=== PATIENT | female | born 1975 | race Caucasian/White ===

== ENCOUNTER 2025-03-13 14:46 | Outpatient (AMB) | payer BC, SELFPAY ==
--- OUTSIDE RECORDS SUMMARY | 2025-01-31 04:30 | XMS_ITS ---
Author Organization [facility] [address] Address [address] [place] [address] Care Team Providers Care Pharmaceutical Analyst Name Role Phone LILIAN ALBARRAN Unavailable [phone] Encounters Encounter Location Date Provider Diagnosis [facility] [address] [place] [address] 01/31/2025 LILIAN ALBARRAN Plan Of Treatment Next Appt Details Provider Name:LILIAN ALBARRAN, 03/27/2025 02:45:00 PM, [address], [place], [address], Progress Notes * Douglas POZOaDOB:1975 (49 yo F)Acc No.[id number]:01/31/2025 Patient: Demi MOHINIDouglasa Provider: Matilde JALLOH PA-C :1975 A ge:49 Y S ex:Female Date:01/31/2025 Address:[address] Subjective: * Chief Complaints: * * Medical History: Objective: * Vitals: Assessment: Plan: * Treatment: * Images: Billing Information: * Visit Code: * Procedure Codes: * Electronic signature of NED ALBARRAN PA-C on 03/13/2025 at 06:25 PM EDT Sign off status: Pending * Provider: Matilde JALLOH PA-C Date: 0 01/31/2025 Generated for Ariela reilly/Candelario/eTransmitting on: 0 03/13/2025 06:25 PM EDT
--- NOTE | 2025-03-13 15:02 | MHC.OFFVIS ---
Intake Visit Reasons: sooner appt for results of MRI Allergies prednisone Allergy (Unknown, Verified 03/13/25 12:28) Unknown sulfamethoxazole (From Bactrim) Allergy (Unknown, Verified 03/13/25 12:28) Unknown trimethoprim (From Bactrim) Allergy (Unknown, Verified 03/13/25 12:28) Unknown Medication List - Last Reconciled 03/13/25 by Brit Esteban MD anastrozole 1 mg PO DAILY gabapentin 600 mg PO DAILY levothyroxine (Synthroid) 150 mcg PO DAILY tirzepatide (weight loss) (Zepbound) 7.5 mg subcut QWEEK HPI Comments Details: Left arm numbness is less. MRI of brachial plexus is negative. Has some C5-6 degen disc disease. Lately calves have been hurting more. 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 She had left forearm , elbow down and numbness and tingly and uncomfortable in dorsum of hand and thenar eminence more consistent. She was doing okay. She was having some numbness and tingling to left hand on and off for last few months. There was some discomfort, but no significant pain. No weakness. Stable pattern and degree of discomfort in lower legs, some stabbing in toes and sides of feet, generally controlled with gabapentin. She was still going for some walks. Sleep was generally okay. ? Completed oral chemo in 01/2022. Completed RT in 01/2020 to left clavicular area. Arm symptoms have resolved. MRI brain in spring 2021 was negative. No headaches. Stopped amitriptyline after not feeling great in morning one day. 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 She had lumpectomy followed by chemotherapy and radiation. She had second round of chemotherapy with Herceptin and tamoxifen from 01/2020 - 09/06/2020. Shortly after starting second round of chemotherapy in 01/2020, she started to get headaches described as dull, mild pressure over forehead and top of head which became more frequent and persistent. No other associated symptoms. In 11/2019, after having first round of chemotherapy, she noticed some restless in her legs, pain in the right leg, pins and needles, and stabbing pains in the toes of both feet for which she has been using gabapentin. She has disrupted night sleep and frequently will wake up and stay up for one hour or more during the night. She is under considerable stress at home with her ex- and taking care of 3 small children. [facility] Medical History (Updated 03/13/25 @ 15:15 by Brit Esteban MD) Breast cancer Hypothyroidism Raynauds syndrome Carpal tunnel syndrome Peripheral neuropathy Tension headache Review of Systems Const Details: General/Constitutional:? Change in appetitedenies.? Chillsdenies.? Fatigueadmits.? Feverdenies.? Weight gaindenies.? Weight lossdenies. ???Sleep:? Difficulty getting to sleepdenies.? Difficulty maintaining sleepadmits.? Urge to move legsadmits.? Teeth grindingadmits.? Shouting or Kicking during sleepdenies.? Abnormal behavior during sleepdenies.? Excessive sleepdenies.? Snoringadmits.? Daytime sleepinessdenies. ???Respiratory:? Shortness of breathadmits.? Chest paindenies.? Coughadmits. ???Cardiovascular:? Chest pain at restdenies.? Chest pain with exertiondenies.? Claudicationdenies.? Dizzinessdenies.? Fluid accumulation in the legsdenies.? Irregular heartbeatdenies.? Palpitationsdenies. ???Gastrointestinal:? Abdominal paindenies.? Constipationadmits.? Diarrheadenies.? Difficulty swallowingdenies.? Heartburnadmits.? Nauseaadmits.? Rectal bleedingdenies. ???Genitourinary:? Frequent urinationdenies.? Urgencydenies.? Incontinencedenies.? Erectile Dysfunctiondenies. ???Musculoskeletal:? Neck paindenies.? Back paindenies.? Muscle achesdenies.? Painful jointsdenies.? Sciaticadenies.? Weaknessdenies. ???Neurologic:? Difficulty swallowingdenies.? Balance difficultydenies.? Coordinationnormal.? Difficulty speakingdenies.? Dizzinessdenies.? Faintingdenies.? Gait abnormalitydenies.? Headacheadmits.? Loss of strengthdenies.? Loss of use of extremitydenies.? Low back paindenies.? Memory lossadmits.? Seizuresdenies.? Ticsdenies.? Tingling/NumbnessFeet. Pain in freezing feeling in the hands.? Transient loss of visiondenies.? Tremordenies. ???Psychiatric:? Anxietydenies.? Auditory/visual hallucinationsdenies.? Delusionsdenies.? Depressed mooddenies.? Stressorsdenies.? Substance abusedenies.? Suicidal thoughtsdenies. Physical Exam Neuro Other: Neurological: Abnormal neurological findings:??Ankle reflexes are 1+. No sensory deficits. Weakness of the abductor pollicis brevis bilaterally. 5-/5 L tricep. 5-/5 L finger spread.?Mental Status:??alert and oriented X 3,?Normal attention, orientation, memory and affect.?Cranial Nerves:??Pupils are equal, round and reactive to light. Fundoscopy shows normal disc bilaterally. External occular muscles are intact. Visual barron are full, no ptosis. Face is symmetrical, no facial weakness or droop. Facial sensations are normal. Tongue protrudes in midline. Palate elevates symmetrically. Shoulder shrugging is normal..?Motor Examination:??Weak APB bilaterally otherwise Normal muscle tone, bulk and strength,No atrophy or fasciculations,No drift of the extended upper extremities,Deep tendon reflexes are 2+,Plantars are flexor.?Straight Leg Raising:??90 degrees.?Sensory Exam:??Normal light touch, temperature, pinprick, vibration and joint-position sensations?,?Rhomberg sign is absent.?Coordination:??no ataxia,?no titubation,?theuyf-iy-kizw, pxgp-ujrm-ivrl test and rapid alternating movements were normal.?Gait Exam:??Within normal limits.?Cerebellar Signs:??Wgjegt-bq-gvmt and jcdf-ex-awaj is normal,?no dysdiadochokinesia?.?Extrapyramidal System:??No tremor, rigidity with normal facial expressions,?No bradykinesia, no bradyphrenia. Normal arm swing and posture. No propulsion or retropulsion.?Speech:??Normal,?no dysphasia or dysarthria..? Mini Mental Status Exam: Level of Consciousness:??Alert.?Orientation:??Knows correct year, month, date, day and season,?Knows correct city, county and state. Knows correct location and floor.?Registration:??Able to register 3 objects.?Attention:??Serial 7's performed accurately.?Recall:??Able to recall 3 out of 3 objects.?Language:??Normal spontaneous speech, fluency, repetition,naming, comprehension, reading and writing.?Total Score:??30/30.? General Examination: GENERAL APPEARANCE:??normal,?in no acute distress.?HEART:??S1, S2 normal,?no murmurs.?LUNGS:??clear anteriorly and posteriorly.?MUSCULOSKELETAL:??normal.?EXTREMITIES:??no edema.?PSYCH:??alert, oriented,?cognitive function intact,?cooperative with exam.? Assessment & Plan Assessment & Plan (1) Brachial plexus disorders: Comment: 11/28/24 NCV/EMG UE Normal motor and sensory nerve conduction velocities in the upper extremities. Normal EMG in the left C5-T1 innervated muscles. 12/20/24 Normal MRI brachial plexus. Mild to moderate multifocal degen. disc disease zaheer. at C5-6 Code(s): G54.0 - Brachial plexus disorders Category: Medical (2) Cervical radiculitis: Code(s): M54.12 - Radiculopathy, cervical region Category: Medical Plan Use cervical pillow. Neck stretching exercises Coding Level of Care Code Est Pt Level 4 (13399) Diagnoses Brachial plexus disorders G54.0 Cervical radiculitis M54.12
--- OUTSIDE RECORDS SUMMARY | 2025-03-13 18:26 | XMS_ITS | Clinical Summary ---
Author Organization [facility] Address [address] [place] [address] Phone Care Team Providers Care Process Checker Name Role Phone Parris Mcdaniel MD Primary Care Prov ider Allergies Active Allergy Reactions Criticality Noted Date Comments Pollen Extracts 11/18/2020 Prednisolone 05/21/2020 Other Reaction(s): Rash/Dermatitis Dose pack Sulfamethoxazole-Trimethopri m Rash 07/31/2019 Medications cholecalcifero l, vitamin D3, 100 mcg (4,000 unit) tablet Take by mouth. Ac tive gabapentin (NEURONTIN) 300 mg capsule Take 300 mg by mouth 2 times daily. Active loratadine (CLARITIN) 10 mg tablet Take 10 mg by mouth daily. Active ondansetron (ZOFRAN) 4 mg tablet Take by mouth. 4 Active semaglutide (Wegovy) 1 mg/0.5 mL injection pen INJECT 1 MG SUBCUTANEOUSLY WEEKLY 4 Active levothyroxine (SYNTHROID, LEVOTHROID) 150 mcg tablet Take 1 Tablet by mouth daily for 180 days. 90 tablet 3 5 Active sodium,potassi um,mag sulfates (Suprep Bowel Prep Kit) 17.5-3.13-1.6 gram recon soln bowel prep kit oral solution Take 177ML by mouth for 2 doses. SEE INSTRUCTIONS PROVIDED BY OFFICE. 1 kit 5 Active anastrozole (ARIMIDEX) 1 mg Take 1 tablet (1 mg total) by mouth 1 (one) time each day Swallow whole with a drink of water. 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 S/p left partial mastectomy and sentinel lymph node biopsies on 10/31/2019 Vitamin D insufficiency 07/07/2018 Eczema 07/05/2018 Borderline hypercholesterolemia 06/24/2018 Hypothyroidism 06/24/2018 Resolved Problems Problem Noted Date Diagnosed Date Resolved Date Morbid obesity with BMI of 4 0.0-44.9, adult ([facility] V24, [facility] V28) 04/11/2024 10/17/2024 Class 3 severe obesity in adult 08/29/2020 10/17/2024 Encounters Date Type Department Care Team Description 03/13/2025 Telephone Adult Medicine [address] [phone] Parris Cerna MD 02/01/2025 6:00 PM EDT Office Visit [facility] [address] [phone] Caitlyn Owen NP Ceruminosis, bilateral (Primary Dx); Otalgia of both ears 02/01/2025 Telephone Adult Medicine [address] [phone] Brenda Armstrong [place] 12/22/2024 2:56 PM EDT Anesthesia Event [facility] Endoscopy [address] [place] [phone] Drew Livingston MD Chang, Daniel J, MD 12/22/2024 12:48 PM EDT - 12/22/2024 11:59 PM EDT Hospital Encounter [facility] Endoscopy [address] [place] [phone] Kiran Curiel MD Kapplan, Jacob A, CRNA Colon cancer screening Discharge Disposition: Home or Self Care 12/22/2024 Telephone Gastroenterology - [address] [phone] Myla Cabrales [place] 12/20/2024 12:47 PM EDT - 12/20/2024 11:59 PM EDT Hospital Encounter [facility] MRI [address] [place] [phone] Brachial plexus disorders Discharge Disposition: Home or Self Care from Last 3 Months Immunizations Name Administration Dates Next Due Influenza Quadravalent, MDCK , 0.5ml, preservative free (Flucelvax) 6mo and older 04/22/2022,04/28/2020 Influenza trivalent, 0.5mL, preservative free (Fluarix; FluLaval; Fluzone) ages 6mo and older (Afluria) 3 years and older 03/19/2021,02/11/2019 [employer] PTY SARS-CoV-2 COVID-19, mRNA, LNP-S, preservative free 05/08/2021,09/17/2020,08/27/2020 Tdap Tetanus diptheria acell ular pertussis (Boostrix; Adacel) 7yo and older 12/22/2022,02/19/2012,12/20/2011 Surgical History Surgery Date Site/Laterality Comments OTHER SURGICAL HISTORY PROCEDURE: ND ARTHRS KNEE DRLG OSTEOCHOND DISSECANS INT FIXJ OTHER SURGICAL HISTORY 06/02/2019 Right PROCEDURE: ---- OTHER ----; COMMENT: port a cath BREAST BIOPSY PROCEDURE: BX BREAST; PERC NEEDLE CORE W/IMAG GUID; COMMENT: left breast 2019 BREAST LUMPECTOMY 10/2019 Left PROCEDURE: HISTORICAL BREAST LUMPECTOMY OTHER SURGICAL HISTORY Bilateral PROCEDURE: ND UNLISTED LAPAROSCOPY PROCEDURE OVIDUCT OVARY; COMMENT: BSO OOPHORECTOMY Bilateral KNEE SURGERY Medical History Medical History Date Comments Hypothyroidism 06/24/2018 DX:Hypothyroidis m Borderline hypercholesterolemia 06/24/2018 DX:Borderline hypercholesterolemia Borderline hypertension 06/24/2018 DX:Borde rline hypertension Morbid obesity with BMI of 4 0.0-44.9, adult ([facility], [facility] V28) 06/24/2018 DX:Morbid obesity wit h BMI of 40.0-44.9, adult ([facility]) Eczema 07/05/2018 DX:Eczema Vitamin D insufficiency 07/07/2018 DX:Vitam in D insufficiency Ascending aorta dilatation ( [facility] V24) 10/13/2019 DX:Ascending aorta dilatatio n ([facility]); COMMENT: 10/15 4.1 cm on echo Breast cancer ([facility] V24, [facility] V28) 07/19/2019 DX:Breast cancer ([facility]); COMM ENT: 05/16 left infiltrating ductal carcinoma Breast cancer ([facility] V24, [facility] V28) 07/19/2019 DX:Breast cancer ([facility]) Osteopenia 09/14/2023 DX:Osteopenia 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 Family History Medical History Relation Name Comments Breast cancer Aunt Maternal No Known Problems Daughter Hypertension Father Other: Prediabetes Half-Sister 1 Maternal No Known Problems Half-Sister 2 Maternal No Known Problems Half-Sister 3 Maternal Emphysema Maternal Grandfather + Smoke r Heart failure Maternal Grandmother Stroke Maternal Grandmother Cervical cancer Mother Diabetes Mother Other: Atrial Fibrillation Mother No Known Problems Son 1 No Known Problems Son 2 Colon cancer Neg Hx Heart attack Neg Hx Ovarian cancer Neg Hx Prostate cancer Neg Hx Relation Name Status Comments Aunt Maternal Daughter Alive Father Alive Half-Sister 1 Maternal Alive Half-Sister 2 Maternal Alive Half-Sister 3 Maternal Alive Maternal Grandfather Maternal Grandmother Mother Alive Paternal Grandfather Paternal Grandmother Son 1 Alive Son 2 Alive Social History Tobacco Use Types Packs/Day Years Used Date Smoking Tobacco: Never Smokeless Tobacco: Never Alcohol Use Standard Drinks/Week Comments No 0 (1 standard drink = 0.6 oz pur e alcohol) Housing Instability Answer Date Recorde d Are you worried that in the next 2 months you may not have stable housing? No 02/01/2025 Food Access & Nutrition Answer Date Rec orded Do you have access to a vari ety of food including fruits and vegetables? Yes 02/01/2025 Access to Healthcare Answer Date Record ed Within the last 3 months, ho w many times did you visit the emergency department for your medical care? 0 02/01/2025 Health Literacy Answer Date Recorded How often do you need to hav e someone help you when you read instructions, pamphlets, or other written material from your doctor or pharmacy? Never 02/01/2025 Caregiver: How often do you need to have someone help you when you read instructions, pamphlets, or other written material from your doctor or pharmacy? Not on file 02/01/2025 Financial Risk Answer Date Recorded How hard is it for you to pa y for the very basics like food, housing, medical care, and air conditioning / heating? Not very hard 02/01/2025 Transportation Answer Date Recorded Has the lack of transportati on kept you from meetings, work, or from getting things needed for daily living? No Has the lack of transportati on kept you from medical appointments or from getting medications? No 02/01/2025 Social Isolation Answer Date Recorded How often do you feel lonely or isolated from th ose around you? Never 02/01/2025 Food Risk Answer Date Recorded Within the past 12 months we worried whether our food would run out before we got money to buy more. Never true 02/01/2025 Within the past 12 months th e food we bought just didn't last and we didn't have money to get more. Never true 02/01/2025 Dependent Care Answer Date Recorded Do you need help finding or paying for care for your loved ones. For example, child nutrition assistant or elderly care for an older adult? No 02/01/2025 Education Answer Date Recorded Do you think completing more education or training, like finishing a GED, going to college, or learning a trade, would be helpful for you? No 02/01/2025 Employment and Income Answer Date Recor ded During the last four weeks, have you been actively looking for work? No 02/01/2025 Living Situation Answer Date Recorded What is your living situation? 0 02/01/2025 Interpersonal Safety Answer Date Record ed Physical Abuse 12/22/2024 Verbal Abuse 12/22/2024 Comments No Sex and Gender Information Value Date Recorded Sex Assigned at Not on file Legal Sex Female 4:22 PM EDT Gender Identity Not on file Sexual Orientation Not on file Occupation Industry Job Start Date Job End Date teacher Not on file Not on file Not on file Obstetrics History * This document contains information received from the source organization and may not represent a complete record from that organization. Para Term AB IAB SAB Ectopic Multiple Livin g Live Births 3 2 2 1 3 3 Date Outcome GA Total Labor Labor/2nd/3rd Weight Sex Type Anes PTL Josselin A1 A5 Name Clin Term M Living Term M Living Term F Living Last Filed Vital Signs Vital Sign Reading Time Taken Comments Blood Pressure 111/85 02/01/2025 5:43 PM EDT Pulse 76 02/01/2025 5:43 PM EDT Temperature 36.3 C (97.3 F) 02/01/2025 5:43 PM EDT Respiratory Rate 16 12/22/2024 3:38 PM EDT Oxygen Saturation 98% 12/22/2024 3:28 PM EDT Inhaled Oxygen Concentration - - Weight 88.5 kg (195 lb) 12/22/2024 2:33 PM EDT Height 171.5 cm (5' 7.5 ) 12/22/2024 2:33 PM EDT Body Mass Index 30.09 12/22/2024 2:33 PM EDT Plan of Treatment Upcoming Encounters Date Type Department Care Team (Late st Contact Info) Description 03/29/2025 2:30 PM EDT [facility]ointment [facility] [address] [phone] 04/17/2025 2:40 PM EDT Office Visit Breast Care [address] [phone] Ana Maria Sánchez MD [address] [place] [phone] 05/21/2025 2:30 PM EST Office Visit [facility] Hematology Oncology [address] [place] [phone] Ryanne Flaherty DO [address] [place] [phone] 08/23/2025 3:40 PM EST Office Visit Endocrinology - [place] [address] [place] [phone] Leeanna Berman PA [address] [place] [address] Health Maintenance Due Date Last Done Comments Hepatitis B Vaccines (1 of 3 - 19+ 3-dose series) 1994 Pneumococcal Vaccine: Pediatrics (0 to 5 Years) and At-Risk Patients (6 to 49 Years) (1 of 2 - PCV) 1994 Depression Screening 06/28/2024 COVID-19 Vaccine ( - 2024- season) 2025 05/08/2021, 09/17/2020, 08/27/2020 Influenza Vaccine (#1) 2025 , 04/17/2023, 04/22/2022, Additional history exists Breast Cancer Screening 03/27/2025 09/26/19, 09/07/2024, 09/03/2023, Additional history exists Social Influencers of Health Screening 02/01/2026 02/01/2025 Cholesterol Screening (Lipid Panel) 04/10/2029 04/10/2024, 04/10/2024 Cervical Cancer Screening: HPV 09/07/2029 09/07/2024, 05/19/2019 DTaP,Tdap,and Td Vaccines (4 - Td or Tdap) 12/22/2032 12/22/2022, 02/19/2012, 12/20/2011 Colorectal Cancer Screening: Colonoscopy 12/22/2034 12/22/2024 HIV Screening Completed 08/15/2019 Hepatitis C Screening Completed 08/15/2019 HIB Vaccines Aged Out No longer eligi ble based on patient's age to complete this topic HPV Vaccines Aged Out No longer eligi ble based on patient's age to complete this topic Hepatitis A Vaccines Aged Out No long er eligible based on patient's age to complete this topic IPV Vaccines Aged Out No longer eligi ble based on patient's age to complete this topic MMR Vaccines Aged Out No longer eligi ble based on patient's age to complete this topic Meningococcal ACWY Vaccine Aged Out N o longer eligible based on patient's age to complete this topic Meningococcal B Vaccine Aged Out No l onger eligible based on patient's age to complete this topic RSV Immunization Patients Under 20 months Aged Out No longer eligible based on patient's age to complete this topic Varicella Vaccines Aged Out No longer eligible based on patient's age to complete this topic Procedures Procedure Name Priority Date/Time Associated Diagnosis Comments POC RAPID [id number], MOLECULAR Routine 02/03/2025 11:54 AM EDT Otalgia of both ears ND REMOVAL CERUMEN IMPACTED IRRIGATION/LAVAGE UNILATERAL Routine 02/01/2025 5:52 PM EDT Ceruminosis, bilateral COLONOSCOPY Routine 12/22/2024 3:17 PM EDT Colon cancer screening MR CHEST WO AND W CONTRAST Routine 12/20/2024 2:08 PM EDT Brachial plexus disorders MG MAMMO DIAGNOSTIC ADDL VIEWS RIGHT Routine 09/25/2024 3:13 PM EDT Breast asymmetry HPV WITH REFLEX GENOTYPE Routine 09/07/2024 10:11 AM EDT Encounter for well woman exam with routine gynecological exam Screening for cervical cancer LIPID PANEL Routine 04/10/2024 HEPATITIS C SCREENING Routine 08/15/2019 HIV SCREENING Routine 08/15/2019 from Last 3 Months or Most Recently Relevant to Health Maintenance Results * Poc Rapid [id number], MOLECULAR (02/03/2025 11:54 AM EDT) COVID-19/SARS- COV-2 Rapid POC Negative Negative Internal Control Pass Yes Yes Swab Nasopharyngeal structure / Unknown 02/03/2025 11:54 AM EDT Caitlyn Owen NP POINT OF CARE TEST ENTER/EDIT ORDERABLES Final Result * ND REMOVAL CERUMEN IMPACTED IRRIGATION/LAVAGE UNILATERAL (02/01/2025 5:52 PM EDT) Narrative Caitlyn Owen NP - 02/01/2025 5:52 PM EDT Caitlyn Owen NP 02/01/2025 6:21 PM Ear cerumen removal Date/Time: 02/01/2025 5:52 PM Performed by: Caitlyn Owen NP Authorized by: Caitlyn Owen NP Informed Consent: Laterality: Bilateral Relevant images/test results available and reviewed: yes Health status cleared: Yes Procedure/treatment, purpose, treatment alternatives, risks/potential complications and benefits explained: yes Patient agrees, verbalizes understanding, and wants to proceed: yes Consent given by: Patient Procedure details: Location: L ear Procedure type: irrigation Post-procedure details: Inspection: TM intact Hearing quality: Improved Caitlyn Owen NP IN CLINIC/BEDSIDE ORDERABLES F inal Result * COLONOSCOPY Anesthesia - MAC; [facility] ENDOSCOPY (12/22/2024 3:17 PM EDT) Anatomical Region Laterality Modality Other 12/22/2024 2:49 PM EDT Impressions 12/22/2024 3:17 PM EDT - The entire examined colon is normal on direct and retroflexion views. - No specimens collected. Recommendation: - Repeat colonoscopy in 10 years for screening purposes. Narrative 12/22/2024 3:17 PM EDT [facility] GI Patient Name: Hollie Pozo Procedure Date: 12/22/2024 2:49 PM Date of : 1975 Age: 49 Room: ROOM 14 Gender: Female Note Status: Finalized Attending MD: Kiran Curiel MD, Procedure Date No Time: 12/22/2024 Procedure: Colonoscopy Indications: Screening for colorectal malignant neoplasm Providers: Kiran Curiel MD Referring MD: Kiran Curiel MD Medicines: Propofol per Anesthesia Complications: No immediate complications. Estimated Blood Loss: Estimated blood loss: none. Procedure: Pre-Anesthesia Assessment: - ASA Grade Assessment: II - A patient with mild systemic disease. After I obtained informed consent, the scope was passed under direct vision. Throughout the procedure, the patient's blood pressure, pulse, and oxygen saturations were monitored continuously.The Colonoscope was introduced through the anus and advanced to the cecum, identified by appendiceal orifice and ileocecal valve. The colonoscopy was performed without difficulty. The patient tolerated the procedure well. The quality of the bowel preparation was adequate. Findings: The perianal and digital rectal examinations were normal. The entire examined colon appeared normal on direct and retroflexion views. Procedure Code(s): --- Professional --- G0121, Colorectal cancer screening; colonoscopy on individual not meeting criteria for high risk Diagnosis Code(s): --- Professional --- Z12.11, Encounter for screening for malignant neoplasm of colon CPT copyright 2020 [employer]. All rights reserved. The codes documented in this report are preliminary and upon surgical coder review may be revised to meet current compliance requirements. Kiran Curiel MD 12/22/2024 3:17:03 PM This report has been signed electronically.Kiran Curiel MD Number of Addenda: 0 Note Initiated On: 12/22/2024 2:49 PM Scope In: Scope Out: Endoscopy Department at [facility] - [address] [place] [phone] Procedure Note Kiran Curiel MD - 12/22/2024 [facility] GI Patient Name: Hollie Pozo Procedure Date: 12/22/2024 2:49 PM Date of : 1975 Age: 49 Room: ROOM 14 Gender: Female Note Status: Finalized Attending MD: Kiran Curiel MD, Procedure Date No Time: 12/22/2024 Procedure: Colonoscopy Indications: Screening for colorectal malignant neoplasm Providers: Kiran Curiel MD Referring MD: Kiran Curiel MD Medicines: Propofol per Anesthesia Complications: No immediate complications. Estimated Blood Loss: Estimated blood loss: none. Procedure: Pre-Anesthesia Assessment: - ASA Grade Assessment: II - A patient with mild systemic disease. After I obtained informed consent, the scope was passed under direct vision. Throughout theprocedure, the patient's blood pressure, pulse, and oxygen saturations were monitored continuously.The Colonoscope was introduced through the anus and advanced to the cecum, identified by appendiceal orifice and ileocecal valve. The colonoscopy was performed without difficulty. The patient tolerated the procedure well. The quality of the bowel preparation was adequate. Findings: The perianal and digital rectal examinations were normal. The entire examined colon appeared normal on direct and retroflexion views. Procedure Code(s): --- Professional --- G0121, Colorectal cancer screening; colonoscopy on individual not meeting criteria for high risk Diagnosis Code(s): --- Professional --- Z12.11, Encounter for screening for malignantneoplasm of colon CPT copyright 2020 [employer]. All rights reserved. The codes documented in this report are preliminary and upon surgical coder reviewmay be revised to meet current compliance requirements. Kiran Curiel MD 12/22/2024 3:17:03 PM This report has been signed electronically.Kiran Curiel MD Number of Addenda: 0 Note Initiated On: 12/22/2024 2:49 PM Scope In: Scope Out: Endoscopy Department at [facility] - [address] [place] [phone] IMPRESSION: - The entire examined colon is normal on direct and retroflexion views. - No specimens collected. Recommendation: - Repeat colonoscopy in 10 years for screening purposes. Kiran Curiel MD GI~PROCEDURE ORDERABLES Fin al Result * MR Chest wo and w Contrast (12/20/2024 2:08 PM EDT) Anatomical Region Laterality Modality Chest, Body Magnetic Resonan ce 12/20/2024 2:33 PM EDT Impressions 12/20/2024 2:40 PM EDT Normal MRI of the left brachial plexus. -------- FINAL REPORT -------- Dictated By: Rene Loaiza Dictated Date: 12/20/2024 14:33 ET Assigned Physician: Rene Loaiza Reviewed and Electronically Signed By: Rene Loaiza Signed Date: 12/20/2024 14:40 ET Workstation ID: [id number] Transcribed By: Self Edit Transcribed Date: 12/20/2024 14:33 ET Narrative 12/20/2024 2:40 PM EDT PROCEDURE: MRI of the left brachial plexus with intravenous contrast. HISTORY: BRACHIAL PLEXUS DISORDER ? LESION. TECHNIQUE: Multiplanar multisequence MRI of the chest with and without intravenous contrast. IV contrast dose: 17 mL Dotarem from a 20 mL vial with 3 mL discarded. COMPARISON: None. FINDINGS: The nurse of the left brachial plexus are normal in caliber and signal. There is no compressing mass or fluid collection. No abnormal enhancement. Limited views of the right brachial axis are also unremarkable. Mild-moderate multifocal degenerative changes of the cervical endplates and facet joints, most prominent at C5-6. Partially visible mild degenerative changes of both glenohumeral joints. No concerning marrow infiltrative lesion. Visualized portions of the upper mediastinum are normal. Incidental note of a bovine aortic arch. Soft tissues of the neck are unremarkable. There is no mass, fluid collection, or lymphadenopathy. Procedure Note Rene Loaiza MD - 12/20/2024 PROCEDURE: MRI of the left brachial plexus with intravenous contrast. HISTORY: BRACHIAL PLEXUS DISORDER ? LESION. TECHNIQUE: Multiplanar multisequence MRI of the chest with and withoutintravenous contrast. IV contrast dose: 17 mL Dotarem from a 20 mL vial with 3 mL discarded. COMPARISON: None. FINDINGS: The nurse of the left brachial plexus are normal in caliber and signal.There is no compressing mass or fluid collection. No abnormalenhancement. Limited views of the right brachial axis are also unremarkable. Mild-moderate multifocal degenerative changes of the cervical endplatesand facet joints, most prominent at C5-6. Partially visible milddegenerative changes of both glenohumeral joints. No concerning marrowinfiltrative lesion. Visualized portions of the upper mediastinum are normal. Incidental noteof a bovine aortic arch. Soft tissues of the neck are unremarkable. There is no mass, fluidcollection, or lymphadenopathy. IMPRESSION: Normal MRI of the left brachial plexus. -------- FINAL REPORT -------- Dictated By: Rene Loaiza Dictated Date: 12/20/2024 14:33 ET Assigned Physician: Rene Loaiza Reviewed and Electronically Signed By: Rene Loaiza Signed Date: 12/20/2024 14:40 ET Workstation ID: [id number] Transcribed By: Self Edit Transcribed Date: 12/20/2024 14:33 ET Brit Esteban MD IMG MRI PROCEDURES Final Result * MG Mammo Diagnostic Addl Views Right (09/25/2024 3:13 PM EDT) Anatomical Region Laterality Modality Breast Right Mammography 09/25/2024 3:09 PM EDT Impressions 09/25/2024 3:15 PM EDT The suspected abnormality in the outer right breast becomes much less prominent with diagnostic imaging. There is no sonographic correlate. There is no targetable abnormality. In view of the history of contralateral breast cancer I recommend a diagnostic right mammogram in 6 months as a precaution ASSESSMENT: BI-RADS 3: PROBABLY BENIGN RECOMMENDATION(S): 1: Follow-up diagnostic mammogram RIGHT in 6 months. [facility] [address], [id number] -------- FINAL REPORT -------- Dictated By: Owen Dean Dictated Date: 09/25/2024 15:09 ET Assigned Physician: Owen Dean Reviewed and Electronically Signed By: Owen Dean Signed Date: 09/25/2024 15:15 ET Workstation ID: [id number] Transcribed By: Self Edit Transcribed Date: 09/25/2024 15:11 ET Narrative 09/25/2024 3:15 PM EDT EXAM: DIAGNOSTIC MAMMOGRAPHY, UNILATERAL RIGHT ULTRASOUND: DIAGNOSTIC ULTRASOUND, UNILATERAL RIGHT HISTORY: Abnormal screening mammogram. Equivocal asymmetry outer right breast. Personal history left breast cancer. COMPARISON: Right mammography 09/07/24, 09/03/23, 08/21/22, 09/10/21, 08/07/20 TECHNIQUE: Tomosynthesis of the right breast in the mediolateral projection using full field technique. ADDITIONAL IMAGING: Tomosynthesis of the upper outer right breast using spot compression High-frequency linear transducer ultrasound of the right breast targeted to the area of clinical concern. Computer aided detection was not utilized. TISSUE DENSITY: The breasts are heterogeneously dense, which may obscure small masses. (BI-RADS category C) FINDINGS: MAMMOGRAPHY: RIGHT BREAST: The suspected asymmetry in the outer right breast does not persist. There is no targetable abnormality. There is greater fibroglandular tissue in the upper-outer right breast than elsewhere in the right breast. ULTRASOUND: RIGHT BREAST The entire outer right breast was examined with high frequency linear transducer. No suspicious mass. No suspicious area of altered echotexture. Procedure Note Owen Dean MD - 09/25/2024 EXAM: DIAGNOSTIC MAMMOGRAPHY, UNILATERAL RIGHT ULTRASOUND: DIAGNOSTIC ULTRASOUND, UNILATERAL RIGHT HISTORY: Abnormal screening mammogram. Equivocal asymmetry outer rightbreast. Personal history left breast cancer. COMPARISON: Right mammography 09/07/24, 09/03/23, 08/21/22, 09/10/21,08/07/20 TECHNIQUE: Tomosynthesis of the right breast in the mediolateralprojection using full field technique. ADDITIONAL IMAGING: Tomosynthesis of the upper outer right breast usingspot compression High-frequency linear transducer ultrasound of the right breast targetedto the area of clinical concern. Computer aided detection was not utilized. TISSUE DENSITY: The breasts are heterogeneously dense, which may obscuresmall masses. (BI-RADS category C) FINDINGS: MAMMOGRAPHY: RIGHT BREAST: The suspected asymmetry in the outer right breast does not persist. Thereis no targetable abnormality. There is greater fibroglandular tissue in the upper-outer right breastthan elsewhere in the right breast. ULTRASOUND: RIGHT BREAST The entire outer right breast was examined with high frequency lineartransducer. No suspicious mass. No suspicious area of altered echotexture. IMPRESSION: The suspected abnormality in the outer right breast becomes much lessprominent with diagnostic imaging. There is no sonographic correlate. There is no targetable abnormality. In view of the history of contralateral breast cancer I recommend adiagnostic right mammogram in 6 months as a precaution ASSESSMENT: BI-RADS 3: PROBABLY BENIGN RECOMMENDATION(S): 1: Follow-up diagnostic mammogram RIGHT in 6 months. [facility] [address], [address] -------- FINAL REPORT -------- Dictated By: Owen Dean Dictated Date: 09/25/2024 15:09 ET Assigned Physician: Owen Dean Reviewed and Electronically Signed By: Owen Dean Signed Date: 09/25/2024 15:15 ET Workstation ID: [id number] Transcribed By: Self Edit Transcribed Date: 09/25/2024 15:11 ET Parris Mcdaniel MD IMG BI PROCEDURES Final Result * HPV with reflex genotype (09/07/2024 10:11 AM EDT) Pathologist [facility] [place] HPV Negative Negative LAB MICROBIOLOGY METHOD 09/08/2024 1:45 PM EDT [facility] Brushing/Spatula Cervix uteri structure / Unknown 09/07/2024 10:11 AM EDT 09/08/2024 7:52 AM EDT Yamilet Navarro [facility] MOLECULAR DIAGNOSTICS ORD ERABLES Final Result [facility] [address] [place] [address], * (ABNORMAL) Lipid panel (04/10/2024) [facility] LDL/HDL Ratio 4 0 - 4 Triglycerides 66 0 - 150 mg/dL Cholesterol 201(A) 0 - 200 mg/dL HDL 46 >=40 mg/dL LDL Cholesterol 142(A) 0 - 100 mg/dL Blood Venous blood specimen / Unknown Result [facility] Historical Provider LAB BLOOD ORDERABLES Denisha l Result * HIV Screening (08/15/2019) Pathologist [facility] [place] HIV Screening abstracted Historical Provider HEALTH MAINTENANCE Final Result * Hepatitis C Screening (08/15/2019) [facility] Hepatitis C Screening abstracted Historical Provider HEALTH MAINTENANCE Final Result from Last 3 Months or Most Recently Relevant to Health Maintenance Insurance [facility] Care Teams Process Checker Relationship Specialty Start Date End Date Parris Mcdaniel MD [address] [place] [address] PCP - General Internal Medicine 01/26/22
--- OUTSIDE RECORDS SUMMARY | 2025-03-13 18:26 | XMS_ITS ---
Author Name [facility] Organization Unknown Care Team Organization Name Specialty Phone Email Start Date End Da te [facility] Parris Wise Primary Care 11/02/2022 02/14/2024 [facility] Fidelina Salinas Primary Care 05/05/202202/13
--- OUTSIDE RECORDS SUMMARY | 2025-03-13 18:26 | XMS_ITS | Encounter Summary ---
Author Organization [facility] Address [address] [place] [address] Care Team Providers Care Audio Visual Facilities Engineer Name Role Phone Parris Mcdaniel MD Primary Care Prov ider Reason for Referral * Consultation (Routine) - Closed Specialty Diagnoses / Procedures Referred By Contac t Referred To Contact Neurology Diagnoses Paresthesia of arm Parris Mcdaniel MD [address] [place] [address] Phone: tel: fax: Brit Esteban MD [address] [place] [address] [place] [address] Phone: tel: fax: Referral ID Status Reason Start Date Expiration Date V isits Requested Visits Authorized [id number] Closed Specialty Services Required 03/13/2025 03/13/2026 6 6 Reason for Visit * Reason Onset Date Comments Referral 03/13/2025 Neurology Insura nhe Referral Encounter Details Date Type Department Care Team (Late st Contact Info) Description 03/13/2025 Telephone Adult Medicine [address] [phone] Parris Mcdaniel MD [address] [place] [address] Social History Tobacco Use Types Packs/Day Years [...] for your loved ones. For example, child care nurse or elderly care for an older adult? [...] file Not on file Not on file documented as of this encounter Progress Notes * Radha Mccurdy - 03/13/2025 3:40 PM EDT What insurance does the patient have today? Payor: @[email or web address]@/@[email or web address]@ Referrals cannot be processed if the insurance is not accurate. If the insurance listed above is NO BILLING INFORMATION FOUND FOR THIS ENCOUNTER then the patients correct insurance must be obtainedand registered in [facility] or their referral can not be processed. Name of person calling to request this referral? Fax -[facility] [place] Neurology & Sleep Referred To Provider (Include first and last name): Brit Esteban NPI (if known): [id number] Order/Specialty requested neurology Chief Complaint (Note: This is not a body part or a procedure): forearm paresthesia Has the patient seen provider for this problem/Dx before? Referred To Provider Address: [address] [place] [address] Referred To Provider Referred To Provider Does patient have an appointment scheduled?: yes If yes, what is the date of the appointment?: 03/13/25 Is this a retro request? no Number of visits requested: 6 Is this appointment related to: MVA or worker compensation? no documented in this encounter Plan of Treatment Upcoming Encounters Date Type Department Care Team (Late st Contact Info) Description 03/29/2025 2:30 PM EDT [facility]ointment [facility] [address] [phone] 04/17/2025 2:40 PM EDT Office Visit Breast Care [facility] [address] [place] [phone] Ana Maria Sánchez MD [address] [place] [address] 05/21/2025 2:30 PM EST Office Visit [facility] Hematology Oncology [address] [place] [phone] Ryanne Flaherty, [address] [place] [address] 08/23/2025 3:40 PM EST Office Visit [address] [phone] Leeanna Berman PA [address] [place] [address] Scheduled Referrals Name Type Priority Associated Diagnoses Order Schedule Ambulatory referral to Neurology Outpatient Referral Routine Paresthesia of arm Expected: 03/13/2025, Expires: 03/13/2026 documented as of this encounter Visit Diagnoses Diagnosis Paresthesia of arm- Primary documented in this encounter Care Teams Audio Visual Facilities Engineer Relationship Specialty Start Date End Date Parris Mcdaniel MD [address] [place] [address] PCP - General Internal Medicine 01/26/22 documented as of this encounter
--- OUTSIDE RECORDS SUMMARY | 2025-03-13 18:26 | XMS_ITS | Patient Health Record ---
Author Organization [facility] [address] Address [address] [place] [address] Care Team Providers Care Anesthesiology Technologist Name Role Phone LILIAN ALBARRAN Unavailable [phone] ARMSTRONGNIGEL NELSON Unavailable [phone] ANNY BROWN Unavailable [phone] Allergies Allergen (clinical drug ingredient) Drug/Non Drug Allergy documented on EMR Reaction Allergy Type Onset Date Status sulfamethoxazole / trimethoprim Bactrim rash Drug Allergy Active predniSONE rash Drug Allergy Active Seasonale Unknown Drug Allergy Active Reason For Referral No Information Medications Medication SIG (Take, Route, Frequency, Duration) Notes Start Date End Date Status Anastrozole 1 MG 1 tablet Orally Once a day Active Vitamin D 50 MCG (1999) 1 tablet Orally Once a day Active Magnesium Glycinate Active Ondansetron HCl 4 MG 1 tablet Orally Onc e a day; Duration: 20 days 09/29/2023 Active Synthroid 200 MCG 1 tablet in the morn ing on an empty stomach Orally Once a day 150mg Active Claritin 10 MG 1 tablet Orally Once a day Active Zepbound 7.5 MG/0.5ML 7.5 mg Subcutaneou s weekly; Duration: 30 days Active Gabapentin 300 MG 1 capsule Orally twi ce a day Active Problems Problem Type SNOMED Code ICD Code Onset Dates Problem Status W/U Status Risk Notes Problem Acquired hypothyroidism (658500484) Acquired hypothyroidism (E03.9) Active confirmed Problem Lymphedema (51486776) Lymphedema (I89.0) Active confirmed Problem Obesity (940165570) Obesity (BMI 30-39.9) (E66.9) Active confirmed Problem Personal history of primary malignant neoplasm of breast (304784737) History of breast cancer (Z85.3) Active confirmed Problem BMI 30+ - obesity (351338990) BMI 32.0-32.9,adult (Z68.32) Active confirmed Problem Body mass index 30.00 to 34.99 (969890180581563) BMI 31.0-31.9,adult (Z68.31) Active confirmed Problem Body mass index 30+ - obesity (763940520) BMI 30.0-30.9,adult (Z68.30) Active confirmed Problem Constipation by delayed colonic transit (40552790) Constipation by delayed colonic transit (K59.01) Active confirmed Problem Restless legs (70229774) Restless leg (G25.81) Active confirmed Problem Constipation (51822160) Constipation (K59.00) Active confirmed Vital Signs Heart Rate 78 /min 02/12/2025 Oximetry 98 % 02/12/2025 Blood pressure diastolic 78 mm Hg 02/12/2025 Height 67.5 in 02/12/2025 Blood pressure systolic 120 mm Hg 02/12/2025 Weight 200.2 lbs 02/12/2025 BMI 30.89 kg/m2 02/12/2025 Encounters Encounter Location Date Provider Diagnosis [facility] [address] [place] [address] 04/18/2024 LILIAN ALBARRAN BMI 32.0-32.9,adult Z68.32 ; Obesity (BMI 30-39.9) E66.9 ; History of breast cancer Z85.3 ; Restless leg G25.81 ; Hypothyroidism, unspecified type E03.9 ; Constipation by delayed colonic transit K59.01 and Nutritional counseling Z71.3 [facility] [address] [place] [address] 07/19/2024 LILIAN ALBARRAN BMI 31.0-31.9,adult Z68.31 ; Obesity (BMI 30-39.9) E66.9 ; History of breast cancer Z85.3 ; Restless leg G25.81 ; Hypothyroidism, unspecified type E03.9 ; Constipation by delayed colonic transit K59.01 and Nutritional counseling Z71.3 [facility] [address] [place] [address] 08/18/2024 LILIAN ALBARRAN BMI 30.0-30.9,adult Z68.30 ; Obesity (BMI 30-39.9) E66.9 ; History of breast cancer Z85.3 ; Restless leg G25.81 ; Hypothyroidism, unspecified type E03.9 ; Constipation by delayed colonic transit K59.01 and Nutritional counseling Z71.3 [facility] [address] [place], [place] 09/28/2024 LILIAN ALBARRAN BMI 31.0-31.9,adult Z68.31 ; Obesity (BMI 30-39.9) E66.9 ; History of breast cancer Z85.3 ; Restless leg G25.81 ; Hypothyroidism, unspecified type E03.9 ; Constipation by delayed colonic transit K59.01 and Nutritional counseling Z71.3 [facility] [address] [place], [place] 11/07/2024 LILIAN ALBARRAN BMI 31.0-31.9,adult Z68.31 ; Obesity (BMI 30-39.9) E66.9 ; Nutritional counseling Z71.3 ; History of breast cancer Z85.3 ; Restless leg G25.81 ; Hypothyroidism, unspecified type E03.9 ; Constipation by delayed colonic transit K59.01 and Encounter for examination of blood pressure without abnormal findings Z01.30 [facility] [address] [place], [place] 12/19/2024 LILIAN ALBARRAN BMI 30.0-30.9,adult Z68.30 ; Nutritional counseling Z71.3 ; Obesity (BMI 30-39.9) E66.9 ; History of breast cancer Z85.3 ; Restless leg G25.81 ; Constipation by delayed colonic transit K59.01 ; Encounter for examination of blood pressure without abnormal findings Z01.30 and Acquired hypothyroidism E03.9 [facility] [address] [place], [place] 02/12/2025 LILIAN ALBARRAN BMI 30.0-30.9,adult Z68.30 ; Nutritional counseling Z71.3 ; Obesity (BMI 30-39.9) E66.9 ; History of breast cancer Z85.3 ; Restless leg G25.81 ; Constipation by delayed colonic transit K59.01 ; Encounter for examination of blood pressure without abnormal findings Z01.30 and Acquired hypothyroidism E03.9 [facility] [address] [place] [address] 10/26/2024 ANNY BROWN [facility] [address] [place] [address] 12/19/2024 LILIAN ALBARRAN [facility] [address] [place] [address] 05/30/2024 NIGEL ARMSTRONG [facility] [address] [place] [address] 05/30/2024 LILIAN ALBARRAN [facility] [address] [place] [address] 07/03/2024 LILIAN ALBARRAN [facility] [address] [place] [address] 08/28/2024 LILIAN ALBARRAN [facility] [address] [facility] [address] [place] [address] 01/16/2025 LILIAN ALBARRAN Obesity (BMI 30-39.9 ) E66.9 Assessments Encounter Date Diagnosis (ICD Code) Assessment Notes Treatment Notes Treatment Clinical Notes Section Notes 04/18/2024 Obesity (BMI 30-39.9) (ICD-10 - E66.9) Vanessa is a 47-year-old female who presents the office for weight management f/u. 02/11/2023:252.3, BMI 38.93. Patient extensively educated on lifestyle modifications including high-protein foods, low carbohydrate snacks, healthy fats, sleep hygiene, stress reduction. Patient was provided with educational documentation regarding all of this. Did extensively educate on medications. She is going to talk to her oncologist about some options. In the meantime, we will order hemoglobin A1c, and insulin level. Patient will focus on lifestyle modifications. Looking to lose weight to potentially get cosmetic surgery of her breast secondary to history of breast cancer. 03/16/23: Weight 243.8, BMI 37.62. Patient lost 9 lbs through lifestyle management since last visit. Congratulated patient on effort. Has been following a goal of 17,000 calories, 60 oz of water and 80 grams of protein a day. Starts her mornings off with a walk and exercises at the gym for 45 minutes on both Wednesday and Wednesday. Body composition scan reviewed today show a drop in weight, BMI, fat mass and muscle mass but an increase in visceral adipose tissue and waist circumference. Patient educated on importance of maintaining protein intake and incorporating strength/weight training into weekly routine to prevent further muscle loss. Patient was to discuss with oncologist weight loss medications before initiating but was unable to get an appointment until April 19. Patient instructed to follow with lifestyle management and will follow up after her appointment with oncologist. No medications will be started today. We will get [facility] today. 05/06/2023: Weight 238.1, BMI 36.74. Patient congratulated on effort, continues to lose successful, steady weight with lifestyle modifications only. Encourage patient to continue with lifestyle modifications, but she is interested in potentially trying weight management medication. Did talk to her oncologist, who approved semaglutide. We will start 0.25 mg today. Educated on proper use, side effects. We will follow-up in 4 weeks. If experiencing undesirable side effects, patient will discontinue medication and continue with lifestyle modifications as she is having great success with that at this time. Patient thankful. 06/02/2023: Weight 231.7, BMI 35.75. Patient congratulated on effort, doing well overall, lack of exercise over the past month because she has been sick, treated with antibiotics for UTI/infection. Goal is to increase resistance training over the next month, as well as portion control, otherwise doing well, continue with semaglutide 0.25 mg 08/01/2023: Weight 225.5, BMI 34.79. Patient graduated an effort, continuing to lose slow, steady weight. Educated to continue with lifestyle modifications. Will continue semaglutide 0.5 mg, but will try to send Wegovy 1 mg through health insurance. 09/29/23: Weight 219.8, BMI 33.91. Patient congratulated on effort, losing slow, steady weight. Taking Wegovy 1 mg x 2 weeks, having some nausea, 2 episodes of vomiting, acid reflux, and lack of appetite. Will prescribe Zofran. Also having some concerns in regards to her bone density slightly declining. Educated on the importance of high-protein, resistance training, will cut Wegovy from 1 mg to 0.5 mg. She is aware of the national shortage, and she may have to switch back over to semaglutide 0.5 mg in office pending availability. 01/04/2024: Weight 218, BMI 33.64. Patient having some success with weight loss, body scan reviewed showing mostly fat loss, minimal muscle loss. Will increase Wegovy from 0.5 mg to 1 mg. Following up with my colleague on 02/08, and then with myself on 03/08. 02/08/23: Weight: 213 lb, BMI 32. Continue Wegovy 1 mg subcu weekly. Body composition scale shows muscle loss. Increase protein and consistent resistance training. Discussed importance of life style in conjuction with medication for effectiveness. Follow up with Pallavi Ramirez PA-C on 03/0804/18/2024: Weight 211, BMI 32.63. Patient's weight plateaued since last visit, but she was sick with pneumonia. Skipped 1 week of Wegovy, getting back on it. Requesting refill of Wegovy 1.0, and Zofran. Pleased with progress overall.Focusing on increasing protein. Resistance training 1 time weekly, walking her dog 2 days weekly. #History of breast cancer, in remission. Lymphedema on left side, educated to not take blood pressure on left side. Taking anastrozole 1 mg, BRCA negative.Oncologist states that semaglutide is safe to take with patient history #Restless leg: Taking gabapentin, educated on magnesium glycinate #Hypothyroidism: Taking Synthroid 200 mcg, follows with endocrinology. #Constipation: Educated on conservative treatment such as prune juice, hydration, exercise, as well as MiraLAX as needed etc. Total time spent today was 30 minutes of which greater than 50% was spent on coordinating and counseling Case discussed with collaborating physician Micheal Armstrong who reviewed the assessment and plan. Chart, medications, labs, vital signs reviewed. Dictation was accomplished with the use of [employer] voice recognition software, prone to medical misidentifications and grammatical errors. This is unintentional and the practitioner does try to identify and correct these, but some could still be present. Please do not hesitate to contact practitioner for clarification. All quetsions answered to patients satisfaction. Patient verbalized understanding of diagnosis and treatments explained. To call sooner prior to next visit it any questions/concerns arise. 04/18/2024 BMI 32.0-32.9,adult (ICD-10 - Z68.32) Vanessa is a 47-year-old female who presents the office for weight management f/u. 02/11/2023:252.3, BMI 38.93. Patient extensively educated on lifestyle modifications including high-protein foods, low carbohydrate snacks, healthy fats, sleep hygiene, stress reduction. Patient was provided with educational documentation regarding all of this. Did extensively educate on medications. She is going to talk to her oncologist about some options. In the meantime, we will order hemoglobin A1c, and insulin level. Patient will focus on lifestyle modifications. Looking to lose weight to potentially get cosmetic surgery of her breast secondary to history of breast cancer. 03/16/23: Weight 243.8, BMI 37.62. Patient lost 9 lbs through lifestyle management since last visit. Congratulated patient on effort. Has been following a goal of 17,000 calories, 60 oz of water and 80 grams of protein a day. Starts her mornings off with a walk and exercises at the gym for 45 minutes on both Wednesday and Wednesday. Body composition scan reviewed today show a drop in weight, BMI, fat mass and muscle mass but an increase in visceral adipose tissue and waist circumference. Patient educated on importance of maintaining protein intake and incorporating strength/weight training into weekly routine to prevent further muscle loss. Patient was to discuss with oncologist weight loss medications before initiating but was unable to get an appointment until April 19. Patient instructed to follow with lifestyle management and will follow up after her appointment with oncologist. No medications will be started today. We will get [facility] today. 05/06/2023: Weight 238.1, BMI 36.74. Patient congratulated on effort, continues to lose successful, steady weight with lifestyle modifications only. Encourage patient to continue with lifestyle modifications, but she is interested in potentially trying weight management medication. Did talk to her oncologist, who approved semaglutide. We will start 0.25 mg today. Educated on proper use, side effects. We will follow-up in 4 weeks. If experiencing undesirable side effects, patient will discontinue medication and continue with lifestyle modifications as she is having great success with that at this time. Patient thankful. 06/02/2023: Weight 231.7, BMI 35.75. Patient congratulated on effort, doing well overall, lack of exercise over the past month because she has been sick, treated with antibiotics for UTI/infection. Goal is to increase resistance training over the next month, as well as portion control, otherwise doing well, continue with semaglutide 0.25 mg 08/01/2023: Weight 225.5, BMI 34.79. Patient graduated an effort, continuing to lose slow, steady weight. Educated to continue with lifestyle modifications. Will continue semaglutide 0.5 mg, but will try to send Wegovy 1 mg through health insurance. 09/29/23: Weight 219.8, BMI 33.91. Patient congratulated on effort, losing slow, steady weight. Taking Wegovy 1 mg x 2 weeks, having some nausea, 2 episodes of vomiting, acid reflux, and lack of appetite. Will prescribe Zofran. Also having some concerns in regards to her bone density slightly declining. Educated on the importance of high-protein, resistance training, will cut Wegovy from 1 mg to 0.5 mg. She is aware of the national shortage, and she may have to switch back over to semaglutide 0.5 mg in office pending availability. 01/04/2024: Weight 218, BMI 33.64. Patient having some success with weight loss, body scan reviewed showing mostly fat loss, minimal muscle loss. Will increase Wegovy from 0.5 mg to 1 mg. Following up with my colleague on 02/08, and then with myself on 03/08. 02/08/23: Weight: 213 lb, BMI 32. Continue Wegovy 1 mg subcu weekly. Body composition scale shows muscle loss. Increase protein and consistent resistance training. Discussed importance of life style in conjuction with medication for effectiveness. Follow up with Pallavi Ramirez PA-C on 03/0804/18/2024: Weight 211, BMI 32.63. Patient's weight plateaued since last visit, but she was sick with pneumonia. Skipped 1 week of Wegovy, getting back on it. Requesting refill of Wegovy 1.0, and Zofran. Pleased with progress overall.Focusing on increasing protein. Resistance training 1 time weekly, walking her dog 2 days weekly. #History of breast cancer, in remission. Lymphedema on left side, educated to not take blood pressure on left side. Taking anastrozole 1 mg, BRCA negative.Oncologist states that semaglutide is safe to take with patient history #Restless leg: Taking gabapentin, educated on magnesium glycinate #Hypothyroidism: Taking Synthroid 200 mcg, follows with endocrinology. #Constipation: Educated on conservative treatment such as prune juice, hydration, exercise, as well as MiraLAX as needed etc. Total time spent today was 30 minutes of which greater than 50% was spent on coordinating and counseling Case discussed with collaborating physician Micheal Armstrong who reviewed the assessment and plan. Chart, medications, labs, vital signs reviewed. Dictation was accomplished with the use of [employer] voice recognition software, prone to medical misidentifications and grammatical errors. This is unintentional and the practitioner does try to identify and correct these, but some could still be present. Please do not hesitate to contact practitioner for clarification. All quetsions answered to patients satisfaction. Patient verbalized understanding of diagnosis and treatments explained. To call sooner prior to next visit it any questions/concerns arise. 07/19/2024 BMI 31.0-31.9,adult (ICD-10 - Z68.31) Vanessa is a 49-year-old female who presents the office for weight management f/u. 02/11/2023: 252.3, BMI 38.93. Patient extensively educated on lifestyle modifications including high-protein foods, low carbohydrate snacks, healthy fats, sleep hygiene, stress reduction. Patient was provided with educational documentation regarding all of this. Did extensively educate on medications. She is going to talk to her oncologist about some options. In the meantime, we will order hemoglobin A1c, and insulin level. Patient will focus on lifestyle modifications. Looking to lose weight to potentially get cosmetic surgery of her breast secondary to history of breast cancer. 03/16/23: Weight 243.8, BMI 37.62. Patient lost 9 lbs through lifestyle management since last visit. Congratulated patient on effort. Has been following a goal of 17,000 calories, 60 oz of water and 80 grams of protein a day. Starts her mornings off with a walk and exercises at the gym for 45 minutes on both Wednesday and Wednesday. Body composition scan reviewed today show a drop in weight, BMI, fat mass and muscle mass but an increase in visceral adipose tissue and waist circumference. Patient educated on importance of maintaining protein intake and incorporating strength/weight training into weekly routine to prevent further muscle loss. Patient was to discuss with oncologist weight loss medications before initiating but was unable to get an appointment until April 19. Patient instructed to follow with lifestyle management and will follow up after her appointment with oncologist. No medications will be started today. We will get [facility] today. 05/06/2023: Weight 238.1, BMI 36.74. Patient congratulated on effort, continues to lose successful, steady weight with lifestyle modifications only. Encourage patient to continue with lifestyle modifications, but she is interested in potentially trying weight management medication. Did talk to her oncologist, who approved semaglutide. We will start 0.25 mg today. Educated on proper use, side effects. We will follow-up in 4 weeks. If experiencing undesirable side effects, patient will discontinue medication and continue with lifestyle modifications as she is having great success with that at this time. Patient thankful. 06/02/2023: Weight 231.7, BMI 35.75. Patient congratulated on effort, doing well overall, lack of exercise over the past month because she has been sick, treated with antibiotics for UTI/infection. Goal is to increase resistance training over the next month, as well as portion control, otherwise doing well, continue with semaglutide 0.25 mg 08/01/2023: Weight 225.5, BMI 34.79. Patient graduated an effort, continuing to lose slow, steady weight. Educated to continue with lifestyle modifications. Will continue semaglutide 0.5 mg, but will try to send Wegovy 1 mg through health insurance. 09/29/23: Weight 219.8, BMI 33.91. Patient congratulated on effort, losing slow, steady weight. Taking Wegovy 1 mg x 2 weeks, having some nausea, 2 episodes of vomiting, acid reflux, and lack of appetite. Will prescribe Zofran. Also having some concerns in regards to her bone density slightly declining. Educated on the importance of high-protein, resistance training, will cut Wegovy from 1 mg to 0.5 mg. She is aware of the national shortage, and she may have to switch back over to semaglutide 0.5 mg in office pending availability. 01/04/2024: Weight 218, BMI 33.64. Patient having some success with weight loss, body scan reviewed showing mostly fat loss, minimal muscle loss. Will increase Wegovy from 0.5 mg to 1 mg. Following up with my colleague on 02/08, and then with myself on 03/08. 02/09/24: Weight: 213 lb, BMI 32. Continue Wegovy 1 mg subcu weekly. Body composition scale shows muscle loss. Increase protein and consistent resistance training. Discussed importance of life style in conjuction with medication for effectiveness. Follow up with Pallavi Ramirez PA-C on 03/0804/18/2024: Weight 211, BMI 32.63. Patient's weight plateaued since last visit, but she was sick with pneumonia. Skipped 1 week of Wegovy, getting back on it. Requesting refill of Wegovy 1.0, and Zofran. Pleased with progress overall.Focusing on increasing protein. Resistance training 1 time weekly, walking her dog 2 days weekly. 07/19/2024: Weight 206, BMI 31.78. Patient feels like she has plateau'd on Wegovy 1 mg weekly, though she has not been exercising. Emphasized the importance of high protein diet and resistance training to prevent muscle loss and continue to lose weight. Continue Wegovy 1 mg weekly. Consider increasing to 1.7 mg at next visit. Follow up in 3-4 weeks. #History of breast cancer, in remission. Lymphedema on left side, educated to not take blood pressure on left side. Taking anastrozole 1 mg, BRCA negative.Oncologist states that semaglutide is safe to take with patient history #Restless leg: Taking gabapentin, educated on magnesium glycinate #Hypothyroidism: Taking Synthroid 200 mcg, follows with endocrinology. #Constipation: Educated on conservative treatment such as prune juice, hydration, exercise, as well as MiraLAX as needed etc. Total time spent today was 30 minutes of which greater than 50% was spent on coordinating and counseling Case discussed with collaborating physician Micheal Armstrong who reviewed the assessment and plan. Chart, medications, labs, vital signs reviewed. Dictation was accomplished with the use of [employer] voice recognition software, prone to medical misidentifications and grammatical errors. This is unintentional and the practitioner does try to identify and correct these, but some could still be present. Please do not hesitate to contact practitioner for clarification. All quetsions answered to patients satisfaction. Patient verbalized understanding of diagnosis and treatments explained. To call sooner prior to next visit it any questions/concerns arise. 08/18/2024 BMI 30.0-30.9,adult (ICD-10 - Z68.30) Vanessa is a 49-year-old female who presents the office for weight management f/u. 02/11/2023: 252.3, BMI 38.93. Patient extensively educated on lifestyle modifications including high-protein foods, low carbohydrate snacks, healthy fats, sleep hygiene, stress reduction. Patient was provided with educational documentation regarding all of this. Did extensively educate on medications. She is going to talk to her oncologist about some options. In the meantime, we will order hemoglobin A1c, and insulin level. Patient will focus on lifestyle modifications. Looking to lose weight to potentially get cosmetic surgery of her breast secondary to history of breast cancer. 03/16/23: Weight 243.8, BMI 37.62. Patient lost 9 lbs through lifestyle management since last visit. Congratulated patient on effort. Has been following a goal of 17,000 calories, 60 oz of water and 80 grams of protein a day. Starts her mornings off with a walk and exercises at the gym for 45 minutes on both Wednesday and Wednesday. Body composition scan reviewed today show a drop in weight, BMI, fat mass and muscle mass but an increase in visceral adipose tissue and waist circumference. Patient educated on importance of maintaining protein intake and incorporating strength/weight training into weekly routine to prevent further muscle loss. Patient was to discuss with oncologist weight loss medications before initiating but was unable to get an appointment until April 19. Patient instructed to follow with lifestyle management and will follow up after her appointment with oncologist. No medications will be started today. We will get [facility] today. 05/06/2023: Weight 238.1, BMI 36.74. Patient congratulated on effort, continues to lose successful, steady weight with lifestyle modifications only. Encourage patient to continue with lifestyle modifications, but she is interested in potentially trying weight management medication. Did talk to her oncologist, who approved semaglutide. We will start 0.25 mg today. Educated on proper use, side effects. We will follow-up in 4 weeks. If experiencing undesirable side effects, patient will discontinue medication and continue with lifestyle modifications as she is having great success with that at this time. Patient thankful. 06/02/2023: Weight 231.7, BMI 35.75. Patient congratulated on effort, doing well overall, lack of exercise over the past month because she has been sick, treated with antibiotics for UTI/infection. Goal is to increase resistance training over the next month, as well as portion control, otherwise doing well, continue with semaglutide 0.25 mg 08/01/2023: Weight 225.5, BMI 34.79. Patient graduated an effort, continuing to lose slow, steady weight. Educated to continue with lifestyle modifications. Will continue semaglutide 0.5 mg, but will try to send Wegovy 1 mg through health insurance. 09/29/23: Weight 219.8, BMI 33.91. Patient congratulated on effort, losing slow, steady weight. Taking Wegovy 1 mg x 2 weeks, having some nausea, 2 episodes of vomiting, acid reflux, and lack of appetite. Will prescribe Zofran. Also having some concerns in regards to her bone density slightly declining. Educated on the importance of high-protein, resistance training, will cut Wegovy from 1 mg to 0.5 mg. She is aware of the national shortage, and she may have to switch back over to semaglutide 0.5 mg in office pending availability. 01/04/2024: Weight 218, BMI 33.64. Patient having some success with weight loss, body scan reviewed showing mostly fat loss, minimal muscle loss. Will increase Wegovy from 0.5 mg to 1 mg. Following up with my colleague on 02/08, and then with myself on 03/08. 02/09/24: Weight: 213 lb, BMI 32. Continue Wegovy 1 mg subcu weekly. Body composition scale shows muscle loss. Increase protein and consistent resistance training. Discussed importance of life style in conjuction with medication for effectiveness. Follow up with Pallavi Ramirez PA-C on 03/0804/18/2024: Weight 211, BMI 32.63. Patient's weight plateaued since last visit, but she was sick with pneumonia. Skipped 1 week of Wegovy, getting back on it. Requesting refill of Wegovy 1.0, and Zofran. Pleased with progress overall.Focusing on increasing protein. Resistance training 1 time weekly, walking her dog 2 days weekly. 07/19/2024: Weight 206, BMI 31.78. Patient feels like she has plateau'd on Wegovy 1 mg weekly, though she has not been exercising. Emphasized the importance of high protein diet and resistance training to prevent muscle loss and continue to lose weight. Continue Wegovy 1 mg weekly. Consider increasing to 1.7 mg at next visit. Follow up in 3-4 weeks. 08/18/2024: Weight 199, BMI 30. Patient congratulated on effort. Did have a norovirus last week, so diarrhea/vomiting but this is all resolved. She is very pleased that she officially is less than 200 pounds. Will continue with Wegovy 1 mg, follow-up in 6 weeks. Patient focusing on increasing protein and resistance training. Schedule for mammogram and bone density in 4 weeks.Scheduled for colonoscopy September 2024 #History of breast cancer, in remission. Lymphedema on left side, educated to not take blood pressure on left side. Taking anastrozole 1 mg, BRCA negative.Oncologist states that semaglutide is safe to take with patient history #Restless leg: Taking gabapentin, educated on magnesium glycinate #Hypothyroidism: Taking Synthroid 200 mcg, follows with endocrinology. #Constipation: Educated on conservative treatment such as prune juice, hydration, exercise, as well as MiraLAX as needed etc. Total time spent today was 30 minutes of which greater than 50% was spent on coordinating and counseling Case discussed with collaborating physician Micheal Armstrong who reviewed the assessment and plan. Chart, medications, labs, vital signs reviewed. Dictation was accomplished with the use of [employer] voice recognition software, prone to medical misidentifications and grammatical errors. This is unintentional and the practitioner does try to identify and correct these, but some could still be present. Please do not hesitate to contact practitioner for clarification. All quetsions answered to patients satisfaction. Patient verbalized understanding of diagnosis and treatments explained. To call sooner prior to next visit it any questions/concerns arise. 09/28/2024 BMI 31.0-31.9,adult (ICD-10 - Z68.31) Vanessa is a 49-year-old female who presents the office for weight management f/u. 02/11/2023: 252.3, BMI 38.93. Patient extensively educated on lifestyle modifications including high-protein foods, low carbohydrate snacks, healthy fats, sleep hygiene, stress reduction. Patient was provided with educational documentation regarding all of this. Did extensively educate on medications. She is going to talk to her oncologist about some options. In the meantime, we will order hemoglobin A1c, and insulin level. Patient will focus on lifestyle modifications. Looking to lose weight to potentially get cosmetic surgery of her breast secondary to history of breast cancer. 03/16/23: Weight 243.8, BMI 37.62. Patient lost 9 lbs through lifestyle management since last visit. Congratulated patient on effort. Has been following a goal of 17,000 calories, 60 oz of water and 80 grams of protein a day. Starts her mornings off with a walk and exercises at the gym for 45 minutes on both Wednesday and Wednesday. Body composition scan reviewed today show a drop in weight, BMI, fat mass and muscle mass but an increase in visceral adipose tissue and waist circumference. Patient educated on importance of maintaining protein intake and incorporating strength/weight training into weekly routine to prevent further muscle loss. Patient was to discuss with oncologist weight loss medications before initiating but was unable to get an appointment until April 19. Patient instructed to follow with lifestyle management and will follow up after her appointment with oncologist. No medications will be started today. We will get [facility] today. 05/06/2023: Weight 238.1, BMI 36.74. Patient congratulated on effort, continues to lose successful, steady weight with lifestyle modifications only. Encourage patient to continue with lifestyle modifications, but she is interested in potentially trying weight management medication. Did talk to her oncologist, who approved semaglutide. We will start 0.25 mg today. Educated on proper use, side effects. We will follow-up in 4 weeks. If experiencing undesirable side effects, patient will discontinue medication and continue with lifestyle modifications as she is having great success with that at this time. Patient thankful. 06/02/2023: Weight 231.7, BMI 35.75. Patient congratulated on effort, doing well overall, lack of exercise over the past month because she has been sick, treated with antibiotics for UTI/infection. Goal is to increase resistance training over the next month, as well as portion control, otherwise doing well, continue with semaglutide 0.25 mg 08/01/2023: Weight 225.5, BMI 34.79. Patient graduated an effort, continuing to lose slow, steady weight. Educated to continue with lifestyle modifications. Will continue semaglutide 0.5 mg, but will try to send Wegovy 1 mg through health insurance. 09/29/23: Weight 219.8, BMI 33.91. Patient congratulated on effort, losing slow, steady weight. Taking Wegovy 1 mg x 2 weeks, having some nausea, 2 episodes of vomiting, acid reflux, and lack of appetite. Will prescribe Zofran. Also having some concerns in regards to her bone density slightly declining. Educated on the importance of high-protein, resistance training, will cut Wegovy from 1 mg to 0.5 mg. She is aware of the national shortage, and she may have to switch back over to semaglutide 0.5 mg in office pending availability. 01/04/2024: Weight 218, BMI 33.64. Patient having some success with weight loss, body scan reviewed showing mostly fat loss, minimal muscle loss. Will increase Wegovy from 0.5 mg to 1 mg. Following up with my colleague on 02/08, and then with myself on 03/08. 02/09/24: Weight: 213 lb, BMI 32. Continue Wegovy 1 mg subcu weekly. Body composition scale shows muscle loss. Increase protein and consistent resistance training. Discussed importance of life style in conjuction with medication for effectiveness. Follow up with Pallavi Ramirez PA-C on 03/0804/18/2024: Weight 211, BMI 32.63. Patient's weight plateaued since last visit, but she was sick with pneumonia. Skipped 1 week of Wegovy, getting back on it. Requesting refill of Wegovy 1.0, and Zofran. Pleased with progress overall.Focusing on increasing protein. Resistance training 1 time weekly, walking her dog 2 days weekly. 07/19/2024: Weight 206, BMI 31.78. Patient feels like she has plateau'd on Wegovy 1 mg weekly, though she has not been exercising. Emphasized the importance of high protein diet and resistance training to prevent muscle loss and continue to lose weight. Continue Wegovy 1 mg weekly. Consider increasing to 1.7 mg at next visit. Follow up in 3-4 weeks. 08/18/2024: Weight 199, BMI 30. Patient congratulated on effort. Did have a norovirus last week, so diarrhea/vomiting but this is all resolved. She is very pleased that she officially is less than 200 pounds. Will continue with Wegovy 1 mg, follow-up in 6 weeks. Patient focusing on increasing protein and resistance training. 09/28/24: Weight 203, BMI 31. Will increase Wegovy to 1.7 mg. Discussed lifestyle modifications Schedule for mammogram and bone density in 4 weeks.Scheduled for colonoscopy September 2024 #History of breast cancer, in remission. Lymphedema on left side, educated to not take blood pressure on left side. Taking anastrozole 1 mg, BRCA negative.Oncologist states that semaglutide is safe to take with patient history #Restless leg: Taking gabapentin, educated on magnesium glycinate #Hypothyroidism: Taking Synthroid 200 mcg, follows with endocrinology. #Constipation: Educated on conservative treatment such as prune juice, hydration, exercise, as well as MiraLAX as needed etc. Total time spent today was 30 minutes of which greater than 50% was spent on coordinating and counseling Case discussed with collaborating physician Micheal Armstrong who reviewed the assessment and plan. Chart, medications, labs, vital signs reviewed. Dictation was accomplished with the use of [employer] voice recognition software, prone to medical misidentifications and grammatical errors. This is unintentional and the practitioner does try to identify and correct these, but some could still be present. Please do not hesitate to contact practitioner for clarification. All quetsions answered to patients satisfaction. Patient verbalized understanding of diagnosis and treatments explained. To call sooner prior to next visit it any questions/concerns arise. 11/07/2024 BMI 31.0-31.9,adult (ICD-10 - Z68.31) Vanessa is a 49-year-old female who presents the office for weight management f/u. 02/11/2023: 252.3, BMI 38.93. Patient extensively educated on lifestyle modifications including high-protein foods, low carbohydrate snacks, healthy fats, sleep hygiene, stress reduction. Patient was provided with educational documentation regarding all of this. Did extensively educate on medications. She is going to talk to her oncologist about some options. In the meantime, we will order hemoglobin A1c, and insulin level. Patient will focus on lifestyle modifications. Looking to lose weight to potentially get cosmetic surgery of her breast secondary to history of breast cancer. 03/16/23: Weight 243.8, BMI 37.62. Patient lost 9 lbs through lifestyle management since last visit. Congratulated patient on effort. Has been following a goal of 17,000 calories, 60 oz of water and 80 grams of protein a day. Starts her mornings off with a walk and exercises at the gym for 45 minutes on both Wednesday and Wednesday. Body composition scan reviewed today show a drop in weight, BMI, fat mass and muscle mass but an increase in visceral adipose tissue and waist circumference. Patient educated on importance of maintaining protein intake and incorporating strength/weight training into weekly routine to prevent further muscle loss. Patient was to discuss with oncologist weight loss medications before initiating but was unable to get an appointment until April 19. Patient instructed to follow with lifestyle management and will follow up after her appointment with oncologist. No medications will be started today. We will get [facility] today. 05/06/2023: Weight 238.1, BMI 36.74. Patient congratulated on effort, continues to lose successful, steady weight with lifestyle modifications only. Encourage patient to continue with lifestyle modifications, but she is interested in potentially trying weight management medication. Did talk to her oncologist, who approved semaglutide. We will start 0.25 mg today. Educated on proper use, side effects. We will follow-up in 4 weeks. If experiencing undesirable side effects, patient will discontinue medication and continue with lifestyle modifications as she is having great success with that at this time. Patient thankful. 06/02/2023: Weight 231.7, BMI 35.75. Patient congratulated on effort, doing well overall, lack of exercise over the past month because she has been sick, treated with antibiotics for UTI/infection. Goal is to increase resistance training over the next month, as well as portion control, otherwise doing well, continue with semaglutide 0.25 mg 08/01/2023: Weight 225.5, BMI 34.79. Patient graduated an effort, continuing to lose slow, steady weight. Educated to continue with lifestyle modifications. Will continue semaglutide 0.5 mg, but will try to send Wegovy 1 mg through health insurance. 09/29/23: Weight 219.8, BMI 33.91. Patient congratulated on effort, losing slow, steady weight. Taking Wegovy 1 mg x 2 weeks, having some nausea, 2 episodes of vomiting, acid reflux, and lack of appetite. Will prescribe Zofran. Also having some concerns in regards to her bone density slightly declining. Educated on the importance of high-protein, resistance training, will cut Wegovy from 1 mg to 0.5 mg. She is aware of the national shortage, and she may have to switch back over to semaglutide 0.5 mg in office pending availability. 01/04/2024: Weight 218, BMI 33.64. Patient having some success with weight loss, body scan reviewed showing mostly fat loss, minimal muscle loss. Will increase Wegovy from 0.5 mg to 1 mg. Following up with my colleague on 02/08, and then with myself on 03/08. 02/09/24: Weight: 213 lb, BMI 32. Continue Wegovy 1 mg subcu weekly. Body composition scale shows muscle loss. Increase protein and consistent resistance training. Discussed importance of life style in conjuction with medication for effectiveness. Follow up with Pallavi Ramirez PA-C on 03/0804/18/2024: Weight 211, BMI 32.63. Patient's weight plateaued since last visit, but she was sick with pneumonia. Skipped 1 week of Wegovy, getting back on it. Requesting refill of Wegovy 1.0, and Zofran. Pleased with progress overall.Focusing on increasing protein. Resistance training 1 time weekly, walking her dog 2 days weekly. 07/19/2024: Weight 206, BMI 31.78. Patient feels like she has plateau'd on Wegovy 1 mg weekly, though she has not been exercising. Emphasized the importance of high protein diet and resistance training to prevent muscle loss and continue to lose weight. Continue Wegovy 1 mg weekly. Consider increasing to 1.7 mg at next visit. Follow up in 3-4 weeks. 08/18/2024: Weight 199, BMI 30. Patient congratulated on effort. Did have a norovirus last week, so diarrhea/vomiting but this is all resolved. She is very pleased that she officially is less than 200 pounds. Will continue with Wegovy 1 mg, follow-up in 6 weeks. Patient focusing on increasing protein and resistance training. 09/28/24: Weight 203, BMI 31. Will increase Wegovy to 1.7 mg. Discussed lifestyle modifications 11/07/2024: Weight 200.9, BMI 31. Congratulated on effort. She has lost fat mass and visceral adipose tissue while increasing muscle mass since last visit. Continue Wegovy 1.7 mg weekly. Continue lifestyle modifications. Follow-up in 6 weeks. Schedule for mammogram and bone density in 4 weeks.Scheduled for colonoscopy September 2024 #History of breast cancer, in remission. Lymphedema on left side, educated to not take blood pressure on left side. Taking anastrozole 1 mg, BRCA negative.Oncologist states that semaglutide is safe to take with patient history #Restless leg: Taking gabapentin, educated on magnesium glycinate #Hypothyroidism: Taking Synthroid 200 mcg, follows with endocrinology. #Constipation: Educated on conservative treatment such as prune juice, hydration, exercise, as well as MiraLAX as needed etc. Total time spent today was 30 minutes of which greater than 50% was spent on coordinating and counseling Case discussed with collaborating physician Micheal Armstrong who reviewed the assessment and plan. Chart, medications, labs, vital signs reviewed. Dictation was accomplished with the use of [employer] voice recognition software, prone to medical misidentifications and grammatical errors. This is unintentional and the practitioner does try to identify and correct these, but some could still be present. Please do not hesitate to contact practitioner for clarification. All quetsions answered to patients satisfaction. Patient verbalized understanding of diagnosis and treatments explained. To call sooner prior to next visit it any questions/concerns arise. 12/19/2024 BMI 30.0-30.9,adult (ICD-10 - Z68.30) Vanessa is a 49-year-old female who presents the office for weight management f/u. 02/11/2023: 252.3, BMI 38.93. Patient extensively educated on lifestyle modifications including high-protein foods, low carbohydrate snacks, healthy fats, sleep hygiene, stress reduction. Patient was provided with educational documentation regarding all of this. Did extensively educate on medications. She is going to talk to her oncologist about some options. In the meantime, we will order hemoglobin A1c, and insulin level. Patient will focus on lifestyle modifications. Looking to lose weight to potentially get cosmetic surgery of her breast secondary to history of breast cancer. 03/16/23: Weight 243.8, BMI 37.62. Patient lost 9 lbs through lifestyle management since last visit. Congratulated patient on effort. Has been following a goal of 17,000 calories, 60 oz of water and 80 grams of protein a day. Starts her mornings off with a walk and exercises at the gym for 45 minutes on both Wednesday and Wednesday. Body composition scan reviewed today show a drop in weight, BMI, fat mass and muscle mass but an increase in visceral adipose tissue and waist circumference. Patient educated on importance of maintaining protein intake and incorporating strength/weight training into weekly routine to prevent further muscle loss. Patient was to discuss with oncologist weight loss medications before initiating but was unable to get an appointment until April 19. Patient instructed to follow with lifestyle management and will follow up after her appointment with oncologist. No medications will be started today. We will get [facility] today. 05/06/2023: Weight 238.1, BMI 36.74. Patient congratulated on effort, continues to lose successful, steady weight with lifestyle modifications only. Encourage patient to continue with lifestyle modifications, but she is interested in potentially trying weight management medication. Did talk to her oncologist, who approved semaglutide. We will start 0.25 mg today. Educated on proper use, side effects. We will follow-up in 4 weeks. If experiencing undesirable side effects, patient will discontinue medication and continue with lifestyle modifications as she is having great success with that at this time. Patient thankful. 06/02/2023: Weight 231.7, BMI 35.75. Patient congratulated on effort, doing well overall, lack of exercise over the past month because she has been sick, treated with antibiotics for UTI/infection. Goal is to increase resistance training over the next month, as well as portion control, otherwise doing well, continue with semaglutide 0.25 mg 08/01/2023: Weight 225.5, BMI 34.79. Patient graduated an effort, continuing to lose slow, steady weight. Educated to continue with lifestyle modifications. Will continue semaglutide 0.5 mg, but will try to send Wegovy 1 mg through health insurance. 09/29/23: Weight 219.8, BMI 33.91. Patient congratulated on effort, losing slow, steady weight. Taking Wegovy 1 mg x 2 weeks, having some nausea, 2 episodes of vomiting, acid reflux, and lack of appetite. Will prescribe Zofran. Also having some concerns in regards to her bone density slightly declining. Educated on the importance of high-protein, resistance training, will cut Wegovy from 1 mg to 0.5 mg. She is aware of the national shortage, and she may have to switch back over to semaglutide 0.5 mg in office pending availability. 01/04/2024: Weight 218, BMI 33.64. Patient having some success with weight loss, body scan reviewed showing mostly fat loss, minimal muscle loss. Will increase Wegovy from 0.5 mg to 1 mg. Following up with my colleague on 02/08, and then with myself on 03/08. 02/09/24: Weight: 213 lb, BMI 32. Continue Wegovy 1 mg subcu weekly. Body composition scale shows muscle loss. Increase protein and consistent resistance training. Discussed importance of life style in conjuction with medication for effectiveness. Follow up with Pallavi Ramirez PA-C on 03/0804/18/2024: Weight 211, BMI 32.63. Patient's weight plateaued since last visit, but she was sick with pneumonia. Skipped 1 week of Wegovy, getting back on it. Requesting refill of Wegovy 1.0, and Zofran. Pleased with progress overall.Focusing on increasing protein. Resistance training 1 time weekly, walking her dog 2 days weekly. 07/19/2024: Weight 206, BMI 31.78. Patient feels like she has plateau'd on Wegovy 1 mg weekly, though she has not been exercising. Emphasized the importance of high protein diet and resistance training to prevent muscle loss and continue to lose weight. Continue Wegovy 1 mg weekly. Consider increasing to 1.7 mg at next visit. Follow up in 3-4 weeks. 08/18/2024: Weight 199, BMI 30. Patient congratulated on effort. Did have a norovirus last week, so diarrhea/vomiting but this is all resolved. She is very pleased that she officially is less than 200 pounds. Will continue with Wegovy 1 mg, follow-up in 6 weeks. Patient focusing on increasing protein and resistance training. 09/28/24: Weight 203, BMI 31. Will increase Wegovy to 1.7 mg. Discussed lifestyle modifications 11/07/2024: Weight 200.9, BMI 31. Congratulated on effort. She has lost fat mass and visceral adipose tissue while increasing muscle mass since last visit. Continue Wegovy 1.7 mg weekly. Continue lifestyle modifications. Follow-up in 6 weeks. 12/15/2024: Weight 194, BMI 30. Continuing to lose slow, steady weight but having nausea, and sometimes vomiting as a side effect of Wegovy 1.7 mg although she was at a plateau taking Wegovy 1 mg. Patient interested in switching to Zepbound. Will submit 2.5 mg of Zepbound to the pharmacy. Discussed proper use, side effects, insurance coverage, and prior authorization process.Scheduled for colonoscopy this Wednesday, therefore is holding off on GLP-1 at this time. #History of breast cancer, in remission. Lymphedema on left side, educated to not take blood pressure on left side. Taking anastrozole 1 mg, BRCA negative.Oncologist states that semaglutide is safe to take with patient history #Restless leg: Taking gabapentin, educated on magnesium glycinate #Hypothyroidism: Taking Synthroid 200 mcg, follows with endocrinology. #Constipation: Educated on conservative treatment such as prune juice, hydration, exercise, as well as MiraLAX as needed etc. Total time spent today was 30 minutes of which greater than 50% was spent on coordinating and counseling Case discussed with collaborating physician Micheal Armstorng who reviewed the assessment and plan. Chart, medications, labs, vital signs reviewed. Dictation was accomplished with the use of [employer] voice recognition software, prone to medical misidentifications and grammatical errors. This is unintentional and the practitioner does try to identify and correct these, but some could still be present. Please do not hesitate to contact practitioner for clarification. All quetsions answered to patients satisfaction. Patient verbalized understanding of diagnosis and treatments explained. To call sooner prior to next visit it any questions/concerns arise. 01/16/2025 Obesity (BMI 30-39.9) (ICD-10 - E66.9) 02/12/2025 BMI 30.0-30.9,adult (ICD-10 - Z68.30) Vanessa is a 49-year-old female who presents the office for weight management f/u. 02/11/2023: 252.3, BMI 38.93. Patient extensively educated on lifestyle modifications including high-protein foods, low carbohydrate snacks, healthy fats, sleep hygiene, stress reduction. Patient was provided with educational documentation regarding all of this. Did extensively educate on medications. She is going to talk to her oncologist about some options. In the meantime, we will order hemoglobin A1c, and insulin level. Patient will focus on lifestyle modifications. Looking to lose weight to potentially get cosmetic surgery of her breast secondary to history of breast cancer. 03/16/23: Weight 243.8, BMI 37.62. Patient lost 9 lbs through lifestyle management since last visit. Congratulated patient on effort. Has been following a goal of 17,000 calories, 60 oz of water and 80 grams of protein a day. Starts her mornings off with a walk and exercises at the gym for 45 minutes on both Wednesday and Wednesday. Body composition scan reviewed today show a drop in weight, BMI, fat mass and muscle mass but an increase in visceral adipose tissue and waist circumference. Patient educated on importance of maintaining protein intake and incorporating strength/weight training into weekly routine to prevent further muscle loss. Patient was to discuss with oncologist weight loss medications before initiating but was unable to get an appointment until April 19. Patient instructed to follow with lifestyle management and will follow up after her appointment with oncologist. No medications will be started today. We will get [facility] today. 05/06/2023: Weight 238.1, BMI 36.74. Patient congratulated on effort, continues to lose successful, steady weight with lifestyle modifications only. Encourage patient to continue with lifestyle modifications, but she is interested in potentially trying weight management medication. Did talk to her oncologist, who approved semaglutide. We will start 0.25 mg today. Educated on proper use, side effects. We will follow-up in 4 weeks. If experiencing undesirable side effects, patient will discontinue medication and continue with lifestyle modifications as she is having great success with that at this time. Patient thankful. 06/02/2023: Weight 231.7, BMI 35.75. Patient congratulated on effort, doing well overall, lack of exercise over the past month because she has been sick, treated with antibiotics for UTI/infection. Goal is to increase resistance training over the next month, as well as portion control, otherwise doing well, continue with semaglutide 0.25 mg 08/01/2023: Weight 225.5, BMI 34.79. Patient graduated an effort, continuing to lose slow, steady weight. Educated to continue with lifestyle modifications. Will continue semaglutide 0.5 mg, but will try to send Wegovy 1 mg through health insurance. 4/3/24: Weight 219.8, BMI 33.91. Patient congratulated on effort, losing slow, steady weight. Taking Wegovy 1 mg x 2 weeks, having some nausea, 2 episodes of vomiting, acid reflux, and lack of appetite. Will prescribe Zofran. Also having some concerns in regards to her bone density slightly declining. Educated on the importance of high-protein, resistance training, will cut Wegovy from 1 mg to 0.5 mg. She is aware of the national shortage, and she may have to switch back over to semaglutide 0.5 mg in office pending availability. 01/04/2024: Weight 218, BMI 33.64. Patient having some success with weight loss, body scan reviewed showing mostly fat loss, minimal muscle loss. Will increase Wegovy from 0.5 mg to 1 mg. Following up with my colleague on 02/08, and then with myself on 03/08. 02/09/24: Weight: 213 lb, BMI 32. Continue Wegovy 1 mg subcu weekly. Body composition scale shows muscle loss. Increase protein and consistent resistance training. Discussed importance of life style in conjuction with medication for effectiveness. Follow up with Pallavi Ramirez PA-C on 03/0804/18/2024: Weight 211, BMI 32.63. Patient's weight plateaued since last visit, but she was sick with pneumonia. Skipped 1 week of Wegovy, getting back on it. Requesting refill of Wegovy 1.0, and Zofran. Pleased with progress overall.Focusing on increasing protein. Resistance training 1 time weekly, walking her dog 2 days weekly. 07/19/2024: Weight 206, BMI 31.78. Patient feels like she has plateau'd on Wegovy 1 mg weekly, though she has not been exercising. Emphasized the importance of high protein diet and resistance training to prevent muscle loss and continue to lose weight. Continue Wegovy 1 mg weekly. Consider increasing to 1.7 mg at next visit. Follow up in 3-4 weeks. 08/18/2024: Weight 199, BMI 30. Patient congratulated on effort. Did have a norovirus last week, so diarrhea/vomiting but this is all resolved. She is very pleased that she officially is less than 200 pounds. Will continue with Wegovy 1 mg, follow-up in 6 weeks. Patient focusing on increasing protein and resistance training. 09/28/24: Weight 203, BMI 31. Will increase Wegovy to 1.7 mg. Discussed lifestyle modifications 11/07/2024: Weight 200.9, BMI 31. Congratulated on effort. She has lost fat mass and visceral adipose tissue while increasing muscle mass since last visit. Continue Wegovy 1.7 mg weekly. Continue lifestyle modifications. Follow-up in 6 weeks. 12/15/2024: Weight 194, BMI 30. Continuing to lose slow, steady weight but having nausea, and sometimes vomiting as a side effect of Wegovy 1.7 mg although she was at a plateau taking Wegovy 1 mg. Patient interested in switching to Zepbound. Will submit 2.5 mg of Zepbound to the pharmacy. Discussed proper use, side effects, insurance coverage, and prior authorization process.Scheduled for colonoscopy this Wednesday, therefore is holding off on GLP-1 at this time. 02/12/2025: Weight 200, BMI 30. Gained weight since last visit but in reviewing body scan, has maintained fat, and gained muscle. Continuing with high-protein. Patient is doing well with muscle gain. Increase Zepbound to 7.5 mg after she finishes her last 2 pens of Zepbound 5 mg. #History of breast cancer, in remission. Lymphedema on left side, educated to not take blood pressure on left side. Taking anastrozole 1 mg, BRCA negative.Oncologist states that semaglutide is safe to take with patient history #Restless leg: Taking gabapentin, educated on magnesium glycinate #Hypothyroidism: Taking Synthroid 200 mcg, follows with endocrinology. #Constipation: Educated on conservative treatment such as prune juice, hydration, exercise, as well as MiraLAX as needed etc. Total time spent today was 30 minutes of which greater than 50% was spent on coordinating and counseling Case discussed with collaborating physician Micheal Armstrong who reviewed the assessment and plan. Chart, medications, labs, vital signs reviewed. Dictation was accomplished with the use of [employer] voice recognition software, prone to medical misidentifications and grammatical errors. This is unintentional and the practitioner does try to identify and correct these, but some could still be present. Please do not hesitate to contact practitioner for clarification. All quetsions answered to patients satisfaction. Patient verbalized understanding of diagnosis and treatments explained. To call sooner prior to next visit it any questions/concerns arise. 02/12/2025 Nutritional counseling (ICD-10 - Z71.3) Vanessa is a 49-year-old female who presents the office for weight management f/u. 02/11/2023: 252.3, BMI 38.93. Patient extensively educated on lifestyle modifications including high-protein foods, low carbohydrate snacks, healthy fats, sleep hygiene, stress reduction. Patient was provided with educational documentation regarding all of this. Did extensively educate on medications. She is going to talk to her oncologist about some options. In the meantime, we will order hemoglobin A1c, and insulin level. Patient will focus on lifestyle modifications. Looking to lose weight to potentially get cosmetic surgery of her breast secondary to history of breast cancer. 03/16/23: Weight 243.8, BMI 37.62. Patient lost 9 lbs through lifestyle management since last visit. Congratulated patient on effort. Has been following a goal of 17,000 calories, 60 oz of water and 80 grams of protein a day. Starts her mornings off with a walk and exercises at the gym for 45 minutes on both Wednesday and Wednesday. Body composition scan reviewed today show a drop in weight, BMI, fat mass and muscle mass but an increase in visceral adipose tissue and waist circumference. Patient educated on importance of maintaining protein intake and incorporating strength/weight training into weekly routine to prevent further muscle loss. Patient was to discuss with oncologist weight loss medications before initiating but was unable to get an appointment until April 19. Patient instructed to follow with lifestyle management and will follow up after her appointment with oncologist. No medications will be started today. We will get [facility] today. 05/06/2023: Weight 238.1, BMI 36.74. Patient congratulated on effort, continues to lose successful, steady weight with lifestyle modifications only. Encourage patient to continue with lifestyle modifications, but she is interested in potentially trying weight management medication. Did talk to her oncologist, who approved semaglutide. We will start 0.25 mg today. Educated on proper use, side effects. We will follow-up in 4 weeks. If experiencing undesirable side effects, patient will discontinue medication and continue with lifestyle modifications as she is having great success with that at this time. Patient thankful. 06/02/2023: Weight 231.7, BMI 35.75. Patient congratulated on effort, doing well overall, lack of exercise over the past month because she has been sick, treated with antibiotics for UTI/infection. Goal is to increase resistance training over the next month, as well as portion control, otherwise doing well, continue with semaglutide 0.25 mg 08/01/2023: Weight 225.5, BMI 34.79. Patient graduated an effort, continuing to lose slow, steady weight. Educated to continue with lifestyle modifications. Will continue semaglutide 0.5 mg, but will try to send Wegovy 1 mg through health insurance. 09/29/23: Weight 219.8, BMI 33.91. Patient congratulated on effort, losing slow, steady weight. Taking Wegovy 1 mg x 2 weeks, having some nausea, 2 episodes of vomiting, acid reflux, and lack of appetite. Will prescribe Zofran. Also having some concerns in regards to her bone density slightly declining. Educated on the importance of high-protein, resistance training, will cut Wegovy from 1 mg to 0.5 mg. She is aware of the national shortage, and she may have to switch back over to semaglutide 0.5 mg in office pending availability. 01/04/2024: Weight 218, BMI 33.64. Patient having some success with weight loss, body scan reviewed showing mostly fat loss, minimal muscle loss. Will increase Wegovy from 0.5 mg to 1 mg. Following up with my colleague on 02/08, and then with myself on 03/08. 02/09/24: Weight: 213 lb, BMI 32. Continue Wegovy 1 mg subcu weekly. Body composition scale shows muscle loss. Increase protein and consistent resistance training. Discussed importance of life style in conjuction with medication for effectiveness. Follow up with Pallavi Ramirez PA-C on 03/0804/18/2024: Weight 211, BMI 32.63. Patient's weight plateaued since last visit, but she was sick with pneumonia. Skipped 1 week of Wegovy, getting back on it. Requesting refill of Wegovy 1.0, and Zofran. Pleased with progress overall.Focusing on increasing protein. Resistance training 1 time weekly, walking her dog 2 days weekly. 07/19/2024: Weight 206, BMI 31.78. Patient feels like she has plateau'd on Wegovy 1 mg weekly, though she has not been exercising. Emphasized the importance of high protein diet and resistance training to prevent muscle loss and continue to lose weight. Continue Wegovy 1 mg weekly. Consider increasing to 1.7 mg at next visit. Follow up in 3-4 weeks. 08/18/2024: Weight 199, BMI 30. Patient congratulated on effort. Did have a norovirus last week, so diarrhea/vomiting but this is all resolved. She is very pleased that she officially is less than 200 pounds. Will continue with Wegovy 1 mg, follow-up in 6 weeks. Patient focusing on increasing protein and resistance training. 09/28/24: Weight 203, BMI 31. Will increase Wegovy to 1.7 mg. Discussed lifestyle modifications 11/07/2024: Weight 200.9, BMI 31. Congratulated on effort. She has lost fat mass and visceral adipose tissue while increasing muscle mass since last visit. Continue Wegovy 1.7 mg weekly. Continue lifestyle modifications. Follow-up in 6 weeks. 12/15/2024: Weight 194, BMI 30. Continuing to lose slow, steady weight but having nausea, and sometimes vomiting as a side effect of Wegovy 1.7 mg although she was at a plateau taking Wegovy 1 mg. Patient interested in switching to Zepbound. Will submit 2.5 mg of Zepbound to the pharmacy. Discussed proper use, side effects, insurance coverage, and prior authorization process.Scheduled for colonoscopy this Wednesday, therefore is holding off on GLP-1 at this time. 02/12/2025: Weight 200, BMI 30. Gained weight since last visit but in reviewing body scan, has maintained fat, and gained muscle. Continuing with high-protein. Patient is doing well with muscle gain. Increase Zepbound to 7.5 mg after she finishes her last 2 pens of Zepbound 5 mg. #History of breast cancer, in remission. Lymphedema on left side, educated to not take blood pressure on left side. Taking anastrozole 1 mg, BRCA negative.Oncologist states that semaglutide is safe to take with patient history #Restless leg: Taking gabapentin, educated on magnesium glycinate #Hypothyroidism: Taking Synthroid 200 mcg, follows with endocrinology. #Constipation: Educated on conservative treatment such as prune juice, hydration, exercise, as well as MiraLAX as needed etc. Total time spent today was 30 minutes of which greater than 50% was spent on coordinating and counseling Case discussed with collaborating physician Micheal Armstrong who reviewed the assessment and plan. Chart, medications, labs, vital signs reviewed. Dictation was accomplished with the use of [employer] voice recognition software, prone to medical misidentifications and grammatical errors. This is unintentional and the practitioner does try to identify and correct these, but some could still be present. Please do not hesitate to contact practitioner for clarification. All quetsions answered to patients satisfaction. Patient verbalized understanding of diagnosis and treatments explained. To call sooner prior to next visit it any questions/concerns arise. 12/19/2024 Nutritional counseling (ICD-10 - Z71.3) Vanessa is a 49-year-old female who presents the office for weight management f/u. 02/11/2023: 252.3, BMI 38.93. Patient extensively educated on lifestyle modifications including high-protein foods, low carbohydrate snacks, healthy fats, sleep hygiene, stress reduction. Patient was provided with educational documentation regarding all of this. Did extensively educate on medications. She is going to talk to her oncologist about some options. In the meantime, we will order hemoglobin A1c, and insulin level. Patient will focus on lifestyle modifications. Looking to lose weight to potentially get cosmetic surgery of her breast secondary to history of breast cancer. 03/16/23: Weight 243.8, BMI 37.62. Patient lost 9 lbs through lifestyle management since last visit. Congratulated patient on effort. Has been following a goal of 17,000 calories, 60 oz of water and 80 grams of protein a day. Starts her mornings off with a walk and exercises at the gym for 45 minutes on both Wednesday and Wednesday. Body composition scan reviewed today show a drop in weight, BMI, fat mass and muscle mass but an increase in visceral adipose tissue and waist circumference. Patient educated on importance of maintaining protein intake and incorporating strength/weight training into weekly routine to prevent further muscle loss. Patient was to discuss with oncologist weight loss medications before initiating but was unable to get an appointment until April 19. Patient instructed to follow with lifestyle management and will follow up after her appointment with oncologist. No medications will be started today. We will get [facility] today. 05/06/2023: Weight 238.1, BMI 36.74. Patient congratulated on effort, continues to lose successful, steady weight with lifestyle modifications only. Encourage patient to continue with lifestyle modifications, but she is interested in potentially trying weight management medication. Did talk to her oncologist, who approved semaglutide. We will start 0.25 mg today. Educated on proper use, side effects. We will follow-up in 4 weeks. If experiencing undesirable side effects, patient will discontinue medication and continue with lifestyle modifications as she is having great success with that at this time. Patient thankful. 06/02/2023: Weight 231.7, BMI 35.75. Patient congratulated on effort, doing well overall, lack of exercise over the past month because she has been sick, treated with antibiotics for UTI/infection. Goal is to increase resistance training over the next month, as well as portion control, otherwise doing well, continue with semaglutide 0.25 mg 08/01/2023: Weight 225.5, BMI 34.79. Patient graduated an effort, continuing to lose slow, steady weight. Educated to continue with lifestyle modifications. Will continue semaglutide 0.5 mg, but will try to send Wegovy 1 mg through health insurance. 09/29/23: Weight 219.8, BMI 33.91. Patient congratulated on effort, losing slow, steady weight. Taking Wegovy 1 mg x 2 weeks, having some nausea, 2 episodes of vomiting, acid reflux, and lack of appetite. Will prescribe Zofran. Also having some concerns in regards to her bone density slightly declining. Educated on the importance of high-protein, resistance training, will cut Wegovy from 1 mg to 0.5 mg. She is aware of the national shortage, and she may have to switch back over to semaglutide 0.5 mg in office pending availability. 01/04/2024: Weight 218, BMI 33.64. Patient having some success with weight loss, body scan reviewed showing mostly fat loss, minimal muscle loss. Will increase Wegovy from 0.5 mg to 1 mg. Following up with my colleague on 02/08, and then with myself on 03/08. 02/09/24: Weight: 213 lb, BMI 32. Continue Wegovy 1 mg subcu weekly. Body composition scale shows muscle loss. Increase protein and consistent resistance training. Discussed importance of life style in conjuction with medication for effectiveness. Follow up with Pallavi Ramirez PA-C on 03/0804/18/2024: Weight 211, BMI 32.63. Patient's weight plateaued since last visit, but she was sick with pneumonia. Skipped 1 week of Wegovy, getting back on it. Requesting refill of Wegovy 1.0, and Zofran. Pleased with progress overall.Focusing on increasing protein. Resistance training 1 time weekly, walking her dog 2 days weekly. 07/19/2024: Weight 206, BMI 31.78. Patient feels like she has plateau'd on Wegovy 1 mg weekly, though she has not been exercising. Emphasized the importance of high protein diet and resistance training to prevent muscle loss and continue to lose weight. Continue Wegovy 1 mg weekly. Consider increasing to 1.7 mg at next visit. Follow up in 3-4 weeks. 08/18/2024: Weight 199, BMI 30. Patient congratulated on effort. Did have a norovirus last week, so diarrhea/vomiting but this is all resolved. She is very pleased that she officially is less than 200 pounds. Will continue with Wegovy 1 mg, follow-up in 6 weeks. Patient focusing on increasing protein and resistance training. 09/28/24: Weight 203, BMI 31. Will increase Wegovy to 1.7 mg. Discussed lifestyle modifications 11/07/2024: Weight 200.9, BMI 31. Congratulated on effort. She has lost fat mass and visceral adipose tissue while increasing muscle mass since last visit. Continue Wegovy 1.7 mg weekly. Continue lifestyle modifications. Follow-up in 6 weeks. 12/15/2024: Weight 194, BMI 30. Continuing to lose slow, steady weight but having nausea, and sometimes vomiting as a side effect of Wegovy 1.7 mg although she was at a plateau taking Wegovy 1 mg. Patient interested in switching to Zepbound. Will submit 2.5 mg of Zepbound to the pharmacy. Discussed proper use, side effects, insurance coverage, and prior authorization process.Scheduled for colonoscopy this Wednesday, therefore is holding off on GLP-1 at this time. #History of breast cancer, in remission. Lymphedema on left side, educated to not take blood pressure on left side. Taking anastrozole 1 mg, BRCA negative.Oncologist states that semaglutide is safe to take with patient history #Restless leg: Taking gabapentin, educated on magnesium glycinate #Hypothyroidism: Taking Synthroid 200 mcg, follows with endocrinology. #Constipation: Educated on conservative treatment such as prune juice, hydration, exercise, as well as MiraLAX as needed etc. Total time spent today was 30 minutes of which greater than 50% was spent on coordinating and counseling Case discussed with collaborating physician Micheal Armstrong who reviewed the assessment and plan. Chart, medications, labs, vital signs reviewed. Dictation was accomplished with the use of [employer] voice recognition software, prone to medical misidentifications and grammatical errors. This is unintentional and the practitioner does try to identify and correct these, but some could still be present. Please do not hesitate to contact practitioner for clarification. All quetsions answered to patients satisfaction. Patient verbalized understanding of diagnosis and treatments explained. To call sooner prior to next visit it any questions/concerns arise. 11/07/2024 Nutritional counseling (ICD-10 - Z71.3) Vanessa is a 49-year-old female who presents the office for weight management f/u. 02/11/2023: 252.3, BMI 38.93. Patient extensively educated on lifestyle modifications including high-protein foods, low carbohydrate snacks, healthy fats, sleep hygiene, stress reduction. Patient was provided with educational documentation regarding all of this. Did extensively educate on medications. She is going to talk to her oncologist about some options. In the meantime, we will order hemoglobin A1c, and insulin level. Patient will focus on lifestyle modifications. Looking to lose weight to potentially get cosmetic surgery of her breast secondary to history of breast cancer. 03/16/23: Weight 243.8, BMI 37.62. Patient lost 9 lbs through lifestyle management since last visit. Congratulated patient on effort. Has been following a goal of 17,000 calories, 60 oz of water and 80 grams of protein a day. Starts her mornings off with a walk and exercises at the gym for 45 minutes on both Wednesday and Wednesday. Body composition scan reviewed today show a drop in weight, BMI, fat mass and muscle mass but an increase in visceral adipose tissue and waist circumference. Patient educated on importance of maintaining protein intake and incorporating strength/weight training into weekly routine to prevent further muscle loss. Patient was to discuss with oncologist weight loss medications before initiating but was unable to get an appointment until April 19. Patient instructed to follow with lifestyle management and will follow up after her appointment with oncologist. No medications will be started today. We will get [facility] today. 05/06/2023: Weight 238.1, BMI 36.74. Patient congratulated on effort, continues to lose successful, steady weight with lifestyle modifications only. Encourage patient to continue with lifestyle modifications, but she is interested in potentially trying weight management medication. Did talk to her oncologist, who approved semaglutide. We will start 0.25 mg today. Educated on proper use, side effects. We will follow-up in 4 weeks. If experiencing undesirable side effects, patient will discontinue medication and continue with lifestyle modifications as she is having great success with that at this time. Patient thankful. 06/02/2023: Weight 231.7, BMI 35.75. Patient congratulated on effort, doing well overall, lack of exercise over the past month because she has been sick, treated with antibiotics for UTI/infection. Goal is to increase resistance training over the next month, as well as portion control, otherwise doing well, continue with semaglutide 0.25 mg 08/01/2023: Weight 225.5, BMI 34.79. Patient graduated an effort, continuing to lose slow, steady weight. Educated to continue with lifestyle modifications. Will continue semaglutide 0.5 mg, but will try to send Wegovy 1 mg through health insurance. 09/29/23: Weight 219.8, BMI 33.91. Patient congratulated on effort, losing slow, steady weight. Taking Wegovy 1 mg x 2 weeks, having some nausea, 2 episodes of vomiting, acid reflux, and lack of appetite. Will prescribe Zofran. Also having some concerns in regards to her bone density slightly declining. Educated on the importance of high-protein, resistance training, will cut Wegovy from 1 mg to 0.5 mg. She is aware of the national shortage, and she may have to switch back over to semaglutide 0.5 mg in office pending availability. 01/04/2024: Weight 218, BMI 33.64. Patient having some success with weight loss, body scan reviewed showing mostly fat loss, minimal muscle loss. Will increase Wegovy from 0.5 mg to 1 mg. Following up with my colleague on 02/08, and then with myself on 03/08. 02/09/24: Weight: 213 lb, BMI 32. Continue Wegovy 1 mg subcu weekly. Body composition scale shows muscle loss. Increase protein and consistent resistance training. Discussed importance of life style in conjuction with medication for effectiveness. Follow up with Pallavi Ramirez PA-C on 03/0804/18/2024: Weight 211, BMI 32.63. Patient's weight plateaued since last visit, but she was sick with pneumonia. Skipped 1 week of Wegovy, getting back on it. Requesting refill of Wegovy 1.0, and Zofran. Pleased with progress overall.Focusing on increasing protein. Resistance training 1 time weekly, walking her dog 2 days weekly. 07/19/2024: Weight 206, BMI 31.78. Patient feels like she has plateau'd on Wegovy 1 mg weekly, though she has not been exercising. Emphasized the importance of high protein diet and resistance training to prevent muscle loss and continue to lose weight. Continue Wegovy 1 mg weekly. Consider increasing to 1.7 mg at next visit. Follow up in 3-4 weeks. 08/18/2024: Weight 199, BMI 30. Patient congratulated on effort. Did have a norovirus last week, so diarrhea/vomiting but this is all resolved. She is very pleased that she officially is less than 200 pounds. Will continue with Wegovy 1 mg, follow-up in 6 weeks. Patient focusing on increasing protein and resistance training. 09/28/24: Weight 203, BMI 31. Will increase Wegovy to 1.7 mg. Discussed lifestyle modifications 11/07/2024: Weight 200.9, BMI 31. Congratulated on effort. She has lost fat mass and visceral adipose tissue while increasing muscle mass since last visit. Continue Wegovy 1.7 mg weekly. Continue lifestyle modifications. Follow-up in 6 weeks. Schedule for mammogram and bone density in 4 weeks.Scheduled for colonoscopy September 2024 #History of breast cancer, in remission. Lymphedema on left side, educated to not take blood pressure on left side. Taking anastrozole 1 mg, BRCA negative.Oncologist states that semaglutide is safe to take with patient history #Restless leg: Taking gabapentin, educated on magnesium glycinate #Hypothyroidism: Taking Synthroid 200 mcg, follows with endocrinology. #Constipation: Educated on conservative treatment such as prune juice, hydration, exercise, as well as MiraLAX as needed etc. Total time spent today was 30 minutes of which greater than 50% was spent on coordinating and counseling Case discussed with collaborating physician Micheal Armstrong who reviewed the assessment and plan. Chart, medications, labs, vital signs reviewed. Dictation was accomplished with the use of [employer] voice recognition software, prone to medical misidentifications and grammatical errors. This is unintentional and the practitioner does try to identify and correct these, but some could still be present. Please do not hesitate to contact practitioner for clarification. All quetsions answered to patients satisfaction. Patient verbalized understanding of diagnosis and treatments explained. To call sooner prior to next visit it any questions/concerns arise. 09/28/2024 Obesity (BMI 30-39.9) (ICD-10 - E66.9) Vanessa is a 49-year-old female who presents the office for weight management f/u. 02/11/2023: 252.3, BMI 38.93. Patient extensively educated on lifestyle modifications including high-protein foods, low carbohydrate snacks, healthy fats, sleep hygiene, stress reduction. Patient was provided with educational documentation regarding all of this. Did extensively educate on medications. She is going to talk to her oncologist about some options. In the meantime, we will order hemoglobin A1c, and insulin level. Patient will focus on lifestyle modifications. Looking to lose weight to potentially get cosmetic surgery of her breast secondary to history of breast cancer. 03/16/23: Weight 243.8, BMI 37.62. Patient lost 9 lbs through lifestyle management since last visit. Congratulated patient on effort. Has been following a goal of 17,000 calories, 60 oz of water and 80 grams of protein a day. Starts her mornings off with a walk and exercises at the gym for 45 minutes on both Wednesday and Wednesday. Body composition scan reviewed today show a drop in weight, BMI, fat mass and muscle mass but an increase in visceral adipose tissue and waist circumference. Patient educated on importance of maintaining protein intake and incorporating strength/weight training into weekly routine to prevent further muscle loss. Patient was to discuss with oncologist weight loss medications before initiating but was unable to get an appointment until April 19. Patient instructed to follow with lifestyle management and will follow up after her appointment with oncologist. No medications will be started today. We will get [facility] today. 05/06/2023: Weight 238.1, BMI 36.74. Patient congratulated on effort, continues to lose successful, steady weight with lifestyle modifications only. Encourage patient to continue with lifestyle modifications, but she is interested in potentially trying weight management medication. Did talk to her oncologist, who approved semaglutide. We will start 0.25 mg today. Educated on proper use, side effects. We will follow-up in 4 weeks. If experiencing undesirable side effects, patient will discontinue medication and continue with lifestyle modifications as she is having great success with that at this time. Patient thankful. 06/02/2023: Weight 231.7, BMI 35.75. Patient congratulated on effort, doing well overall, lack of exercise over the past month because she has been sick, treated with antibiotics for UTI/infection. Goal is to increase resistance training over the next month, as well as portion control, otherwise doing well, continue with semaglutide 0.25 mg 08/01/2023: Weight 225.5, BMI 34.79. Patient graduated an effort, continuing to lose slow, steady weight. Educated to continue with lifestyle modifications. Will continue semaglutide 0.5 mg, but will try to send Wegovy 1 mg through health insurance. 09/29/23: Weight 219.8, BMI 33.91. Patient congratulated on effort, losing slow, steady weight. Taking Wegovy 1 mg x 2 weeks, having some nausea, 2 episodes of vomiting, acid reflux, and lack of appetite. Will prescribe Zofran. Also having some concerns in regards to her bone density slightly declining. Educated on the importance of high-protein, resistance training, will cut Wegovy from 1 mg to 0.5 mg. She is aware of the national shortage, and she may have to switch back over to semaglutide 0.5 mg in office pending availability. 01/04/2024: Weight 218, BMI 33.64. Patient having some success with weight loss, body scan reviewed showing mostly fat loss, minimal muscle loss. Will increase Wegovy from 0.5 mg to 1 mg. Following up with my colleague on 02/08, and then with myself on 03/08. 02/09/24: Weight: 213 lb, BMI 32. Continue Wegovy 1 mg subcu weekly. Body composition scale shows muscle loss. Increase protein and consistent resistance training. Discussed importance of life style in conjuction with medication for effectiveness. Follow up with Pallavi Ramirez PA-C on 03/0804/18/2024: Weight 211, BMI 32.63. Patient's weight plateaued since last visit, but she was sick with pneumonia. Skipped 1 week of Wegovy, getting back on it. Requesting refill of Wegovy 1.0, and Zofran. Pleased with progress overall.Focusing on increasing protein. Resistance training 1 time weekly, walking her dog 2 days weekly. 07/19/2024: Weight 206, BMI 31.78. Patient feels like she has plateau'd on Wegovy 1 mg weekly, though she has not been exercising. Emphasized the importance of high protein diet and resistance training to prevent muscle loss and continue to lose weight. Continue Wegovy 1 mg weekly. Consider increasing to 1.7 mg at next visit. Follow up in 3-4 weeks. 08/18/2024: Weight 199, BMI 30. Patient congratulated on effort. Did have a norovirus last week, so diarrhea/vomiting but this is all resolved. She is very pleased that she officially is less than 200 pounds. Will continue with Wegovy 1 mg, follow-up in 6 weeks. Patient focusing on increasing protein and resistance training. 09/28/24: Weight 203, BMI 31. Will increase Wegovy to 1.7 mg. Discussed lifestyle modifications Schedule for mammogram and bone density in 4 weeks.Scheduled for colonoscopy September 2024 #History of breast cancer, in remission. Lymphedema on left side, educated to not take blood pressure on left side. Taking anastrozole 1 mg, BRCA negative.Oncologist states that semaglutide is safe to take with patient history #Restless leg: Taking gabapentin, educated on magnesium glycinate #Hypothyroidism: Taking Synthroid 200 mcg, follows with endocrinology. #Constipation: Educated on conservative treatment such as prune juice, hydration, exercise, as well as MiraLAX as needed etc. Total time spent today was 30 minutes of which greater than 50% was spent on coordinating and counseling Case discussed with collaborating physician Micheal Armstrong who reviewed the assessment and plan. Chart, medications, labs, vital signs reviewed. Dictation was accomplished with the use of [employer] voice recognition software, prone to medical misidentifications and grammatical errors. This is unintentional and the practitioner does try to identify and correct these, but some could still be present. Please do not hesitate to contact practitioner for clarification. All quetsions answered to patients satisfaction. Patient verbalized understanding of diagnosis and treatments explained. To call sooner prior to next visit it any questions/concerns arise. 09/28/2024 History of breast cancer (ICD-10 - Z85.3) Vanessa is a 49-year-old female who presents the office for weight management f/u. 02/11/2023: 252.3, BMI 38.93. Patient extensively educated on lifestyle modifications including high-protein foods, low carbohydrate snacks, healthy fats, sleep hygiene, stress reduction. Patient was provided with educational documentation regarding all of this. Did extensively educate on medications. She is going to talk to her oncologist about some options. In the meantime, we will order hemoglobin A1c, and insulin level. Patient will focus on lifestyle modifications. Looking to lose weight to potentially get cosmetic surgery of her breast secondary to history of breast cancer. 03/16/23: Weight 243.8, BMI 37.62. Patient lost 9 lbs through lifestyle management since last visit. Congratulated patient on effort. Has been following a goal of 17,000 calories, 60 oz of water and 80 grams of protein a day. Starts her mornings off with a walk and exercises at the gym for 45 minutes on both Wednesday and Wednesday. Body composition scan reviewed today show a drop in weight, BMI, fat mass and muscle mass but an increase in visceral adipose tissue and waist circumference. Patient educated on importance of maintaining protein intake and incorporating strength/weight training into weekly routine to prevent further muscle loss. Patient was to discuss with oncologist weight loss medications before initiating but was unable to get an appointment until April 19. Patient instructed to follow with lifestyle management and will follow up after her appointment with oncologist. No medications will be started today. We will get [facility] today. 05/06/2023: Weight 238.1, BMI 36.74. Patient congratulated on effort, continues to lose successful, steady weight with lifestyle modifications only. Encourage patient to continue with lifestyle modifications, but she is interested in potentially trying weight management medication. Did talk to her oncologist, who approved semaglutide. We will start 0.25 mg today. Educated on proper use, side effects. We will follow-up in 4 weeks. If experiencing undesirable side effects, patient will discontinue medication and continue with lifestyle modifications as she is having great success with that at this time. Patient thankful. 06/02/2023: Weight 231.7, BMI 35.75. Patient congratulated on effort, doing well overall, lack of exercise over the past month because she has been sick, treated with antibiotics for UTI/infection. Goal is to increase resistance training over the next month, as well as portion control, otherwise doing well, continue with semaglutide 0.25 mg 08/01/2023: Weight 225.5, BMI 34.79. Patient graduated an effort, continuing to lose slow, steady weight. Educated to continue with lifestyle modifications. Will continue semaglutide 0.5 mg, but will try to send Wegovy 1 mg through health insurance. 09/29/23: Weight 219.8, BMI 33.91. Patient congratulated on effort, losing slow, steady weight. Taking Wegovy 1 mg x 2 weeks, having some nausea, 2 episodes of vomiting, acid reflux, and lack of appetite. Will prescribe Zofran. Also having some concerns in regards to her bone density slightly declining. Educated on the importance of high-protein, resistance training, will cut Wegovy from 1 mg to 0.5 mg. She is aware of the national shortage, and she may have to switch back over to semaglutide 0.5 mg in office pending availability. 01/04/2024: Weight 218, BMI 33.64. Patient having some success with weight loss, body scan reviewed showing mostly fat loss, minimal muscle loss. Will increase Wegovy from 0.5 mg to 1 mg. Following up with my colleague on 02/08, and then with myself on 03/08. 02/09/24: Weight: 213 lb, BMI 32. Continue Wegovy 1 mg subcu weekly. Body composition scale shows muscle loss. Increase protein and consistent resistance training. Discussed importance of life style in conjuction with medication for effectiveness. Follow up with Pallavi Ramirez PA-C on 03/0804/18/2024: Weight 211, BMI 32.63. Patient's weight plateaued since last visit, but she was sick with pneumonia. Skipped 1 week of Wegovy, getting back on it. Requesting refill of Wegovy 1.0, and Zofran. Pleased with progress overall.Focusing on increasing protein. Resistance training 1 time weekly, walking her dog 2 days weekly. 07/19/2024: Weight 206, BMI 31.78. Patient feels like she has plateau'd on Wegovy 1 mg weekly, though she has not been exercising. Emphasized the importance of high protein diet and resistance training to prevent muscle loss and continue to lose weight. Continue Wegovy 1 mg weekly. Consider increasing to 1.7 mg at next visit. Follow up in 3-4 weeks. 08/18/2024: Weight 199, BMI 30. Patient congratulated on effort. Did have a norovirus last week, so diarrhea/vomiting but this is all resolved. She is very pleased that she officially is less than 200 pounds. Will continue with Wegovy 1 mg, follow-up in 6 weeks. Patient focusing on increasing protein and resistance training. 09/28/24: Weight 203, BMI 31. Will increase Wegovy to 1.7 mg. Discussed lifestyle modifications Schedule for mammogram and bone density in 4 weeks.Scheduled for colonoscopy September 2024 #History of breast cancer, in remission. Lymphedema on left side, educated to not take blood pressure on left side. Taking anastrozole 1 mg, BRCA negative.Oncologist states that semaglutide is safe to take with patient history #Restless leg: Taking gabapentin, educated on magnesium glycinate #Hypothyroidism: Taking Synthroid 200 mcg, follows with endocrinology. #Constipation: Educated on conservative treatment such as prune juice, hydration, exercise, as well as MiraLAX as needed etc. Total time spent today was 30 minutes of which greater than 50% was spent on coordinating and counseling Case discussed with collaborating physician Micheal Armstrong who reviewed the assessment and plan. Chart, medications, labs, vital signs reviewed. Dictation was accomplished with the use of [employer] voice recognition software, prone to medical misidentifications and grammatical errors. This is unintentional and the practitioner does try to identify and correct these, but some could still be present. Please do not hesitate to contact practitioner for clarification. All quetsions answered to patients satisfaction. Patient verbalized understanding of diagnosis and treatments explained. To call sooner prior to next visit it any questions/concerns arise. 11/07/2024 Obesity (BMI 30-39.9) (ICD-10 - E66.9) Vanessa is a 49-year-old female who presents the office for weight management f/u. 02/11/2023: 252.3, BMI 38.93. Patient extensively educated on lifestyle modifications including high-protein foods, low carbohydrate snacks, healthy fats, sleep hygiene, stress reduction. Patient was provided with educational documentation regarding all of this. Did extensively educate on medications. She is going to talk to her oncologist about some options. In the meantime, we will order hemoglobin A1c, and insulin level. Patient will focus on lifestyle modifications. Looking to lose weight to potentially get cosmetic surgery of her breast secondary to history of breast cancer. 03/16/23: Weight 243.8, BMI 37.62. Patient lost 9 lbs through lifestyle management since last visit. Congratulated patient on effort. Has been following a goal of 17,000 calories, 60 oz of water and 80 grams of protein a day. Starts her mornings off with a walk and exercises at the gym for 45 minutes on both Wednesday and Wednesday. Body composition scan reviewed today show a drop in weight, BMI, fat mass and muscle mass but an increase in visceral adipose tissue and waist circumference. Patient educated on importance of maintaining protein intake and incorporating strength/weight training into weekly routine to prevent further muscle loss. Patient was to discuss with oncologist weight loss medications before initiating but was unable to get an appointment until April 19. Patient instructed to follow with lifestyle management and will follow up after her appointment with oncologist. No medications will be started today. We will get [facility] today. 05/06/2023: Weight 238.1, BMI 36.74. Patient congratulated on effort, continues to lose successful, steady weight with lifestyle modifications only. Encourage patient to continue with lifestyle modifications, but she is interested in potentially trying weight management medication. Did talk to her oncologist, who approved semaglutide. We will start 0.25 mg today. Educated on proper use, side effects. We will follow-up in 4 weeks. If experiencing undesirable side effects, patient will discontinue medication and continue with lifestyle modifications as she is having great success with that at this time. Patient thankful. 06/02/2023: Weight 231.7, BMI 35.75. Patient congratulated on effort, doing well overall, lack of exercise over the past month because she has been sick, treated with antibiotics for UTI/infection. Goal is to increase resistance training over the next month, as well as portion control, otherwise doing well, continue with semaglutide 0.25 mg 08/01/2023: Weight 225.5, BMI 34.79. Patient graduated an effort, continuing to lose slow, steady weight. Educated to continue with lifestyle modifications. Will continue semaglutide 0.5 mg, but will try to send Wegovy 1 mg through health insurance. 09/29/23: Weight 219.8, BMI 33.91. Patient congratulated on effort, losing slow, steady weight. Taking Wegovy 1 mg x 2 weeks, having some nausea, 2 episodes of vomiting, acid reflux, and lack of appetite. Will prescribe Zofran. Also having some concerns in regards to her bone density slightly declining. Educated on the importance of high-protein, resistance training, will cut Wegovy from 1 mg to 0.5 mg. She is aware of the national shortage, and she may have to switch back over to semaglutide 0.5 mg in office pending availability. 01/04/2024: Weight 218, BMI 33.64. Patient having some success with weight loss, body scan reviewed showing mostly fat loss, minimal muscle loss. Will increase Wegovy from 0.5 mg to 1 mg. Following up with my colleague on 02/08, and then with myself on 03/08. 02/09/24: Weight: 213 lb, BMI 32. Continue Wegovy 1 mg subcu weekly. Body composition scale shows muscle loss. Increase protein and consistent resistance training. Discussed importance of life style in conjuction with medication for effectiveness. Follow up with Pallavi Ramirez PA-C on 03/0804/18/2024: Weight 211, BMI 32.63. Patient's weight plateaued since last visit, but she was sick with pneumonia. Skipped 1 week of Wegovy, getting back on it. Requesting refill of Wegovy 1.0, and Zofran. Pleased with progress overall.Focusing on increasing protein. Resistance training 1 time weekly, walking her dog 2 days weekly. 07/19/2024: Weight 206, BMI 31.78. Patient feels like she has plateau'd on Wegovy 1 mg weekly, though she has not been exercising. Emphasized the importance of high protein diet and resistance training to prevent muscle loss and continue to lose weight. Continue Wegovy 1 mg weekly. Consider increasing to 1.7 mg at next visit. Follow up in 3-4 weeks. 08/18/2024: Weight 199, BMI 30. Patient congratulated on effort. Did have a norovirus last week, so diarrhea/vomiting but this is all resolved. She is very pleased that she officially is less than 200 pounds. Will continue with Wegovy 1 mg, follow-up in 6 weeks. Patient focusing on increasing protein and resistance training. 09/28/24: Weight 203, BMI 31. Will increase Wegovy to 1.7 mg. Discussed lifestyle modifications 11/07/2024: Weight 200.9, BMI 31. Congratulated on effort. She has lost fat mass and visceral adipose tissue while increasing muscle mass since last visit. Continue Wegovy 1.7 mg weekly. Continue lifestyle modifications. Follow-up in 6 weeks. Schedule for mammogram and bone density in 4 weeks.Scheduled for colonoscopy September 2024 #History of breast cancer, in remission. Lymphedema on left side, educated to not take blood pressure on left side. Taking anastrozole 1 mg, BRCA negative.Oncologist states that semaglutide is safe to take with patient history #Restless leg: Taking gabapentin, educated on magnesium glycinate #Hypothyroidism: Taking Synthroid 200 mcg, follows with endocrinology. #Constipation: Educated on conservative treatment such as prune juice, hydration, exercise, as well as MiraLAX as needed etc. Total time spent today was 30 minutes of which greater than 50% was spent on coordinating and counseling Case discussed with collaborating physician Micheal Armstrong who reviewed the assessment and plan. Chart, medications, labs, vital signs reviewed. Dictation was accomplished with the use of [employer] voice recognition software, prone to medical misidentifications and grammatical errors. This is unintentional and the practitioner does try to identify and correct these, but some could still be present. Please do not hesitate to contact practitioner for clarification. All quetsions answered to patients satisfaction. Patient verbalized understanding of diagnosis and treatments explained. To call sooner prior to next visit it any questions/concerns arise. 08/18/2024 Obesity (BMI 30-39.9) (ICD-10 - E66.9) Vanessa is a 49-year-old female who presents the office for weight management f/u. 02/11/2023: 252.3, BMI 38.93. Patient extensively educated on lifestyle modifications including high-protein foods, low carbohydrate snacks, healthy fats, sleep hygiene, stress reduction. Patient was provided with educational documentation regarding all of this. Did extensively educate on medications. She is going to talk to her oncologist about some options. In the meantime, we will order hemoglobin A1c, and insulin level. Patient will focus on lifestyle modifications. Looking to lose weight to potentially get cosmetic surgery of her breast secondary to history of breast cancer. 03/16/23: Weight 243.8, BMI 37.62. Patient lost 9 lbs through lifestyle management since last visit. Congratulated patient on effort. Has been following a goal of 17,000 calories, 60 oz of water and 80 grams of protein a day. Starts her mornings off with a walk and exercises at the gym for 45 minutes on both Wednesday and Wednesday. Body composition scan reviewed today show a drop in weight, BMI, fat mass and muscle mass but an increase in visceral adipose tissue and waist circumference. Patient educated on importance of maintaining protein intake and incorporating strength/weight training into weekly routine to prevent further muscle loss. Patient was to discuss with oncologist weight loss medications before initiating but was unable to get an appointment until April 19. Patient instructed to follow with lifestyle management and will follow up after her appointment with oncologist. No medications will be started today. We will get [facility] today. 05/06/2023: Weight 238.1, BMI 36.74. Patient congratulated on effort, continues to lose successful, steady weight with lifestyle modifications only. Encourage patient to continue with lifestyle modifications, but she is interested in potentially trying weight management medication. Did talk to her oncologist, who approved semaglutide. We will start 0.25 mg today. Educated on proper use, side effects. We will follow-up in 4 weeks. If experiencing undesirable side effects, patient will discontinue medication and continue with lifestyle modifications as she is having great success with that at this time. Patient thankful. 06/02/2023: Weight 231.7, BMI 35.75. Patient congratulated on effort, doing well overall, lack of exercise over the past month because she has been sick, treated with antibiotics for UTI/infection. Goal is to increase resistance training over the next month, as well as portion control, otherwise doing well, continue with semaglutide 0.25 mg 08/01/2023: Weight 225.5, BMI 34.79. Patient graduated an effort, continuing to lose slow, steady weight. Educated to continue with lifestyle modifications. Will continue semaglutide 0.5 mg, but will try to send Wegovy 1 mg through health insurance. 09/29/23: Weight 219.8, BMI 33.91. Patient congratulated on effort, losing slow, steady weight. Taking Wegovy 1 mg x 2 weeks, having some nausea, 2 episodes of vomiting, acid reflux, and lack of appetite. Will prescribe Zofran. Also having some concerns in regards to her bone density slightly declining. Educated on the importance of high-protein, resistance training, will cut Wegovy from 1 mg to 0.5 mg. She is aware of the national shortage, and she may have to switch back over to semaglutide 0.5 mg in office pending availability. 01/04/2024: Weight 218, BMI 33.64. Patient having some success with weight loss, body scan reviewed showing mostly fat loss, minimal muscle loss. Will increase Wegovy from 0.5 mg to 1 mg. Following up with my colleague on 02/08, and then with myself on 03/08. 02/09/24: Weight: 213 lb, BMI 32. Continue Wegovy 1 mg subcu weekly. Body composition scale shows muscle loss. Increase protein and consistent resistance training. Discussed importance of life style in conjuction with medication for effectiveness. Follow up with Pallavi Ramirez PA-C on 03/0804/18/2024: Weight 211, BMI 32.63. Patient's weight plateaued since last visit, but she was sick with pneumonia. Skipped 1 week of Wegovy, getting back on it. Requesting refill of Wegovy 1.0, and Zofran. Pleased with progress overall.Focusing on increasing protein. Resistance training 1 time weekly, walking her dog 2 days weekly. 07/19/2024: Weight 206, BMI 31.78. Patient feels like she has plateau'd on Wegovy 1 mg weekly, though she has not been exercising. Emphasized the importance of high protein diet and resistance training to prevent muscle loss and continue to lose weight. Continue Wegovy 1 mg weekly. Consider increasing to 1.7 mg at next visit. Follow up in 3-4 weeks. 08/18/2024: Weight 199, BMI 30. Patient congratulated on effort. Did have a norovirus last week, so diarrhea/vomiting but this is all resolved. She is very pleased that she officially is less than 200 pounds. Will continue with Wegovy 1 mg, follow-up in 6 weeks. Patient focusing on increasing protein and resistance training. Schedule for mammogram and bone density in 4 weeks.Scheduled for colonoscopy September 2024 #History of breast cancer, in remission. Lymphedema on left side, educated to not take blood pressure on left side. Taking anastrozole 1 mg, BRCA negative.Oncologist states that semaglutide is safe to take with patient history #Restless leg: Taking gabapentin, educated on magnesium glycinate #Hypothyroidism: Taking Synthroid 200 mcg, follows with endocrinology. #Constipation: Educated on conservative treatment such as prune juice, hydration, exercise, as well as MiraLAX as needed etc. Total time spent today was 30 minutes of which greater than 50% was spent on coordinating and counseling Case discussed with collaborating physician Micheal Armstrong who reviewed the assessment and plan. Chart, medications, labs, vital signs reviewed. Dictation was accomplished with the use of [employer] voice recognition software, prone to medical misidentifications and grammatical errors. This is unintentional and the practitioner does try to identify and correct these, but some could still be present. Please do not hesitate to contact practitioner for clarification. All quetsions answered to patients satisfaction. Patient verbalized understanding of diagnosis and treatments explained. To call sooner prior to next visit it any questions/concerns arise. 08/18/2024 History of breast cancer (ICD-10 - Z85.3) Vanessa is a 49-year-old female who presents the office for weight management f/u. 02/11/2023: 252.3, BMI 38.93. Patient extensively educated on lifestyle modifications including high-protein foods, low carbohydrate snacks, healthy fats, sleep hygiene, stress reduction. Patient was provided with educational documentation regarding all of this. Did extensively educate on medications. She is going to talk to her oncologist about some options. In the meantime, we will order hemoglobin A1c, and insulin level. Patient will focus on lifestyle modifications. Looking to lose weight to potentially get cosmetic surgery of her breast secondary to history of breast cancer. 03/16/23: Weight 243.8, BMI 37.62. Patient lost 9 lbs through lifestyle management since last visit. Congratulated patient on effort. Has been following a goal of 17,000 calories, 60 oz of water and 80 grams of protein a day. Starts her mornings off with a walk and exercises at the gym for 45 minutes on both Wednesday and Wednesday. Body composition scan reviewed today show a drop in weight, BMI, fat mass and muscle mass but an increase in visceral adipose tissue and waist circumference. Patient educated on importance of maintaining protein intake and incorporating strength/weight training into weekly routine to prevent further muscle loss. Patient was to discuss with oncologist weight loss medications before initiating but was unable to get an appointment until April 19. Patient instructed to follow with lifestyle management and will follow up after her appointment with oncologist. No medications will be started today. We will get [facility] today. 05/06/2023: Weight 238.1, BMI 36.74. Patient congratulated on effort, continues to lose successful, steady weight with lifestyle modifications only. Encourage patient to continue with lifestyle modifications, but she is interested in potentially trying weight management medication. Did talk to her oncologist, who approved semaglutide. We will start 0.25 mg today. Educated on proper use, side effects. We will follow-up in 4 weeks. If experiencing undesirable side effects, patient will discontinue medication and continue with lifestyle modifications as she is having great success with that at this time. Patient thankful. 06/02/2023: Weight 231.7, BMI 35.75. Patient congratulated on effort, doing well overall, lack of exercise over the past month because she has been sick, treated with antibiotics for UTI/infection. Goal is to increase resistance training over the next month, as well as portion control, otherwise doing well, continue with semaglutide 0.25 mg 08/01/2023: Weight 225.5, BMI 34.79. Patient graduated an effort, continuing to lose slow, steady weight. Educated to continue with lifestyle modifications. Will continue semaglutide 0.5 mg, but will try to send Wegovy 1 mg through health insurance. 09/29/23: Weight 219.8, BMI 33.91. Patient congratulated on effort, losing slow, steady weight. Taking Wegovy 1 mg x 2 weeks, having some nausea, 2 episodes of vomiting, acid reflux, and lack of appetite. Will prescribe Zofran. Also having some concerns in regards to her bone density slightly declining. Educated on the importance of high-protein, resistance training, will cut Wegovy from 1 mg to 0.5 mg. She is aware of the national shortage, and she may have to switch back over to semaglutide 0.5 mg in office pending availability. 01/04/2024: Weight 218, BMI 33.64. Patient having some success with weight loss, body scan reviewed showing mostly fat loss, minimal muscle loss. Will increase Wegovy from 0.5 mg to 1 mg. Following up with my colleague on 02/08, and then with myself on 03/08. 02/09/24: Weight: 213 lb, BMI 32. Continue Wegovy 1 mg subcu weekly. Body composition scale shows muscle loss. Increase protein and consistent resistance training. Discussed importance of life style in conjuction with medication for effectiveness. Follow up with Pallavi Ramirez PA-C on 03/0804/18/2024: Weight 211, BMI 32.63. Patient's weight plateaued since last visit, but she was sick with pneumonia. Skipped 1 week of Wegovy, getting back on it. Requesting refill of Wegovy 1.0, and Zofran. Pleased with progress overall.Focusing on increasing protein. Resistance training 1 time weekly, walking her dog 2 days weekly. 07/19/2024: Weight 206, BMI 31.78. Patient feels like she has plateau'd on Wegovy 1 mg weekly, though she has not been exercising. Emphasized the importance of high protein diet and resistance training to prevent muscle loss and continue to lose weight. Continue Wegovy 1 mg weekly. Consider increasing to 1.7 mg at next visit. Follow up in 3-4 weeks. 08/18/2024: Weight 199, BMI 30. Patient congratulated on effort. Did have a norovirus last week, so diarrhea/vomiting but this is all resolved. She is very pleased that she officially is less than 200 pounds. Will continue with Wegovy 1 mg, follow-up in 6 weeks. Patient focusing on increasing protein and resistance training. Schedule for mammogram and bone density in 4 weeks.Scheduled for colonoscopy September 2024 #History of breast cancer, in remission. Lymphedema on left side, educated to not take blood pressure on left side. Taking anastrozole 1 mg, BRCA negative.Oncologist states that semaglutide is safe to take with patient history #Restless leg: Taking gabapentin, educated on magnesium glycinate #Hypothyroidism: Taking Synthroid 200 mcg, follows with endocrinology. #Constipation: Educated on conservative treatment such as prune juice, hydration, exercise, as well as MiraLAX as needed etc. Total time spent today was 30 minutes of which greater than 50% was spent on coordinating and counseling Case discussed with collaborating physician Micheal Armstrong who reviewed the assessment and plan. Chart, medications, labs, vital signs reviewed. Dictation was accomplished with the use of [employer] voice recognition software, prone to medical misidentifications and grammatical errors. This is unintentional and the practitioner does try to identify and correct these, but some could still be present. Please do not hesitate to contact practitioner for clarification. All quetsions answered to patients satisfaction. Patient verbalized understanding of diagnosis and treatments explained. To call sooner prior to next visit it any questions/concerns arise. 07/19/2024 Obesity (BMI 30-39.9) (ICD-10 - E66.9) Vanessa is a 49-year-old female who presents the office for weight management f/u. 02/11/2023: 252.3, BMI 38.93. Patient extensively educated on lifestyle modifications including high-protein foods, low carbohydrate snacks, healthy fats, sleep hygiene, stress reduction. Patient was provided with educational documentation regarding all of this. Did extensively educate on medications. She is going to talk to her oncologist about some options. In the meantime, we will order hemoglobin A1c, and insulin level. Patient will focus on lifestyle modifications. Looking to lose weight to potentially get cosmetic surgery of her breast secondary to history of breast cancer. 03/16/23: Weight 243.8, BMI 37.62. Patient lost 9 lbs through lifestyle management since last visit. Congratulated patient on effort. Has been following a goal of 17,000 calories, 60 oz of water and 80 grams of protein a day. Starts her mornings off with a walk and exercises at the gym for 45 minutes on both Wednesday and Wednesday. Body composition scan reviewed today show a drop in weight, BMI, fat mass and muscle mass but an increase in visceral adipose tissue and waist circumference. Patient educated on importance of maintaining protein intake and incorporating strength/weight training into weekly routine to prevent further muscle loss. Patient was to discuss with oncologist weight loss medications before initiating but was unable to get an appointment until April 19. Patient instructed to follow with lifestyle management and will follow up after her appointment with oncologist. No medications will be started today. We will get [facility] today. 05/06/2023: Weight 238.1, BMI 36.74. Patient congratulated on effort, continues to lose successful, steady weight with lifestyle modifications only. Encourage patient to continue with lifestyle modifications, but she is interested in potentially trying weight management medication. Did talk to her oncologist, who approved semaglutide. We will start 0.25 mg today. Educated on proper use, side effects. We will follow-up in 4 weeks. If experiencing undesirable side effects, patient will discontinue medication and continue with lifestyle modifications as she is having great success with that at this time. Patient thankful. 06/02/2023: Weight 231.7, BMI 35.75. Patient congratulated on effort, doing well overall, lack of exercise over the past month because she has been sick, treated with antibiotics for UTI/infection. Goal is to increase resistance training over the next month, as well as portion control, otherwise doing well, continue with semaglutide 0.25 mg 08/01/2023: Weight 225.5, BMI 34.79. Patient graduated an effort, continuing to lose slow, steady weight. Educated to continue with lifestyle modifications. Will continue semaglutide 0.5 mg, but will try to send Wegovy 1 mg through health insurance. 09/29/23: Weight 219.8, BMI 33.91. Patient congratulated on effort, losing slow, steady weight. Taking Wegovy 1 mg x 2 weeks, having some nausea, 2 episodes of vomiting, acid reflux, and lack of appetite. Will prescribe Zofran. Also having some concerns in regards to her bone density slightly declining. Educated on the importance of high-protein, resistance training, will cut Wegovy from 1 mg to 0.5 mg. She is aware of the national shortage, and she may have to switch back over to semaglutide 0.5 mg in office pending availability. 01/04/2024: Weight 218, BMI 33.64. Patient having some success with weight loss, body scan reviewed showing mostly fat loss, minimal muscle loss. Will increase Wegovy from 0.5 mg to 1 mg. Following up with my colleague on 02/08, and then with myself on 03/08. 02/09/24: Weight: 213 lb, BMI 32. Continue Wegovy 1 mg subcu weekly. Body composition scale shows muscle loss. Increase protein and consistent resistance training. Discussed importance of life style in conjuction with medication for effectiveness. Follow up with Pallavi Ramirez PA-C on 03/0804/18/2024: Weight 211, BMI 32.63. Patient's weight plateaued since last visit, but she was sick with pneumonia. Skipped 1 week of Wegovy, getting back on it. Requesting refill of Wegovy 1.0, and Zofran. Pleased with progress overall.Focusing on increasing protein. Resistance training 1 time weekly, walking her dog 2 days weekly. 07/19/2024: Weight 206, BMI 31.78. Patient feels like she has plateau'd on Wegovy 1 mg weekly, though she has not been exercising. Emphasized the importance of high protein diet and resistance training to prevent muscle loss and continue to lose weight. Continue Wegovy 1 mg weekly. Consider increasing to 1.7 mg at next visit. Follow up in 3-4 weeks. #History of breast cancer, in remission. Lymphedema on left side, educated to not take blood pressure on left side. Taking anastrozole 1 mg, BRCA negative.Oncologist states that semaglutide is safe to take with patient history #Restless leg: Taking gabapentin, educated on magnesium glycinate #Hypothyroidism: Taking Synthroid 200 mcg, follows with endocrinology. #Constipation: Educated on conservative treatment such as prune juice, hydration, exercise, as well as MiraLAX as needed etc. Total time spent today was 30 minutes of which greater than 50% was spent on coordinating and counseling Case discussed with collaborating physician Micheal Armstrong who reviewed the assessment and plan. Chart, medications, labs, vital signs reviewed. Dictation was accomplished with the use of [employer] voice recognition software, prone to medical misidentifications and grammatical errors. This is unintentional and the practitioner does try to identify and correct these, but some could still be present. Please do not hesitate to contact practitioner for clarification. All quetsions answered to patients satisfaction. Patient verbalized understanding of diagnosis and treatments explained. To call sooner prior to next visit it any questions/concerns arise. 07/19/2024 History of breast cancer (ICD-10 - Z85.3) Vanessa is a 49-year-old female who presents the office for weight management f/u. 02/11/2023: 252.3, BMI 38.93. Patient extensively educated on lifestyle modifications including high-protein foods, low carbohydrate snacks, healthy fats, sleep hygiene, stress reduction. Patient was provided with educational documentation regarding all of this. Did extensively educate on medications. She is going to talk to her oncologist about some options. In the meantime, we will order hemoglobin A1c, and insulin level. Patient will focus on lifestyle modifications. Looking to lose weight to potentially get cosmetic surgery of her breast secondary to history of breast cancer. 03/16/23: Weight 243.8, BMI 37.62. Patient lost 9 lbs through lifestyle management since last visit. Congratulated patient on effort. Has been following a goal of 17,000 calories, 60 oz of water and 80 grams of protein a day. Starts her mornings off with a walk and exercises at the gym for 45 minutes on both Wednesday and Wednesday. Body composition scan reviewed today show a drop in weight, BMI, fat mass and muscle mass but an increase in visceral adipose tissue and waist circumference. Patient educated on importance of maintaining protein intake and incorporating strength/weight training into weekly routine to prevent further muscle loss. Patient was to discuss with oncologist weight loss medications before initiating but was unable to get an appointment until April 19. Patient instructed to follow with lifestyle management and will follow up after her appointment with oncologist. No medications will be started today. We will get [facility] today. 05/06/2023: Weight 238.1, BMI 36.74. Patient congratulated on effort, continues to lose successful, steady weight with lifestyle modifications only. Encourage patient to continue with lifestyle modifications, but she is interested in potentially trying weight management medication. Did talk to her oncologist, who approved semaglutide. We will start 0.25 mg today. Educated on proper use, side effects. We will follow-up in 4 weeks. If experiencing undesirable side effects, patient will discontinue medication and continue with lifestyle modifications as she is having great success with that at this time. Patient thankful. 06/02/2023: Weight 231.7, BMI 35.75. Patient congratulated on effort, doing well overall, lack of exercise over the past month because she has been sick, treated with antibiotics for UTI/infection. Goal is to increase resistance training over the next month, as well as portion control, otherwise doing well, continue with semaglutide 0.25 mg 08/01/2023: Weight 225.5, BMI 34.79. Patient graduated an effort, continuing to lose slow, steady weight. Educated to continue with lifestyle modifications. Will continue semaglutide 0.5 mg, but will try to send Wegovy 1 mg through health insurance. 09/29/23: Weight 219.8, BMI 33.91. Patient congratulated on effort, losing slow, steady weight. Taking Wegovy 1 mg x 2 weeks, having some nausea, 2 episodes of vomiting, acid reflux, and lack of appetite. Will prescribe Zofran. Also having some concerns in regards to her bone density slightly declining. Educated on the importance of high-protein, resistance training, will cut Wegovy from 1 mg to 0.5 mg. She is aware of the national shortage, and she may have to switch back over to semaglutide 0.5 mg in office pending availability. 01/04/2024: Weight 218, BMI 33.64. Patient having some success with weight loss, body scan reviewed showing mostly fat loss, minimal muscle loss. Will increase Wegovy from 0.5 mg to 1 mg. Following up with my colleague on 02/08, and then with myself on 03/08. 02/09/24: Weight: 213 lb, BMI 32. Continue Wegovy 1 mg subcu weekly. Body composition scale shows muscle loss. Increase protein and consistent resistance training. Discussed importance of life style in conjuction with medication for effectiveness. Follow up with Pallavi Ramirez PA-C on 03/0804/18/2024: Weight 211, BMI 32.63. Patient's weight plateaued since last visit, but she was sick with pneumonia. Skipped 1 week of Wegovy, getting back on it. Requesting refill of Wegovy 1.0, and Zofran. Pleased with progress overall.Focusing on increasing protein. Resistance training 1 time weekly, walking her dog 2 days weekly. 07/19/2024: Weight 206, BMI 31.78. Patient feels like she has plateau'd on Wegovy 1 mg weekly, though she has not been exercising. Emphasized the importance of high protein diet and resistance training to prevent muscle loss and continue to lose weight. Continue Wegovy 1 mg weekly. Consider increasing to 1.7 mg at next visit. Follow up in 3-4 weeks. #History of breast cancer, in remission. Lymphedema on left side, educated to not take blood pressure on left side. Taking anastrozole 1 mg, BRCA negative.Oncologist states that semaglutide is safe to take with patient history #Restless leg: Taking gabapentin, educated on magnesium glycinate #Hypothyroidism: Taking Synthroid 200 mcg, follows with endocrinology. #Constipation: Educated on conservative treatment such as prune juice, hydration, exercise, as well as MiraLAX as needed etc. Total time spent today was 30 minutes of which greater than 50% was spent on coordinating and counseling Case discussed with collaborating physician Micheal Armstrong who reviewed the assessment and plan. Chart, medications, labs, vital signs reviewed. Dictation was accomplished with the use of [employer] voice recognition software, prone to medical misidentifications and grammatical errors. This is unintentional and the practitioner does try to identify and correct these, but some could still be present. Please do not hesitate to contact practitioner for clarification. All quetsions answered to patients satisfaction. Patient verbalized understanding of diagnosis and treatments explained. To call sooner prior to next visit it any questions/concerns arise. 04/18/2024 History of breast cancer (ICD-10 - Z85.3) Vanessa is a 47-year-old female who presents the office for weight management f/u. 02/11/2023:252.3, BMI 38.93. Patient extensively educated on lifestyle modifications including high-protein foods, low carbohydrate snacks, healthy fats, sleep hygiene, stress reduction. Patient was provided with educational documentation regarding all of this. Did extensively educate on medications. She is going to talk to her oncologist about some options. In the meantime, we will order hemoglobin A1c, and insulin level. Patient will focus on lifestyle modifications. Looking to lose weight to potentially get cosmetic surgery of her breast secondary to history of breast cancer. 03/16/23: Weight 243.8, BMI 37.62. Patient lost 9 lbs through lifestyle management since last visit. Congratulated patient on effort. Has been following a goal of 17,000 calories, 60 oz of water and 80 grams of protein a day. Starts her mornings off with a walk and exercises at the gym for 45 minutes on both Wednesday and Wednesday. Body composition scan reviewed today show a drop in weight, BMI, fat mass and muscle mass but an increase in visceral adipose tissue and waist circumference. Patient educated on importance of maintaining protein intake and incorporating strength/weight training into weekly routine to prevent further muscle loss. Patient was to discuss with oncologist weight loss medications before initiating but was unable to get an appointment until April 19. Patient instructed to follow with lifestyle management and will follow up after her appointment with oncologist. No medications will be started today. We will get [facility] today. 05/06/2023: Weight 238.1, BMI 36.74. Patient congratulated on effort, continues to lose successful, steady weight with lifestyle modifications only. Encourage patient to continue with lifestyle modifications, but she is interested in potentially trying weight management medication. Did talk to her oncologist, who approved semaglutide. We will start 0.25 mg today. Educated on proper use, side effects. We will follow-up in 4 weeks. If experiencing undesirable side effects, patient will discontinue medication and continue with lifestyle modifications as she is having great success with that at this time. Patient thankful. 06/02/2023: Weight 231.7, BMI 35.75. Patient congratulated on effort, doing well overall, lack of exercise over the past month because she has been sick, treated with antibiotics for UTI/infection. Goal is to increase resistance training over the next month, as well as portion control, otherwise doing well, continue with semaglutide 0.25 mg 08/01/2023: Weight 225.5, BMI 34.79. Patient graduated an effort, continuing to lose slow, steady weight. Educated to continue with lifestyle modifications. Will continue semaglutide 0.5 mg, but will try to send Wegovy 1 mg through health insurance. 09/29/23: Weight 219.8, BMI 33.91. Patient congratulated on effort, losing slow, steady weight. Taking Wegovy 1 mg x 2 weeks, having some nausea, 2 episodes of vomiting, acid reflux, and lack of appetite. Will prescribe Zofran. Also having some concerns in regards to her bone density slightly declining. Educated on the importance of high-protein, resistance training, will cut Wegovy from 1 mg to 0.5 mg. She is aware of the national shortage, and she may have to switch back over to semaglutide 0.5 mg in office pending availability. 01/04/2024: Weight 218, BMI 33.64. Patient having some success with weight loss, body scan reviewed showing mostly fat loss, minimal muscle loss. Will increase Wegovy from 0.5 mg to 1 mg. Following up with my colleague on 02/08, and then with myself on 03/08. 02/08/23: Weight: 213 lb, BMI 32. Continue Wegovy 1 mg subcu weekly. Body composition scale shows muscle loss. Increase protein and consistent resistance training. Discussed importance of life style in conjuction with medication for effectiveness. Follow up with Pallavi Ramirez PA-C on 03/0804/18/2024: Weight 211, BMI 32.63. Patient's weight plateaued since last visit, but she was sick with pneumonia. Skipped 1 week of Wegovy, getting back on it. Requesting refill of Wegovy 1.0, and Zofran. Pleased with progress overall.Focusing on increasing protein. Resistance training 1 time weekly, walking her dog 2 days weekly. #History of breast cancer, in remission. Lymphedema on left side, educated to not take blood pressure on left side. Taking anastrozole 1 mg, BRCA negative.Oncologist states that semaglutide is safe to take with patient history #Restless leg: Taking gabapentin, educated on magnesium glycinate #Hypothyroidism: Taking Synthroid 200 mcg, follows with endocrinology. #Constipation: Educated on conservative treatment such as prune juice, hydration, exercise, as well as MiraLAX as needed etc. Total time spent today was 30 minutes of which greater than 50% was spent on coordinating and counseling Case discussed with collaborating physician Micheal Armstrong who reviewed the assessment and plan. Chart, medications, labs, vital signs reviewed. Dictation was accomplished with the use of [employer] voice recognition software, prone to medical misidentifications and grammatical errors. This is unintentional and the practitioner does try to identify and correct these, but some could still be present. Please do not hesitate to contact practitioner for clarification. All quetsions answered to patients satisfaction. Patient verbalized understanding of diagnosis and treatments explained. To call sooner prior to next visit it any questions/concerns arise. 04/18/2024 Restless leg (ICD-10 - G25.81) Vanessa is a 47-year-old female who presents the office for weight management f/u. 02/11/2023:252.3, BMI 38.93. Patient extensively educated on lifestyle modifications including high-protein foods, low carbohydrate snacks, healthy fats, sleep hygiene, stress reduction. Patient was provided with educational documentation regarding all of this. Did extensively educate on medications. She is going to talk to her oncologist about some options. In the meantime, we will order hemoglobin A1c, and insulin level. Patient will focus on lifestyle modifications. Looking to lose weight to potentially get cosmetic surgery of her breast secondary to history of breast cancer. 03/16/23: Weight 243.8, BMI 37.62. Patient lost 9 lbs through lifestyle management since last visit. Congratulated patient on effort. Has been following a goal of 17,000 calories, 60 oz of water and 80 grams of protein a day. Starts her mornings off with a walk and exercises at the gym for 45 minutes on both Wednesday and Wednesday. Body composition scan reviewed today show a drop in weight, BMI, fat mass and muscle mass but an increase in visceral adipose tissue and waist circumference. Patient educated on importance of maintaining protein intake and incorporating strength/weight training into weekly routine to prevent further muscle loss. Patient was to discuss with oncologist weight loss medications before initiating but was unable to get an appointment until April 19. Patient instructed to follow with lifestyle management and will follow up after her appointment with oncologist. No medications will be started today. We will get [facility] today. 05/06/2023: Weight 238.1, BMI 36.74. Patient congratulated on effort, continues to lose successful, steady weight with lifestyle modifications only. Encourage patient to continue with lifestyle modifications, but she is interested in potentially trying weight management medication. Did talk to her oncologist, who approved semaglutide. We will start 0.25 mg today. Educated on proper use, side effects. We will follow-up in 4 weeks. If experiencing undesirable side effects, patient will discontinue medication and continue with lifestyle modifications as she is having great success with that at this time. Patient thankful. 06/02/2023: Weight 231.7, BMI 35.75. Patient congratulated on effort, doing well overall, lack of exercise over the past month because she has been sick, treated with antibiotics for UTI/infection. Goal is to increase resistance training over the next month, as well as portion control, otherwise doing well, continue with semaglutide 0.25 mg 08/01/2023: Weight 225.5, BMI 34.79. Patient graduated an effort, continuing to lose slow, steady weight. Educated to continue with lifestyle modifications. Will continue semaglutide 0.5 mg, but will try to send Wegovy 1 mg through health insurance. 09/29/23: Weight 219.8, BMI 33.91. Patient congratulated on effort, losing slow, steady weight. Taking Wegovy 1 mg x 2 weeks, having some nausea, 2 episodes of vomiting, acid reflux, and lack of appetite. Will prescribe Zofran. Also having some concerns in regards to her bone density slightly declining. Educated on the importance of high-protein, resistance training, will cut Wegovy from 1 mg to 0.5 mg. She is aware of the national shortage, and she may have to switch back over to semaglutide 0.5 mg in office pending availability. 01/04/2024: Weight 218, BMI 33.64. Patient having some success with weight loss, body scan reviewed showing mostly fat loss, minimal muscle loss. Will increase Wegovy from 0.5 mg to 1 mg. Following up with my colleague on 02/08, and then with myself on 03/08. 02/08/23: Weight: 213 lb, BMI 32. Continue Wegovy 1 mg subcu weekly. Body composition scale shows muscle loss. Increase protein and consistent resistance training. Discussed importance of life style in conjuction with medication for effectiveness. Follow up with Pallavi Ramirez PA-C on 03/0804/18/2024: Weight 211, BMI 32.63. Patient's weight plateaued since last visit, but she was sick with pneumonia. Skipped 1 week of Wegovy, getting back on it. Requesting refill of Wegovy 1.0, and Zofran. Pleased with progress overall.Focusing on increasing protein. Resistance training 1 time weekly, walking her dog 2 days weekly. #History of breast cancer, in remission. Lymphedema on left side, educated to not take blood pressure on left side. Taking anastrozole 1 mg, BRCA negative.Oncologist states that semaglutide is safe to take with patient history #Restless leg: Taking gabapentin, educated on magnesium glycinate #Hypothyroidism: Taking Synthroid 200 mcg, follows with endocrinology. #Constipation: Educated on conservative treatment such as prune juice, hydration, exercise, as well as MiraLAX as needed etc. Total time spent today was 30 minutes of which greater than 50% was spent on coordinating and counseling Case discussed with collaborating physician Micheal Armstrong who reviewed the assessment and plan. Chart, medications, labs, vital signs reviewed. Dictation was accomplished with the use of [employer] voice recognition software, prone to medical misidentifications and grammatical errors. This is unintentional and the practitioner does try to identify and correct these, but some could still be present. Please do not hesitate to contact practitioner for clarification. All quetsions answered to patients satisfaction. Patient verbalized understanding of diagnosis and treatments explained. To call sooner prior to next visit it any questions/concerns arise. 07/19/2024 Restless leg (ICD-10 - G25.81) Vanessa is a 49-year-old female who presents the office for weight management f/u. 02/11/2023: 252.3, BMI 38.93. Patient extensively educated on lifestyle modifications including high-protein foods, low carbohydrate snacks, healthy fats, sleep hygiene, stress reduction. Patient was provided with educational documentation regarding all of this. Did extensively educate on medications. She is going to talk to her oncologist about some options. In the meantime, we will order hemoglobin A1c, and insulin level. Patient will focus on lifestyle modifications. Looking to lose weight to potentially get cosmetic surgery of her breast secondary to history of breast cancer. 03/16/23: Weight 243.8, BMI 37.62. Patient lost 9 lbs through lifestyle management since last visit. Congratulated patient on effort. Has been following a goal of 17,000 calories, 60 oz of water and 80 grams of protein a day. Starts her mornings off with a walk and exercises at the gym for 45 minutes on both Wednesday and Wednesday. Body composition scan reviewed today show a drop in weight, BMI, fat mass and muscle mass but an increase in visceral adipose tissue and waist circumference. Patient educated on importance of maintaining protein intake and incorporating strength/weight training into weekly routine to prevent further muscle loss. Patient was to discuss with oncologist weight loss medications before initiating but was unable to get an appointment until April 19. Patient instructed to follow with lifestyle management and will follow up after her appointment with oncologist. No medications will be started today. We will get [facility] today. 05/06/2023: Weight 238.1, BMI 36.74. Patient congratulated on effort, continues to lose successful, steady weight with lifestyle modifications only. Encourage patient to continue with lifestyle modifications, but she is interested in potentially trying weight management medication. Did talk to her oncologist, who approved semaglutide. We will start 0.25 mg today. Educated on proper use, side effects. We will follow-up in 4 weeks. If experiencing undesirable side effects, patient will discontinue medication and continue with lifestyle modifications as she is having great success with that at this time. Patient thankful. 06/02/2023: Weight 231.7, BMI 35.75. Patient congratulated on effort, doing well overall, lack of exercise over the past month because she has been sick, treated with antibiotics for UTI/infection. Goal is to increase resistance training over the next month, as well as portion control, otherwise doing well, continue with semaglutide 0.25 mg 08/01/2023: Weight 225.5, BMI 34.79. Patient graduated an effort, continuing to lose slow, steady weight. Educated to continue with lifestyle modifications. Will continue semaglutide 0.5 mg, but will try to send Wegovy 1 mg through health insurance. 09/29/23: Weight 219.8, BMI 33.91. Patient congratulated on effort, losing slow, steady weight. Taking Wegovy 1 mg x 2 weeks, having some nausea, 2 episodes of vomiting, acid reflux, and lack of appetite. Will prescribe Zofran. Also having some concerns in regards to her bone density slightly declining. Educated on the importance of high-protein, resistance training, will cut Wegovy from 1 mg to 0.5 mg. She is aware of the national shortage, and she may have to switch back over to semaglutide 0.5 mg in office pending availability. 01/04/2024: Weight 218, BMI 33.64. Patient having some success with weight loss, body scan reviewed showing mostly fat loss, minimal muscle loss. Will increase Wegovy from 0.5 mg to 1 mg. Following up with my colleague on 02/08, and then with myself on 03/08. 02/09/24: Weight: 213 lb, BMI 32. Continue Wegovy 1 mg subcu weekly. Body composition scale shows muscle loss. Increase protein and consistent resistance training. Discussed importance of life style in conjuction with medication for effectiveness. Follow up with Pallavi Ramirez PA-C on 03/0804/18/2024: Weight 211, BMI 32.63. Patient's weight plateaued since last visit, but she was sick with pneumonia. Skipped 1 week of Wegovy, getting back on it. Requesting refill of Wegovy 1.0, and Zofran. Pleased with progress overall.Focusing on increasing protein. Resistance training 1 time weekly, walking her dog 2 days weekly. 07/19/2024: Weight 206, BMI 31.78. Patient feels like she has plateau'd on Wegovy 1 mg weekly, though she has not been exercising. Emphasized the importance of high protein diet and resistance training to prevent muscle loss and continue to lose weight. Continue Wegovy 1 mg weekly. Consider increasing to 1.7 mg at next visit. Follow up in 3-4 weeks. #History of breast cancer, in remission. Lymphedema on left side, educated to not take blood pressure on left side. Taking anastrozole 1 mg, BRCA negative.Oncologist states that semaglutide is safe to take with patient history #Restless leg: Taking gabapentin, educated on magnesium glycinate #Hypothyroidism: Taking Synthroid 200 mcg, follows with endocrinology. #Constipation: Educated on conservative treatment such as prune juice, hydration, exercise, as well as MiraLAX as needed etc. Total time spent today was 30 minutes of which greater than 50% was spent on coordinating and counseling Case discussed with collaborating physician Micheal Armstrong who reviewed the assessment and plan. Chart, medications, labs, vital signs reviewed. Dictation was accomplished with the use of [employer] voice recognition software, prone to medical misidentifications and grammatical errors. This is unintentional and the practitioner does try to identify and correct these, but some could still be present. Please do not hesitate to contact practitioner for clarification. All quetsions answered to patients satisfaction. Patient verbalized understanding of diagnosis and treatments explained. To call sooner prior to next visit it any questions/concerns arise. 08/18/2024 Restless leg (ICD-10 - G25.81) Vanessa is a 49-year-old female who presents the office for weight management f/u. 02/11/2023: 252.3, BMI 38.93. Patient extensively educated on lifestyle modifications including high-protein foods, low carbohydrate snacks, healthy fats, sleep hygiene, stress reduction. Patient was provided with educational documentation regarding all of this. Did extensively educate on medications. She is going to talk to her oncologist about some options. In the meantime, we will order hemoglobin A1c, and insulin level. Patient will focus on lifestyle modifications. Looking to lose weight to potentially get cosmetic surgery of her breast secondary to history of breast cancer. 03/16/23: Weight 243.8, BMI 37.62. Patient lost 9 lbs through lifestyle management since last visit. Congratulated patient on effort. Has been following a goal of 17,000 calories, 60 oz of water and 80 grams of protein a day. Starts her mornings off with a walk and exercises at the gym for 45 minutes on both Wednesday and Wednesday. Body composition scan reviewed today show a drop in weight, BMI, fat mass and muscle mass but an increase in visceral adipose tissue and waist circumference. Patient educated on importance of maintaining protein intake and incorporating strength/weight training into weekly routine to prevent further muscle loss. Patient was to discuss with oncologist weight loss medications before initiating but was unable to get an appointment until April 19. Patient instructed to follow with lifestyle management and will follow up after her appointment with oncologist. No medications will be started today. We will get [facility] today. 05/06/2023: Weight 238.1, BMI 36.74. Patient congratulated on effort, continues to lose successful, steady weight with lifestyle modifications only. Encourage patient to continue with lifestyle modifications, but she is interested in potentially trying weight management medication. Did talk to her oncologist, who approved semaglutide. We will start 0.25 mg today. Educated on proper use, side effects. We will follow-up in 4 weeks. If experiencing undesirable side effects, patient will discontinue medication and continue with lifestyle modifications as she is having great success with that at this time. Patient thankful. 06/02/2023: Weight 231.7, BMI 35.75. Patient congratulated on effort, doing well overall, lack of exercise over the past month because she has been sick, treated with antibiotics for UTI/infection. Goal is to increase resistance training over the next month, as well as portion control, otherwise doing well, continue with semaglutide 0.25 mg 08/01/2023: Weight 225.5, BMI 34.79. Patient graduated an effort, continuing to lose slow, steady weight. Educated to continue with lifestyle modifications. Will continue semaglutide 0.5 mg, but will try to send Wegovy 1 mg through health insurance. 09/29/23: Weight 219.8, BMI 33.91. Patient congratulated on effort, losing slow, steady weight. Taking Wegovy 1 mg x 2 weeks, having some nausea, 2 episodes of vomiting, acid reflux, and lack of appetite. Will prescribe Zofran. Also having some concerns in regards to her bone density slightly declining. Educated on the importance of high-protein, resistance training, will cut Wegovy from 1 mg to 0.5 mg. She is aware of the national shortage, and she may have to switch back over to semaglutide 0.5 mg in office pending availability. 01/04/2024: Weight 218, BMI 33.64. Patient having some success with weight loss, body scan reviewed showing mostly fat loss, minimal muscle loss. Will increase Wegovy from 0.5 mg to 1 mg. Following up with my colleague on 02/08, and then with myself on 03/08. 02/09/24: Weight: 213 lb, BMI 32. Continue Wegovy 1 mg subcu weekly. Body composition scale shows muscle loss. Increase protein and consistent resistance training. Discussed importance of life style in conjuction with medication for effectiveness. Follow up with Pallavi Ramirez PA-C on 03/0804/18/2024: Weight 211, BMI 32.63. Patient's weight plateaued since last visit, but she was sick with pneumonia. Skipped 1 week of Wegovy, getting back on it. Requesting refill of Wegovy 1.0, and Zofran. Pleased with progress overall.Focusing on increasing protein. Resistance training 1 time weekly, walking her dog 2 days weekly. 07/19/2024: Weight 206, BMI 31.78. Patient feels like she has plateau'd on Wegovy 1 mg weekly, though she has not been exercising. Emphasized the importance of high protein diet and resistance training to prevent muscle loss and continue to lose weight. Continue Wegovy 1 mg weekly. Consider increasing to 1.7 mg at next visit. Follow up in 3-4 weeks. 08/18/2024: Weight 199, BMI 30. Patient congratulated on effort. Did have a norovirus last week, so diarrhea/vomiting but this is all resolved. She is very pleased that she officially is less than 200 pounds. Will continue with Wegovy 1 mg, follow-up in 6 weeks. Patient focusing on increasing protein and resistance training. Schedule for mammogram and bone density in 4 weeks.Scheduled for colonoscopy September 2024 #History of breast cancer, in remission. Lymphedema on left side, educated to not take blood pressure on left side. Taking anastrozole 1 mg, BRCA negative.Oncologist states that semaglutide is safe to take with patient history #Restless leg: Taking gabapentin, educated on magnesium glycinate #Hypothyroidism: Taking Synthroid 200 mcg, follows with endocrinology. #Constipation: Educated on conservative treatment such as prune juice, hydration, exercise, as well as MiraLAX as needed etc. Total time spent today was 30 minutes of which greater than 50% was spent on coordinating and counseling Case discussed with collaborating physician Micheal Armstrong who reviewed the assessment and plan. Chart, medications, labs, vital signs reviewed. Dictation was accomplished with the use of [employer] voice recognition software, prone to medical misidentifications and grammatical errors. This is unintentional and the practitioner does try to identify and correct these, but some could still be present. Please do not hesitate to contact practitioner for clarification. All quetsions answered to patients satisfaction. Patient verbalized understanding of diagnosis and treatments explained. To call sooner prior to next visit it any questions/concerns arise. 11/07/2024 History of breast cancer (ICD-10 - Z85.3) Vanessa is a 49-year-old female who presents the office for weight management f/u. 02/11/2023: 252.3, BMI 38.93. Patient extensively educated on lifestyle modifications including high-protein foods, low carbohydrate snacks, healthy fats, sleep hygiene, stress reduction. Patient was provided with educational documentation regarding all of this. Did extensively educate on medications. She is going to talk to her oncologist about some options. In the meantime, we will order hemoglobin A1c, and insulin level. Patient will focus on lifestyle modifications. Looking to lose weight to potentially get cosmetic surgery of her breast secondary to history of breast cancer. 03/16/23: Weight 243.8, BMI 37.62. Patient lost 9 lbs through lifestyle management since last visit. Congratulated patient on effort. Has been following a goal of 17,000 calories, 60 oz of water and 80 grams of protein a day. Starts her mornings off with a walk and exercises at the gym for 45 minutes on both Wednesday and Wednesday. Body composition scan reviewed today show a drop in weight, BMI, fat mass and muscle mass but an increase in visceral adipose tissue and waist circumference. Patient educated on importance of maintaining protein intake and incorporating strength/weight training into weekly routine to prevent further muscle loss. Patient was to discuss with oncologist weight loss medications before initiating but was unable to get an appointment until April 19. Patient instructed to follow with lifestyle management and will follow up after her appointment with oncologist. No medications will be started today. We will get [facility] today. 05/06/2023: Weight 238.1, BMI 36.74. Patient congratulated on effort, continues to lose successful, steady weight with lifestyle modifications only. Encourage patient to continue with lifestyle modifications, but she is interested in potentially trying weight management medication. Did talk to her oncologist, who approved semaglutide. We will start 0.25 mg today. Educated on proper use, side effects. We will follow-up in 4 weeks. If experiencing undesirable side effects, patient will discontinue medication and continue with lifestyle modifications as she is having great success with that at this time. Patient thankful. 06/02/2023: Weight 231.7, BMI 35.75. Patient congratulated on effort, doing well overall, lack of exercise over the past month because she has been sick, treated with antibiotics for UTI/infection. Goal is to increase resistance training over the next month, as well as portion control, otherwise doing well, continue with semaglutide 0.25 mg 08/01/2023: Weight 225.5, BMI 34.79. Patient graduated an effort, continuing to lose slow, steady weight. Educated to continue with lifestyle modifications. Will continue semaglutide 0.5 mg, but will try to send Wegovy 1 mg through health insurance. 09/29/23: Weight 219.8, BMI 33.91. Patient congratulated on effort, losing slow, steady weight. Taking Wegovy 1 mg x 2 weeks, having some nausea, 2 episodes of vomiting, acid reflux, and lack of appetite. Will prescribe Zofran. Also having some concerns in regards to her bone density slightly declining. Educated on the importance of high-protein, resistance training, will cut Wegovy from 1 mg to 0.5 mg. She is aware of the national shortage, and she may have to switch back over to semaglutide 0.5 mg in office pending availability. 01/04/2024: Weight 218, BMI 33.64. Patient having some success with weight loss, body scan reviewed showing mostly fat loss, minimal muscle loss. Will increase Wegovy from 0.5 mg to 1 mg. Following up with my colleague on 02/08, and then with myself on 03/08. 02/09/24: Weight: 213 lb, BMI 32. Continue Wegovy 1 mg subcu weekly. Body composition scale shows muscle loss. Increase protein and consistent resistance training. Discussed importance of life style in conjuction with medication for effectiveness. Follow up with Pallavi Ramirez PA-C on 03/0804/18/2024: Weight 211, BMI 32.63. Patient's weight plateaued since last visit, but she was sick with pneumonia. Skipped 1 week of Wegovy, getting back on it. Requesting refill of Wegovy 1.0, and Zofran. Pleased with progress overall.Focusing on increasing protein. Resistance training 1 time weekly, walking her dog 2 days weekly. 07/19/2024: Weight 206, BMI 31.78. Patient feels like she has plateau'd on Wegovy 1 mg weekly, though she has not been exercising. Emphasized the importance of high protein diet and resistance training to prevent muscle loss and continue to lose weight. Continue Wegovy 1 mg weekly. Consider increasing to 1.7 mg at next visit. Follow up in 3-4 weeks. 08/18/2024: Weight 199, BMI 30. Patient congratulated on effort. Did have a norovirus last week, so diarrhea/vomiting but this is all resolved. She is very pleased that she officially is less than 200 pounds. Will continue with Wegovy 1 mg, follow-up in 6 weeks. Patient focusing on increasing protein and resistance training. 09/28/24: Weight 203, BMI 31. Will increase Wegovy to 1.7 mg. Discussed lifestyle modifications 11/07/2024: Weight 200.9, BMI 31. Congratulated on effort. She has lost fat mass and visceral adipose tissue while increasing muscle mass since last visit. Continue Wegovy 1.7 mg weekly. Continue lifestyle modifications. Follow-up in 6 weeks. Schedule for mammogram and bone density in 4 weeks.Scheduled for colonoscopy September 2024 #History of breast cancer, in remission. Lymphedema on left side, educated to not take blood pressure on left side. Taking anastrozole 1 mg, BRCA negative.Oncologist states that semaglutide is safe to take with patient history #Restless leg: Taking gabapentin, educated on magnesium glycinate #Hypothyroidism: Taking Synthroid 200 mcg, follows with endocrinology. #Constipation: Educated on conservative treatment such as prune juice, hydration, exercise, as well as MiraLAX as needed etc. Total time spent today was 30 minutes of which greater than 50% was spent on coordinating and counseling Case discussed with collaborating physician Micheal Armstrong who reviewed the assessment and plan. Chart, medications, labs, vital signs reviewed. Dictation was accomplished with the use of [employer] voice recognition software, prone to medical misidentifications and grammatical errors. This is unintentional and the practitioner does try to identify and correct these, but some could still be present. Please do not hesitate to contact practitioner for clarification. All quetsions answered to patients satisfaction. Patient verbalized understanding of diagnosis and treatments explained. To call sooner prior to next visit it any questions/concerns arise. 09/28/2024 Restless leg (ICD-10 - G25.81) Vanessa is a 49-year-old female who presents the office for weight management f/u. 02/11/2023: 252.3, BMI 38.93. Patient extensively educated on lifestyle modifications including high-protein foods, low carbohydrate snacks, healthy fats, sleep hygiene, stress reduction. Patient was provided with educational documentation regarding all of this. Did extensively educate on medications. She is going to talk to her oncologist about some options. In the meantime, we will order hemoglobin A1c, and insulin level. Patient will focus on lifestyle modifications. Looking to lose weight to potentially get cosmetic surgery of her breast secondary to history of breast cancer. 03/16/23: Weight 243.8, BMI 37.62. Patient lost 9 lbs through lifestyle management since last visit. Congratulated patient on effort. Has been following a goal of 17,000 calories, 60 oz of water and 80 grams of protein a day. Starts her mornings off with a walk and exercises at the gym for 45 minutes on both Wednesday and Wednesday. Body composition scan reviewed today show a drop in weight, BMI, fat mass and muscle mass but an increase in visceral adipose tissue and waist circumference. Patient educated on importance of maintaining protein intake and incorporating strength/weight training into weekly routine to prevent further muscle loss. Patient was to discuss with oncologist weight loss medications before initiating but was unable to get an appointment until April 19. Patient instructed to follow with lifestyle management and will follow up after her appointment with oncologist. No medications will be started today. We will get [facility] today. 05/06/2023: Weight 238.1, BMI 36.74. Patient congratulated on effort, continues to lose successful, steady weight with lifestyle modifications only. Encourage patient to continue with lifestyle modifications, but she is interested in potentially trying weight management medication. Did talk to her oncologist, who approved semaglutide. We will start 0.25 mg today. Educated on proper use, side effects. We will follow-up in 4 weeks. If experiencing undesirable side effects, patient will discontinue medication and continue with lifestyle modifications as she is having great success with that at this time. Patient thankful. 06/02/2023: Weight 231.7, BMI 35.75. Patient congratulated on effort, doing well overall, lack of exercise over the past month because she has been sick, treated with antibiotics for UTI/infection. Goal is to increase resistance training over the next month, as well as portion control, otherwise doing well, continue with semaglutide 0.25 mg 08/01/2023: Weight 225.5, BMI 34.79. Patient graduated an effort, continuing to lose slow, steady weight. Educated to continue with lifestyle modifications. Will continue semaglutide 0.5 mg, but will try to send Wegovy 1 mg through health insurance. 09/29/23: Weight 219.8, BMI 33.91. Patient congratulated on effort, losing slow, steady weight. Taking Wegovy 1 mg x 2 weeks, having some nausea, 2 episodes of vomiting, acid reflux, and lack of appetite. Will prescribe Zofran. Also having some concerns in regards to her bone density slightly declining. Educated on the importance of high-protein, resistance training, will cut Wegovy from 1 mg to 0.5 mg. She is aware of the national shortage, and she may have to switch back over to semaglutide 0.5 mg in office pending availability. 01/04/2024: Weight 218, BMI 33.64. Patient having some success with weight loss, body scan reviewed showing mostly fat loss, minimal muscle loss. Will increase Wegovy from 0.5 mg to 1 mg. Following up with my colleague on 02/08, and then with myself on 03/08. 02/09/24: Weight: 213 lb, BMI 32. Continue Wegovy 1 mg subcu weekly. Body composition scale shows muscle loss. Increase protein and consistent resistance training. Discussed importance of life style in conjuction with medication for effectiveness. Follow up with Pallavi Ramirez PA-C on 03/0804/18/2024: Weight 211, BMI 32.63. Patient's weight plateaued since last visit, but she was sick with pneumonia. Skipped 1 week of Wegovy, getting back on it. Requesting refill of Wegovy 1.0, and Zofran. Pleased with progress overall.Focusing on increasing protein. Resistance training 1 time weekly, walking her dog 2 days weekly. 07/19/2024: Weight 206, BMI 31.78. Patient feels like she has plateau'd on Wegovy 1 mg weekly, though she has not been exercising. Emphasized the importance of high protein diet and resistance training to prevent muscle loss and continue to lose weight. Continue Wegovy 1 mg weekly. Consider increasing to 1.7 mg at next visit. Follow up in 3-4 weeks. 08/18/2024: Weight 199, BMI 30. Patient congratulated on effort. Did have a norovirus last week, so diarrhea/vomiting but this is all resolved. She is very pleased that she officially is less than 200 pounds. Will continue with Wegovy 1 mg, follow-up in 6 weeks. Patient focusing on increasing protein and resistance training. 09/28/24: Weight 203, BMI 31. Will increase Wegovy to 1.7 mg. Discussed lifestyle modifications Schedule for mammogram and bone density in 4 weeks.Scheduled for colonoscopy September 2024 #History of breast cancer, in remission. Lymphedema on left side, educated to not take blood pressure on left side. Taking anastrozole 1 mg, BRCA negative.Oncologist states that semaglutide is safe to take with patient history #Restless leg: Taking gabapentin, educated on magnesium glycinate #Hypothyroidism: Taking Synthroid 200 mcg, follows with endocrinology. #Constipation: Educated on conservative treatment such as prune juice, hydration, exercise, as well as MiraLAX as needed etc. Total time spent today was 30 minutes of which greater than 50% was spent on coordinating and counseling Case discussed with collaborating physician Micheal Armstrong who reviewed the assessment and plan. Chart, medications, labs, vital signs reviewed. Dictation was accomplished with the use of [employer] voice recognition software, prone to medical misidentifications and grammatical errors. This is unintentional and the practitioner does try to identify and correct these, but some could still be present. Please do not hesitate to contact practitioner for clarification. All quetsions answered to patients satisfaction. Patient verbalized understanding of diagnosis and treatments explained. To call sooner prior to next visit it any questions/concerns arise. 12/19/2024 Obesity (BMI 30-39.9) (ICD-10 - E66.9) Vanessa is a 49-year-old female who presents the office for weight management f/u. 02/11/2023: 252.3, BMI 38.93. Patient extensively educated on lifestyle modifications including high-protein foods, low carbohydrate snacks, healthy fats, sleep hygiene, stress reduction. Patient was provided with educational documentation regarding all of this. Did extensively educate on medications. She is going to talk to her oncologist about some options. In the meantime, we will order hemoglobin A1c, and insulin level. Patient will focus on lifestyle modifications. Looking to lose weight to potentially get cosmetic surgery of her breast secondary to history of breast cancer. 03/16/23: Weight 243.8, BMI 37.62. Patient lost 9 lbs through lifestyle management since last visit. Congratulated patient on effort. Has been following a goal of 17,000 calories, 60 oz of water and 80 grams of protein a day. Starts her mornings off with a walk and exercises at the gym for 45 minutes on both Wednesday and Wednesday. Body composition scan reviewed today show a drop in weight, BMI, fat mass and muscle mass but an increase in visceral adipose tissue and waist circumference. Patient educated on importance of maintaining protein intake and incorporating strength/weight training into weekly routine to prevent further muscle loss. Patient was to discuss with oncologist weight loss medications before initiating but was unable to get an appointment until April 19. Patient instructed to follow with lifestyle management and will follow up after her appointment with oncologist. No medications will be started today. We will get [facility] today. 05/06/2023: Weight 238.1, BMI 36.74. Patient congratulated on effort, continues to lose successful, steady weight with lifestyle modifications only. Encourage patient to continue with lifestyle modifications, but she is interested in potentially trying weight management medication. Did talk to her oncologist, who approved semaglutide. We will start 0.25 mg today. Educated on proper use, side effects. We will follow-up in 4 weeks. If experiencing undesirable side effects, patient will discontinue medication and continue with lifestyle modifications as she is having great success with that at this time. Patient thankful. 06/02/2023: Weight 231.7, BMI 35.75. Patient congratulated on effort, doing well overall, lack of exercise over the past month because she has been sick, treated with antibiotics for UTI/infection. Goal is to increase resistance training over the next month, as well as portion control, otherwise doing well, continue with semaglutide 0.25 mg 08/01/2023: Weight 225.5, BMI 34.79. Patient graduated an effort, continuing to lose slow, steady weight. Educated to continue with lifestyle modifications. Will continue semaglutide 0.5 mg, but will try to send Wegovy 1 mg through health insurance. 09/29/23: Weight 219.8, BMI 33.91. Patient congratulated on effort, losing slow, steady weight. Taking Wegovy 1 mg x 2 weeks, having some nausea, 2 episodes of vomiting, acid reflux, and lack of appetite. Will prescribe Zofran. Also having some concerns in regards to her bone density slightly declining. Educated on the importance of high-protein, resistance training, will cut Wegovy from 1 mg to 0.5 mg. She is aware of the national shortage, and she may have to switch back over to semaglutide 0.5 mg in office pending availability. 01/04/2024: Weight 218, BMI 33.64. Patient having some success with weight loss, body scan reviewed showing mostly fat loss, minimal muscle loss. Will increase Wegovy from 0.5 mg to 1 mg. Following up with my colleague on 02/08, and then with myself on 03/08. 02/09/24: Weight: 213 lb, BMI 32. Continue Wegovy 1 mg subcu weekly. Body composition scale shows muscle loss. Increase protein and consistent resistance training. Discussed importance of life style in conjuction with medication for effectiveness. Follow up with Pallavi Ramirez PA-C on 03/0804/18/2024: Weight 211, BMI 32.63. Patient's weight plateaued since last visit, but she was sick with pneumonia. Skipped 1 week of Wegovy, getting back on it. Requesting refill of Wegovy 1.0, and Zofran. Pleased with progress overall.Focusing on increasing protein. Resistance training 1 time weekly, walking her dog 2 days weekly. 07/19/2024: Weight 206, BMI 31.78. Patient feels like she has plateau'd on Wegovy 1 mg weekly, though she has not been exercising. Emphasized the importance of high protein diet and resistance training to prevent muscle loss and continue to lose weight. Continue Wegovy 1 mg weekly. Consider increasing to 1.7 mg at next visit. Follow up in 3-4 weeks. 08/18/2024: Weight 199, BMI 30. Patient congratulated on effort. Did have a norovirus last week, so diarrhea/vomiting but this is all resolved. She is very pleased that she officially is less than 200 pounds. Will continue with Wegovy 1 mg, follow-up in 6 weeks. Patient focusing on increasing protein and resistance training. 09/28/24: Weight 203, BMI 31. Will increase Wegovy to 1.7 mg. Discussed lifestyle modifications 11/07/2024: Weight 200.9, BMI 31. Congratulated on effort. She has lost fat mass and visceral adipose tissue while increasing muscle mass since last visit. Continue Wegovy 1.7 mg weekly. Continue lifestyle modifications. Follow-up in 6 weeks. 12/15/2024: Weight 194, BMI 30. Continuing to lose slow, steady weight but having nausea, and sometimes vomiting as a side effect of Wegovy 1.7 mg although she was at a plateau taking Wegovy 1 mg. Patient interested in switching to Zepbound. Will submit 2.5 mg of Zepbound to the pharmacy. Discussed proper use, side effects, insurance coverage, and prior authorization process.Scheduled for colonoscopy this Wednesday, therefore is holding off on GLP-1 at this time. #History of breast cancer, in remission. Lymphedema on left side, educated to not take blood pressure on left side. Taking anastrozole 1 mg, BRCA negative.Oncologist states that semaglutide is safe to take with patient history #Restless leg: Taking gabapentin, educated on magnesium glycinate #Hypothyroidism: Taking Synthroid 200 mcg, follows with endocrinology. #Constipation: Educated on conservative treatment such as prune juice, hydration, exercise, as well as MiraLAX as needed etc. Total time spent today was 30 minutes of which greater than 50% was spent on coordinating and counseling Case discussed with collaborating physician Micheal Armstrong who reviewed the assessment and plan. Chart, medications, labs, vital signs reviewed. Dictation was accomplished with the use of [employer] voice recognition software, prone to medical misidentifications and grammatical errors. This is unintentional and the practitioner does try to identify and correct these, but some could still be present. Please do not hesitate to contact practitioner for clarification. All quetsions answered to patients satisfaction. Patient verbalized understanding of diagnosis and treatments explained. To call sooner prior to next visit it any questions/concerns arise. 12/19/2024 History of breast cancer (ICD-10 - Z85.3) Vanessa is a 49-year-old female who presents the office for weight management f/u. 02/11/2023: 252.3, BMI 38.93. Patient extensively educated on lifestyle modifications including high-protein foods, low carbohydrate snacks, healthy fats, sleep hygiene, stress reduction. Patient was provided with educational documentation regarding all of this. Did extensively educate on medications. She is going to talk to her oncologist about some options. In the meantime, we will order hemoglobin A1c, and insulin level. Patient will focus on lifestyle modifications. Looking to lose weight to potentially get cosmetic surgery of her breast secondary to history of breast cancer. 03/16/23: Weight 243.8, BMI 37.62. Patient lost 9 lbs through lifestyle management since last visit. Congratulated patient on effort. Has been following a goal of 17,000 calories, 60 oz of water and 80 grams of protein a day. Starts her mornings off with a walk and exercises at the gym for 45 minutes on both Wednesday and Wednesday. Body composition scan reviewed today show a drop in weight, BMI, fat mass and muscle mass but an increase in visceral adipose tissue and waist circumference. Patient educated on importance of maintaining protein intake and incorporating strength/weight training into weekly routine to prevent further muscle loss. Patient was to discuss with oncologist weight loss medications before initiating but was unable to get an appointment until April 19. Patient instructed to follow with lifestyle management and will follow up after her appointment with oncologist. No medications will be started today. We will get [facility] today. 05/06/2023: Weight 238.1, BMI 36.74. Patient congratulated on effort, continues to lose successful, steady weight with lifestyle modifications only. Encourage patient to continue with lifestyle modifications, but she is interested in potentially trying weight management medication. Did talk to her oncologist, who approved semaglutide. We will start 0.25 mg today. Educated on proper use, side effects. We will follow-up in 4 weeks. If experiencing undesirable side effects, patient will discontinue medication and continue with lifestyle modifications as she is having great success with that at this time. Patient thankful. 06/02/2023: Weight 231.7, BMI 35.75. Patient congratulated on effort, doing well overall, lack of exercise over the past month because she has been sick, treated with antibiotics for UTI/infection. Goal is to increase resistance training over the next month, as well as portion control, otherwise doing well, continue with semaglutide 0.25 mg 08/01/2023: Weight 225.5, BMI 34.79. Patient graduated an effort, continuing to lose slow, steady weight. Educated to continue with lifestyle modifications. Will continue semaglutide 0.5 mg, but will try to send Wegovy 1 mg through health insurance. 09/29/23: Weight 219.8, BMI 33.91. Patient congratulated on effort, losing slow, steady weight. Taking Wegovy 1 mg x 2 weeks, having some nausea, 2 episodes of vomiting, acid reflux, and lack of appetite. Will prescribe Zofran. Also having some concerns in regards to her bone density slightly declining. Educated on the importance of high-protein, resistance training, will cut Wegovy from 1 mg to 0.5 mg. She is aware of the national shortage, and she may have to switch back over to semaglutide 0.5 mg in office pending availability. 01/04/2024: Weight 218, BMI 33.64. Patient having some success with weight loss, body scan reviewed showing mostly fat loss, minimal muscle loss. Will increase Wegovy from 0.5 mg to 1 mg. Following up with my colleague on 02/08, and then with myself on 03/08. 02/09/24: Weight: 213 lb, BMI 32. Continue Wegovy 1 mg subcu weekly. Body composition scale shows muscle loss. Increase protein and consistent resistance training. Discussed importance of life style in conjuction with medication for effectiveness. Follow up with Pallavi Ramirez PA-C on 03/0804/18/2024: Weight 211, BMI 32.63. Patient's weight plateaued since last visit, but she was sick with pneumonia. Skipped 1 week of Wegovy, getting back on it. Requesting refill of Wegovy 1.0, and Zofran. Pleased with progress overall.Focusing on increasing protein. Resistance training 1 time weekly, walking her dog 2 days weekly. 07/19/2024: Weight 206, BMI 31.78. Patient feels like she has plateau'd on Wegovy 1 mg weekly, though she has not been exercising. Emphasized the importance of high protein diet and resistance training to prevent muscle loss and continue to lose weight. Continue Wegovy 1 mg weekly. Consider increasing to 1.7 mg at next visit. Follow up in 3-4 weeks. 08/18/2024: Weight 199, BMI 30. Patient congratulated on effort. Did have a norovirus last week, so diarrhea/vomiting but this is all resolved. She is very pleased that she officially is less than 200 pounds. Will continue with Wegovy 1 mg, follow-up in 6 weeks. Patient focusing on increasing protein and resistance training. 09/28/24: Weight 203, BMI 31. Will increase Wegovy to 1.7 mg. Discussed lifestyle modifications 11/07/2024: Weight 200.9, BMI 31. Congratulated on effort. She has lost fat mass and visceral adipose tissue while increasing muscle mass since last visit. Continue Wegovy 1.7 mg weekly. Continue lifestyle modifications. Follow-up in 6 weeks. 12/15/2024: Weight 194, BMI 30. Continuing to lose slow, steady weight but having nausea, and sometimes vomiting as a side effect of Wegovy 1.7 mg although she was at a plateau taking Wegovy 1 mg. Patient interested in switching to Zepbound. Will submit 2.5 mg of Zepbound to the pharmacy. Discussed proper use, side effects, insurance coverage, and prior authorization process.Scheduled for colonoscopy this Wednesday, therefore is holding off on GLP-1 at this time. #History of breast cancer, in remission. Lymphedema on left side, educated to not take blood pressure on left side. Taking anastrozole 1 mg, BRCA negative.Oncologist states that semaglutide is safe to take with patient history #Restless leg: Taking gabapentin, educated on magnesium glycinate #Hypothyroidism: Taking Synthroid 200 mcg, follows with endocrinology. #Constipation: Educated on conservative treatment such as prune juice, hydration, exercise, as well as MiraLAX as needed etc. Total time spent today was 30 minutes of which greater than 50% was spent on coordinating and counseling Case discussed with collaborating physician Micheal Armstrong who reviewed the assessment and plan. Chart, medications, labs, vital signs reviewed. Dictation was accomplished with the use of [employer] voice recognition software, prone to medical misidentifications and grammatical errors. This is unintentional and the practitioner does try to identify and correct these, but some could still be present. Please do not hesitate to contact practitioner for clarification. All quetsions answered to patients satisfaction. Patient verbalized understanding of diagnosis and treatments explained. To call sooner prior to next visit it any questions/concerns arise. 02/12/2025 Obesity (BMI 30-39.9) (ICD-10 - E66.9) Vanessa is a 49-year-old female who presents the office for weight management f/u. 02/11/2023: 252.3, BMI 38.93. Patient extensively educated on lifestyle modifications including high-protein foods, low carbohydrate snacks, healthy fats, sleep hygiene, stress reduction. Patient was provided with educational documentation regarding all of this. Did extensively educate on medications. She is going to talk to her oncologist about some options. In the meantime, we will order hemoglobin A1c, and insulin level. Patient will focus on lifestyle modifications. Looking to lose weight to potentially get cosmetic surgery of her breast secondary to history of breast cancer. 03/16/23: Weight 243.8, BMI 37.62. Patient lost 9 lbs through lifestyle management since last visit. Congratulated patient on effort. Has been following a goal of 17,000 calories, 60 oz of water and 80 grams of protein a day. Starts her mornings off with a walk and exercises at the gym for 45 minutes on both Wednesday and Wednesday. Body composition scan reviewed today show a drop in weight, BMI, fat mass and muscle mass but an increase in visceral adipose tissue and waist circumference. Patient educated on importance of maintaining protein intake and incorporating strength/weight training into weekly routine to prevent further muscle loss. Patient was to discuss with oncologist weight loss medications before initiating but was unable to get an appointment until April 19. Patient instructed to follow with lifestyle management and will follow up after her appointment with oncologist. No medications will be started today. We will get [facility] today. 05/06/2023: Weight 238.1, BMI 36.74. Patient congratulated on effort, continues to lose successful, steady weight with lifestyle modifications only. Encourage patient to continue with lifestyle modifications, but she is interested in potentially trying weight management medication. Did talk to her oncologist, who approved semaglutide. We will start 0.25 mg today. Educated on proper use, side effects. We will follow-up in 4 weeks. If experiencing undesirable side effects, patient will discontinue medication and continue with lifestyle modifications as she is having great success with that at this time. Patient thankful. 06/02/2023: Weight 231.7, BMI 35.75. Patient congratulated on effort, doing well overall, lack of exercise over the past month because she has been sick, treated with antibiotics for UTI/infection. Goal is to increase resistance training over the next month, as well as portion control, otherwise doing well, continue with semaglutide 0.25 mg 08/01/2023: Weight 225.5, BMI 34.79. Patient graduated an effort, continuing to lose slow, steady weight. Educated to continue with lifestyle modifications. Will continue semaglutide 0.5 mg, but will try to send Wegovy 1 mg through health insurance. 09/29/23: Weight 219.8, BMI 33.91. Patient congratulated on effort, losing slow, steady weight. Taking Wegovy 1 mg x 2 weeks, having some nausea, 2 episodes of vomiting, acid reflux, and lack of appetite. Will prescribe Zofran. Also having some concerns in regards to her bone density slightly declining. Educated on the importance of high-protein, resistance training, will cut Wegovy from 1 mg to 0.5 mg. She is aware of the national shortage, and she may have to switch back over to semaglutide 0.5 mg in office pending availability. 01/04/2024: Weight 218, BMI 33.64. Patient having some success with weight loss, body scan reviewed showing mostly fat loss, minimal muscle loss. Will increase Wegovy from 0.5 mg to 1 mg. Following up with my colleague on 02/08, and then with myself on 03/08. 02/09/24: Weight: 213 lb, BMI 32. Continue Wegovy 1 mg subcu weekly. Body composition scale shows muscle loss. Increase protein and consistent resistance training. Discussed importance of life style in conjuction with medication for effectiveness. Follow up with aPllavi Ramirez PA-C on 03/0804/18/2024: Weight 211, BMI 32.63. Patient's weight plateaued since last visit, but she was sick with pneumonia. Skipped 1 week of Wegovy, getting back on it. Requesting refill of Wegovy 1.0, and Zofran. Pleased with progress overall.Focusing on increasing protein. Resistance training 1 time weekly, walking her dog 2 days weekly. 07/19/2024: Weight 206, BMI 31.78. Patient feels like she has plateau'd on Wegovy 1 mg weekly, though she has not been exercising. Emphasized the importance of high protein diet and resistance training to prevent muscle loss and continue to lose weight. Continue Wegovy 1 mg weekly. Consider increasing to 1.7 mg at next visit. Follow up in 3-4 weeks. 08/18/2024: Weight 199, BMI 30. Patient congratulated on effort. Did have a norovirus last week, so diarrhea/vomiting but this is all resolved. She is very pleased that she officially is less than 200 pounds. Will continue with Wegovy 1 mg, follow-up in 6 weeks. Patient focusing on increasing protein and resistance training. 09/28/24: Weight 203, BMI 31. Will increase Wegovy to 1.7 mg. Discussed lifestyle modifications 11/07/2024: Weight 200.9, BMI 31. Congratulated on effort. She has lost fat mass and visceral adipose tissue while increasing muscle mass since last visit. Continue Wegovy 1.7 mg weekly. Continue lifestyle modifications. Follow-up in 6 weeks. 12/15/2024: Weight 194, BMI 30. Continuing to lose slow, steady weight but having nausea, and sometimes vomiting as a side effect of Wegovy 1.7 mg although she was at a plateau taking Wegovy 1 mg. Patient interested in switching to Zepbound. Will submit 2.5 mg of Zepbound to the pharmacy. Discussed proper use, side effects, insurance coverage, and prior authorization process.Scheduled for colonoscopy this Wednesday, therefore is holding off on GLP-1 at this time. 02/12/2025: Weight 200, BMI 30. Gained weight since last visit but in reviewing body scan, has maintained fat, and gained muscle. Continuing with high-protein. Patient is doing well with muscle gain. Increase Zepbound to 7.5 mg after she finishes her last 2 pens of Zepbound 5 mg. #History of breast cancer, in remission. Lymphedema on left side, educated to not take blood pressure on left side. Taking anastrozole 1 mg, BRCA negative.Oncologist states that semaglutide is safe to take with patient history #Restless leg: Taking gabapentin, educated on magnesium glycinate #Hypothyroidism: Taking Synthroid 200 mcg, follows with endocrinology. #Constipation: Educated on conservative treatment such as prune juice, hydration, exercise, as well as MiraLAX as needed etc. Total time spent today was 30 minutes of which greater than 50% was spent on coordinating and counseling Case discussed with collaborating physician Micheal Armstrong who reviewed the assessment and plan. Chart, medications, labs, vital signs reviewed. Dictation was accomplished with the use of [employer] voice recognition software, prone to medical misidentifications and grammatical errors. This is unintentional and the practitioner does try to identify and correct these, but some could still be present. Please do not hesitate to contact practitioner for clarification. All quetsions answered to patients satisfaction. Patient verbalized understanding of diagnosis and treatments explained. To call sooner prior to next visit it any questions/concerns arise. 02/12/2025 History of breast cancer (ICD-10 - Z85.3) Vanessa is a 49-year-old female who presents the office for weight management f/u. 02/11/2023: 252.3, BMI 38.93. Patient extensively educated on lifestyle modifications including high-protein foods, low carbohydrate snacks, healthy fats, sleep hygiene, stress reduction. Patient was provided with educational documentation regarding all of this. Did extensively educate on medications. She is going to talk to her oncologist about some options. In the meantime, we will order hemoglobin A1c, and insulin level. Patient will focus on lifestyle modifications. Looking to lose weight to potentially get cosmetic surgery of her breast secondary to history of breast cancer. 03/16/23: Weight 243.8, BMI 37.62. Patient lost 9 lbs through lifestyle management since last visit. Congratulated patient on effort. Has been following a goal of 17,000 calories, 60 oz of water and 80 grams of protein a day. Starts her mornings off with a walk and exercises at the gym for 45 minutes on both Wednesday and Wednesday. Body composition scan reviewed today show a drop in weight, BMI, fat mass and muscle mass but an increase in visceral adipose tissue and waist circumference. Patient educated on importance of maintaining protein intake and incorporating strength/weight training into weekly routine to prevent further muscle loss. Patient was to discuss with oncologist weight loss medications before initiating but was unable to get an appointment until April 19. Patient instructed to follow with lifestyle management and will follow up after her appointment with oncologist. No medications will be started today. We will get [facility] today. 05/06/2023: Weight 238.1, BMI 36.74. Patient congratulated on effort, continues to lose successful, steady weight with lifestyle modifications only. Encourage patient to continue with lifestyle modifications, but she is interested in potentially trying weight management medication. Did talk to her oncologist, who approved semaglutide. We will start 0.25 mg today. Educated on proper use, side effects. We will follow-up in 4 weeks. If experiencing undesirable side effects, patient will discontinue medication and continue with lifestyle modifications as she is having great success with that at this time. Patient thankful. 06/02/2023: Weight 231.7, BMI 35.75. Patient congratulated on effort, doing well overall, lack of exercise over the past month because she has been sick, treated with antibiotics for UTI/infection. Goal is to increase resistance training over the next month, as well as portion control, otherwise doing well, continue with semaglutide 0.25 mg 08/01/2023: Weight 225.5, BMI 34.79. Patient graduated an effort, continuing to lose slow, steady weight. Educated to continue with lifestyle modifications. Will continue semaglutide 0.5 mg, but will try to send Wegovy 1 mg through health insurance. 09/29/23: Weight 219.8, BMI 33.91. Patient congratulated on effort, losing slow, steady weight. Taking Wegovy 1 mg x 2 weeks, having some nausea, 2 episodes of vomiting, acid reflux, and lack of appetite. Will prescribe Zofran. Also having some concerns in regards to her bone density slightly declining. Educated on the importance of high-protein, resistance training, will cut Wegovy from 1 mg to 0.5 mg. She is aware of the national shortage, and she may have to switch back over to semaglutide 0.5 mg in office pending availability. 01/04/2024: Weight 218, BMI 33.64. Patient having some success with weight loss, body scan reviewed showing mostly fat loss, minimal muscle loss. Will increase Wegovy from 0.5 mg to 1 mg. Following up with my colleague on 02/08, and then with myself on 03/08. 02/09/24: Weight: 213 lb, BMI 32. Continue Wegovy 1 mg subcu weekly. Body composition scale shows muscle loss. Increase protein and consistent resistance training. Discussed importance of life style in conjuction with medication for effectiveness. Follow up with Pallavi Ramirez PA-C on 03/0804/18/2024: Weight 211, BMI 32.63. Patient's weight plateaued since last visit, but she was sick with pneumonia. Skipped 1 week of Wegovy, getting back on it. Requesting refill of Wegovy 1.0, and Zofran. Pleased with progress overall.Focusing on increasing protein. Resistance training 1 time weekly, walking her dog 2 days weekly. 07/19/2024: Weight 206, BMI 31.78. Patient feels like she has plateau'd on Wegovy 1 mg weekly, though she has not been exercising. Emphasized the importance of high protein diet and resistance training to prevent muscle loss and continue to lose weight. Continue Wegovy 1 mg weekly. Consider increasing to 1.7 mg at next visit. Follow up in 3-4 weeks. 08/18/2024: Weight 199, BMI 30. Patient congratulated on effort. Did have a norovirus last week, so diarrhea/vomiting but this is all resolved. She is very pleased that she officially is less than 200 pounds. Will continue with Wegovy 1 mg, follow-up in 6 weeks. Patient focusing on increasing protein and resistance training. 09/28/24: Weight 203, BMI 31. Will increase Wegovy to 1.7 mg. Discussed lifestyle modifications 11/07/2024: Weight 200.9, BMI 31. Congratulated on effort. She has lost fat mass and visceral adipose tissue while increasing muscle mass since last visit. Continue Wegovy 1.7 mg weekly. Continue lifestyle modifications. Follow-up in 6 weeks. 12/15/2024: Weight 194, BMI 30. Continuing to lose slow, steady weight but having nausea, and sometimes vomiting as a side effect of Wegovy 1.7 mg although she was at a plateau taking Wegovy 1 mg. Patient interested in switching to Zepbound. Will submit 2.5 mg of Zepbound to the pharmacy. Discussed proper use, side effects, insurance coverage, and prior authorization process.Scheduled for colonoscopy this Wednesday, therefore is holding off on GLP-1 at this time. 02/12/2025: Weight 200, BMI 30. Gained weight since last visit but in reviewing body scan, has maintained fat, and gained muscle. Continuing with high-protein. Patient is doing well with muscle gain. Increase Zepbound to 7.5 mg after she finishes her last 2 pens of Zepbound 5 mg. #History of breast cancer, in remission. Lymphedema on left side, educated to not take blood pressure on left side. Taking anastrozole 1 mg, BRCA negative.Oncologist states that semaglutide is safe to take with patient history #Restless leg: Taking gabapentin, educated on magnesium glycinate #Hypothyroidism: Taking Synthroid 200 mcg, follows with endocrinology. #Constipation: Educated on conservative treatment such as prune juice, hydration, exercise, as well as MiraLAX as needed etc. Total time spent today was 30 minutes of which greater than 50% was spent on coordinating and counseling Case discussed with collaborating physician Micheal Armstrong who reviewed the assessment and plan. Chart, medications, labs, vital signs reviewed. Dictation was accomplished with the use of [employer] voice recognition software, prone to medical misidentifications and grammatical errors. This is unintentional and the practitioner does try to identify and correct these, but some could still be present. Please do not hesitate to contact practitioner for clarification. All quetsions answered to patients satisfaction. Patient verbalized understanding of diagnosis and treatments explained. To call sooner prior to next visit it any questions/concerns arise. 12/19/2024 Restless leg (ICD-10 - G25.81) Vanessa is a 49-year-old female who presents the office for weight management f/u. 02/11/2023: 252.3, BMI 38.93. Patient extensively educated on lifestyle modifications including high-protein foods, low carbohydrate snacks, healthy fats, sleep hygiene, stress reduction. Patient was provided with educational documentation regarding all of this. Did extensively educate on medications. She is going to talk to her oncologist about some options. In the meantime, we will order hemoglobin A1c, and insulin level. Patient will focus on lifestyle modifications. Looking to lose weight to potentially get cosmetic surgery of her breast secondary to history of breast cancer. 03/16/23: Weight 243.8, BMI 37.62. Patient lost 9 lbs through lifestyle management since last visit. Congratulated patient on effort. Has been following a goal of 17,000 calories, 60 oz of water and 80 grams of protein a day. Starts her mornings off with a walk and exercises at the gym for 45 minutes on both Wednesday and Wednesday. Body composition scan reviewed today show a drop in weight, BMI, fat mass and muscle mass but an increase in visceral adipose tissue and waist circumference. Patient educated on importance of maintaining protein intake and incorporating strength/weight training into weekly routine to prevent further muscle loss. Patient was to discuss with oncologist weight loss medications before initiating but was unable to get an appointment until April 19. Patient instructed to follow with lifestyle management and will follow up after her appointment with oncologist. No medications will be started today. We will get [facility] today. 05/06/2023: Weight 238.1, BMI 36.74. Patient congratulated on effort, continues to lose successful, steady weight with lifestyle modifications only. Encourage patient to continue with lifestyle modifications, but she is interested in potentially trying weight management medication. Did talk to her oncologist, who approved semaglutide. We will start 0.25 mg today. Educated on proper use, side effects. We will follow-up in 4 weeks. If experiencing undesirable side effects, patient will discontinue medication and continue with lifestyle modifications as she is having great success with that at this time. Patient thankful. 06/02/2023: Weight 231.7, BMI 35.75. Patient congratulated on effort, doing well overall, lack of exercise over the past month because she has been sick, treated with antibiotics for UTI/infection. Goal is to increase resistance training over the next month, as well as portion control, otherwise doing well, continue with semaglutide 0.25 mg 08/01/2023: Weight 225.5, BMI 34.79. Patient graduated an effort, continuing to lose slow, steady weight. Educated to continue with lifestyle modifications. Will continue semaglutide 0.5 mg, but will try to send Wegovy 1 mg through health insurance. 09/29/23: Weight 219.8, BMI 33.91. Patient congratulated on effort, losing slow, steady weight. Taking Wegovy 1 mg x 2 weeks, having some nausea, 2 episodes of vomiting, acid reflux, and lack of appetite. Will prescribe Zofran. Also having some concerns in regards to her bone density slightly declining. Educated on the importance of high-protein, resistance training, will cut Wegovy from 1 mg to 0.5 mg. She is aware of the national shortage, and she may have to switch back over to semaglutide 0.5 mg in office pending availability. 01/04/2024: Weight 218, BMI 33.64. Patient having some success with weight loss, body scan reviewed showing mostly fat loss, minimal muscle loss. Will increase Wegovy from 0.5 mg to 1 mg. Following up with my colleague on 02/08, and then with myself on 03/08. 02/09/24: Weight: 213 lb, BMI 32. Continue Wegovy 1 mg subcu weekly. Body composition scale shows muscle loss. Increase protein and consistent resistance training. Discussed importance of life style in conjuction with medication for effectiveness. Follow up with Pallavi Ramirez PA-C on 03/0804/18/2024: Weight 211, BMI 32.63. Patient's weight plateaued since last visit, but she was sick with pneumonia. Skipped 1 week of Wegovy, getting back on it. Requesting refill of Wegovy 1.0, and Zofran. Pleased with progress overall.Focusing on increasing protein. Resistance training 1 time weekly, walking her dog 2 days weekly. 07/19/2024: Weight 206, BMI 31.78. Patient feels like she has plateau'd on Wegovy 1 mg weekly, though she has not been exercising. Emphasized the importance of high protein diet and resistance training to prevent muscle loss and continue to lose weight. Continue Wegovy 1 mg weekly. Consider increasing to 1.7 mg at next visit. Follow up in 3-4 weeks. 08/18/2024: Weight 199, BMI 30. Patient congratulated on effort. Did have a norovirus last week, so diarrhea/vomiting but this is all resolved. She is very pleased that she officially is less than 200 pounds. Will continue with Wegovy 1 mg, follow-up in 6 weeks. Patient focusing on increasing protein and resistance training. 09/28/24: Weight 203, BMI 31. Will increase Wegovy to 1.7 mg. Discussed lifestyle modifications 11/07/2024: Weight 200.9, BMI 31. Congratulated on effort. She has lost fat mass and visceral adipose tissue while increasing muscle mass since last visit. Continue Wegovy 1.7 mg weekly. Continue lifestyle modifications. Follow-up in 6 weeks. 12/15/2024: Weight 194, BMI 30. Continuing to lose slow, steady weight but having nausea, and sometimes vomiting as a side effect of Wegovy 1.7 mg although she was at a plateau taking Wegovy 1 mg. Patient interested in switching to Zepbound. Will submit 2.5 mg of Zepbound to the pharmacy. Discussed proper use, side effects, insurance coverage, and prior authorization process.Scheduled for colonoscopy this Wednesday, therefore is holding off on GLP-1 at this time. #History of breast cancer, in remission. Lymphedema on left side, educated to not take blood pressure on left side. Taking anastrozole 1 mg, BRCA negative.Oncologist states that semaglutide is safe to take with patient history #Restless leg: Taking gabapentin, educated on magnesium glycinate #Hypothyroidism: Taking Synthroid 200 mcg, follows with endocrinology. #Constipation: Educated on conservative treatment such as prune juice, hydration, exercise, as well as MiraLAX as needed etc. Total time spent today was 30 minutes of which greater than 50% was spent on coordinating and counseling Case discussed with collaborating physician Micheal Armstrong who reviewed the assessment and plan. Chart, medications, labs, vital signs reviewed. Dictation was accomplished with the use of [employer] voice recognition software, prone to medical misidentifications and grammatical errors. This is unintentional and the practitioner does try to identify and correct these, but some could still be present. Please do not hesitate to contact practitioner for clarification. All quetsions answered to patients satisfaction. Patient verbalized understanding of diagnosis and treatments explained. To call sooner prior to next visit it any questions/concerns arise. 11/07/2024 Restless leg (ICD-10 - G25.81) Vanessa is a 49-year-old female who presents the office for weight management f/u. 02/11/2023: 252.3, BMI 38.93. Patient extensively educated on lifestyle modifications including high-protein foods, low carbohydrate snacks, healthy fats, sleep hygiene, stress reduction. Patient was provided with educational documentation regarding all of this. Did extensively educate on medications. She is going to talk to her oncologist about some options. In the meantime, we will order hemoglobin A1c, and insulin level. Patient will focus on lifestyle modifications. Looking to lose weight to potentially get cosmetic surgery of her breast secondary to history of breast cancer. 03/16/23: Weight 243.8, BMI 37.62. Patient lost 9 lbs through lifestyle management since last visit. Congratulated patient on effort. Has been following a goal of 17,000 calories, 60 oz of water and 80 grams of protein a day. Starts her mornings off with a walk and exercises at the gym for 45 minutes on both Wednesday and Wednesday. Body composition scan reviewed today show a drop in weight, BMI, fat mass and muscle mass but an increase in visceral adipose tissue and waist circumference. Patient educated on importance of maintaining protein intake and incorporating strength/weight training into weekly routine to prevent further muscle loss. Patient was to discuss with oncologist weight loss medications before initiating but was unable to get an appointment until April 19. Patient instructed to follow with lifestyle management and will follow up after her appointment with oncologist. No medications will be started today. We will get [facility] today. 05/06/2023: Weight 238.1, BMI 36.74. Patient congratulated on effort, continues to lose successful, steady weight with lifestyle modifications only. Encourage patient to continue with lifestyle modifications, but she is interested in potentially trying weight management medication. Did talk to her oncologist, who approved semaglutide. We will start 0.25 mg today. Educated on proper use, side effects. We will follow-up in 4 weeks. If experiencing undesirable side effects, patient will discontinue medication and continue with lifestyle modifications as she is having great success with that at this time. Patient thankful. 06/02/2023: Weight 231.7, BMI 35.75. Patient congratulated on effort, doing well overall, lack of exercise over the past month because she has been sick, treated with antibiotics for UTI/infection. Goal is to increase resistance training over the next month, as well as portion control, otherwise doing well, continue with semaglutide 0.25 mg 08/01/2023: Weight 225.5, BMI 34.79. Patient graduated an effort, continuing to lose slow, steady weight. Educated to continue with lifestyle modifications. Will continue semaglutide 0.5 mg, but will try to send Wegovy 1 mg through health insurance. 09/29/23: Weight 219.8, BMI 33.91. Patient congratulated on effort, losing slow, steady weight. Taking Wegovy 1 mg x 2 weeks, having some nausea, 2 episodes of vomiting, acid reflux, and lack of appetite. Will prescribe Zofran. Also having some concerns in regards to her bone density slightly declining. Educated on the importance of high-protein, resistance training, will cut Wegovy from 1 mg to 0.5 mg. She is aware of the national shortage, and she may have to switch back over to semaglutide 0.5 mg in office pending availability. 01/04/2024: Weight 218, BMI 33.64. Patient having some success with weight loss, body scan reviewed showing mostly fat loss, minimal muscle loss. Will increase Wegovy from 0.5 mg to 1 mg. Following up with my colleague on 02/08, and then with myself on 03/08. 02/09/24: Weight: 213 lb, BMI 32. Continue Wegovy 1 mg subcu weekly. Body composition scale shows muscle loss. Increase protein and consistent resistance training. Discussed importance of life style in conjuction with medication for effectiveness. Follow up with Pallavi Ramirez PA-C on 03/0804/18/2024: Weight 211, BMI 32.63. Patient's weight plateaued since last visit, but she was sick with pneumonia. Skipped 1 week of Wegovy, getting back on it. Requesting refill of Wegovy 1.0, and Zofran. Pleased with progress overall.Focusing on increasing protein. Resistance training 1 time weekly, walking her dog 2 days weekly. 07/19/2024: Weight 206, BMI 31.78. Patient feels like she has plateau'd on Wegovy 1 mg weekly, though she has not been exercising. Emphasized the importance of high protein diet and resistance training to prevent muscle loss and continue to lose weight. Continue Wegovy 1 mg weekly. Consider increasing to 1.7 mg at next visit. Follow up in 3-4 weeks. 08/18/2024: Weight 199, BMI 30. Patient congratulated on effort. Did have a norovirus last week, so diarrhea/vomiting but this is all resolved. She is very pleased that she officially is less than 200 pounds. Will continue with Wegovy 1 mg, follow-up in 6 weeks. Patient focusing on increasing protein and resistance training. 09/28/24: Weight 203, BMI 31. Will increase Wegovy to 1.7 mg. Discussed lifestyle modifications 11/07/2024: Weight 200.9, BMI 31. Congratulated on effort. She has lost fat mass and visceral adipose tissue while increasing muscle mass since last visit. Continue Wegovy 1.7 mg weekly. Continue lifestyle modifications. Follow-up in 6 weeks. Schedule for mammogram and bone density in 4 weeks.Scheduled for colonoscopy September 2024 #History of breast cancer, in remission. Lymphedema on left side, educated to not take blood pressure on left side. Taking anastrozole 1 mg, BRCA negative.Oncologist states that semaglutide is safe to take with patient history #Restless leg: Taking gabapentin, educated on magnesium glycinate #Hypothyroidism: Taking Synthroid 200 mcg, follows with endocrinology. #Constipation: Educated on conservative treatment such as prune juice, hydration, exercise, as well as MiraLAX as needed etc. Total time spent today was 30 minutes of which greater than 50% was spent on coordinating and counseling Case discussed with collaborating physician Micheal Armstrong who reviewed the assessment and plan. Chart, medications, labs, vital signs reviewed. Dictation was accomplished with the use of [employer] voice recognition software, prone to medical misidentifications and grammatical errors. This is unintentional and the practitioner does try to identify and correct these, but some could still be present. Please do not hesitate to contact practitioner for clarification. All quetsions answered to patients satisfaction. Patient verbalized understanding of diagnosis and treatments explained. To call sooner prior to next visit it any questions/concerns arise. 08/18/2024 Hypothyroidism, unspecified type (ICD-10 - E03.9) Vansesa is a 49-year-old female who presents the office for weight management f/u. 02/11/2023: 252.3, BMI 38.93. Patient extensively educated on lifestyle modifications including high-protein foods, low carbohydrate snacks, healthy fats, sleep hygiene, stress reduction. Patient was provided with educational documentation regarding all of this. Did extensively educate on medications. She is going to talk to her oncologist about some options. In the meantime, we will order hemoglobin A1c, and insulin level. Patient will focus on lifestyle modifications. Looking to lose weight to potentially get cosmetic surgery of her breast secondary to history of breast cancer. 03/16/23: Weight 243.8, BMI 37.62. Patient lost 9 lbs through lifestyle management since last visit. Congratulated patient on effort. Has been following a goal of 17,000 calories, 60 oz of water and 80 grams of protein a day. Starts her mornings off with a walk and exercises at the gym for 45 minutes on both Wednesday and Wednesday. Body composition scan reviewed today show a drop in weight, BMI, fat mass and muscle mass but an increase in visceral adipose tissue and waist circumference. Patient educated on importance of maintaining protein intake and incorporating strength/weight training into weekly routine to prevent further muscle loss. Patient was to discuss with oncologist weight loss medications before initiating but was unable to get an appointment until April 19. Patient instructed to follow with lifestyle management and will follow up after her appointment with oncologist. No medications will be started today. We will get [facility] today. 05/06/2023: Weight 238.1, BMI 36.74. Patient congratulated on effort, continues to lose successful, steady weight with lifestyle modifications only. Encourage patient to continue with lifestyle modifications, but she is interested in potentially trying weight management medication. Did talk to her oncologist, who approved semaglutide. We will start 0.25 mg today. Educated on proper use, side effects. We will follow-up in 4 weeks. If experiencing undesirable side effects, patient will discontinue medication and continue with lifestyle modifications as she is having great success with that at this time. Patient thankful. 06/02/2023: Weight 231.7, BMI 35.75. Patient congratulated on effort, doing well overall, lack of exercise over the past month because she has been sick, treated with antibiotics for UTI/infection. Goal is to increase resistance training over the next month, as well as portion control, otherwise doing well, continue with semaglutide 0.25 mg 08/01/2023: Weight 225.5, BMI 34.79. Patient graduated an effort, continuing to lose slow, steady weight. Educated to continue with lifestyle modifications. Will continue semaglutide 0.5 mg, but will try to send Wegovy 1 mg through health insurance. 09/29/23: Weight 219.8, BMI 33.91. Patient congratulated on effort, losing slow, steady weight. Taking Wegovy 1 mg x 2 weeks, having some nausea, 2 episodes of vomiting, acid reflux, and lack of appetite. Will prescribe Zofran. Also having some concerns in regards to her bone density slightly declining. Educated on the importance of high-protein, resistance training, will cut Wegovy from 1 mg to 0.5 mg. She is aware of the national shortage, and she may have to switch back over to semaglutide 0.5 mg in office pending availability. 01/04/2024: Weight 218, BMI 33.64. Patient having some success with weight loss, body scan reviewed showing mostly fat loss, minimal muscle loss. Will increase Wegovy from 0.5 mg to 1 mg. Following up with my colleague on 02/08, and then with myself on 03/08. 02/09/24: Weight: 213 lb, BMI 32. Continue Wegovy 1 mg subcu weekly. Body composition scale shows muscle loss. Increase protein and consistent resistance training. Discussed importance of life style in conjuction with medication for effectiveness. Follow up with Pallavi Ramirez PA-C on 03/0804/18/2024: Weight 211, BMI 32.63. Patient's weight plateaued since last visit, but she was sick with pneumonia. Skipped 1 week of Wegovy, getting back on it. Requesting refill of Wegovy 1.0, and Zofran. Pleased with progress overall.Focusing on increasing protein. Resistance training 1 time weekly, walking her dog 2 days weekly. 07/19/2024: Weight 206, BMI 31.78. Patient feels like she has plateau'd on Wegovy 1 mg weekly, though she has not been exercising. Emphasized the importance of high protein diet and resistance training to prevent muscle loss and continue to lose weight. Continue Wegovy 1 mg weekly. Consider increasing to 1.7 mg at next visit. Follow up in 3-4 weeks. 08/18/2024: Weight 199, BMI 30. Patient congratulated on effort. Did have a norovirus last week, so diarrhea/vomiting but this is all resolved. She is very pleased that she officially is less than 200 pounds. Will continue with Wegovy 1 mg, follow-up in 6 weeks. Patient focusing on increasing protein and resistance training. Schedule for mammogram and bone density in 4 weeks.Scheduled for colonoscopy September 2024 #History of breast cancer, in remission. Lymphedema on left side, educated to not take blood pressure on left side. Taking anastrozole 1 mg, BRCA negative.Oncologist states that semaglutide is safe to take with patient history #Restless leg: Taking gabapentin, educated on magnesium glycinate #Hypothyroidism: Taking Synthroid 200 mcg, follows with endocrinology. #Constipation: Educated on conservative treatment such as prune juice, hydration, exercise, as well as MiraLAX as needed etc. Total time spent today was 30 minutes of which greater than 50% was spent on coordinating and counseling Case discussed with collaborating physician Micheal Armstrong who reviewed the assessment and plan. Chart, medications, labs, vital signs reviewed. Dictation was accomplished with the use of [employer] voice recognition software, prone to medical misidentifications and grammatical errors. This is unintentional and the practitioner does try to identify and correct these, but some could still be present. Please do not hesitate to contact practitioner for clarification. All quetsions answered to patients satisfaction. Patient verbalized understanding of diagnosis and treatments explained. To call sooner prior to next visit it any questions/concerns arise. 09/28/2024 Hypothyroidism, unspecified type (ICD-10 - E03.9) Vanessa is a 49-year-old female who presents the office for weight management f/u. 02/11/2023: 252.3, BMI 38.93. Patient extensively educated on lifestyle modifications including high-protein foods, low carbohydrate snacks, healthy fats, sleep hygiene, stress reduction. Patient was provided with educational documentation regarding all of this. Did extensively educate on medications. She is going to talk to her oncologist about some options. In the meantime, we will order hemoglobin A1c, and insulin level. Patient will focus on lifestyle modifications. Looking to lose weight to potentially get cosmetic surgery of her breast secondary to history of breast cancer. 03/16/23: Weight 243.8, BMI 37.62. Patient lost 9 lbs through lifestyle management since last visit. Congratulated patient on effort. Has been following a goal of 17,000 calories, 60 oz of water and 80 grams of protein a day. Starts her mornings off with a walk and exercises at the gym for 45 minutes on both Wednesday and Wednesday. Body composition scan reviewed today show a drop in weight, BMI, fat mass and muscle mass but an increase in visceral adipose tissue and waist circumference. Patient educated on importance of maintaining protein intake and incorporating strength/weight training into weekly routine to prevent further muscle loss. Patient was to discuss with oncologist weight loss medications before initiating but was unable to get an appointment until April 19. Patient instructed to follow with lifestyle management and will follow up after her appointment with oncologist. No medications will be started today. We will get [facility] today. 05/06/2023: Weight 238.1, BMI 36.74. Patient congratulated on effort, continues to lose successful, steady weight with lifestyle modifications only. Encourage patient to continue with lifestyle modifications, but she is interested in potentially trying weight management medication. Did talk to her oncologist, who approved semaglutide. We will start 0.25 mg today. Educated on proper use, side effects. We will follow-up in 4 weeks. If experiencing undesirable side effects, patient will discontinue medication and continue with lifestyle modifications as she is having great success with that at this time. Patient thankful. 06/02/2023: Weight 231.7, BMI 35.75. Patient congratulated on effort, doing well overall, lack of exercise over the past month because she has been sick, treated with antibiotics for UTI/infection. Goal is to increase resistance training over the next month, as well as portion control, otherwise doing well, continue with semaglutide 0.25 mg 08/01/2023: Weight 225.5, BMI 34.79. Patient graduated an effort, continuing to lose slow, steady weight. Educated to continue with lifestyle modifications. Will continue semaglutide 0.5 mg, but will try to send Wegovy 1 mg through health insurance. 09/29/23: Weight 219.8, BMI 33.91. Patient congratulated on effort, losing slow, steady weight. Taking Wegovy 1 mg x 2 weeks, having some nausea, 2 episodes of vomiting, acid reflux, and lack of appetite. Will prescribe Zofran. Also having some concerns in regards to her bone density slightly declining. Educated on the importance of high-protein, resistance training, will cut Wegovy from 1 mg to 0.5 mg. She is aware of the national shortage, and she may have to switch back over to semaglutide 0.5 mg in office pending availability. 01/04/2024: Weight 218, BMI 33.64. Patient having some success with weight loss, body scan reviewed showing mostly fat loss, minimal muscle loss. Will increase Wegovy from 0.5 mg to 1 mg. Following up with my colleague on 02/08, and then with myself on 03/08. 02/09/24: Weight: 213 lb, BMI 32. Continue Wegovy 1 mg subcu weekly. Body composition scale shows muscle loss. Increase protein and consistent resistance training. Discussed importance of life style in conjuction with medication for effectiveness. Follow up with Pallavi Ramirez PA-C on 03/0804/18/2024: Weight 211, BMI 32.63. Patient's weight plateaued since last visit, but she was sick with pneumonia. Skipped 1 week of Wegovy, getting back on it. Requesting refill of Wegovy 1.0, and Zofran. Pleased with progress overall.Focusing on increasing protein. Resistance training 1 time weekly, walking her dog 2 days weekly. 07/19/2024: Weight 206, BMI 31.78. Patient feels like she has plateau'd on Wegovy 1 mg weekly, though she has not been exercising. Emphasized the importance of high protein diet and resistance training to prevent muscle loss and continue to lose weight. Continue Wegovy 1 mg weekly. Consider increasing to 1.7 mg at next visit. Follow up in 3-4 weeks. 08/18/2024: Weight 199, BMI 30. Patient congratulated on effort. Did have a norovirus last week, so diarrhea/vomiting but this is all resolved. She is very pleased that she officially is less than 200 pounds. Will continue with Wegovy 1 mg, follow-up in 6 weeks. Patient focusing on increasing protein and resistance training. 09/28/24: Weight 203, BMI 31. Will increase Wegovy to 1.7 mg. Discussed lifestyle modifications Schedule for mammogram and bone density in 4 weeks.Scheduled for colonoscopy September 2024 #History of breast cancer, in remission. Lymphedema on left side, educated to not take blood pressure on left side. Taking anastrozole 1 mg, BRCA negative.Oncologist states that semaglutide is safe to take with patient history #Restless leg: Taking gabapentin, educated on magnesium glycinate #Hypothyroidism: Taking Synthroid 200 mcg, follows with endocrinology. #Constipation: Educated on conservative treatment such as prune juice, hydration, exercise, as well as MiraLAX as needed etc. Total time spent today was 30 minutes of which greater than 50% was spent on coordinating and counseling Case discussed with collaborating physician Micheal Armstrong who reviewed the assessment and plan. Chart, medications, labs, vital signs reviewed. Dictation was accomplished with the use of [employer] voice recognition software, prone to medical misidentifications and grammatical errors. This is unintentional and the practitioner does try to identify and correct these, but some could still be present. Please do not hesitate to contact practitioner for clarification. All quetsions answered to patients satisfaction. Patient verbalized understanding of diagnosis and treatments explained. To call sooner prior to next visit it any questions/concerns arise. 04/18/2024 Hypothyroidism, unspecified type (ICD-10 - E03.9) Vanessa is a 47-year-old female who presents the office for weight management f/u. 02/11/2023:252.3, BMI 38.93. Patient extensively educated on lifestyle modifications including high-protein foods, low carbohydrate snacks, healthy fats, sleep hygiene, stress reduction. Patient was provided with educational documentation regarding all of this. Did extensively educate on medications. She is going to talk to her oncologist about some options. In the meantime, we will order hemoglobin A1c, and insulin level. Patient will focus on lifestyle modifications. Looking to lose weight to potentially get cosmetic surgery of her breast secondary to history of breast cancer. 03/16/23: Weight 243.8, BMI 37.62. Patient lost 9 lbs through lifestyle management since last visit. Congratulated patient on effort. Has been following a goal of 17,000 calories, 60 oz of water and 80 grams of protein a day. Starts her mornings off with a walk and exercises at the gym for 45 minutes on both Wednesday and Wednesday. Body composition scan reviewed today show a drop in weight, BMI, fat mass and muscle mass but an increase in visceral adipose tissue and waist circumference. Patient educated on importance of maintaining protein intake and incorporating strength/weight training into weekly routine to prevent further muscle loss. Patient was to discuss with oncologist weight loss medications before initiating but was unable to get an appointment until April 19. Patient instructed to follow with lifestyle management and will follow up after her appointment with oncologist. No medications will be started today. We will get [facility] today. 05/06/2023: Weight 238.1, BMI 36.74. Patient congratulated on effort, continues to lose successful, steady weight with lifestyle modifications only. Encourage patient to continue with lifestyle modifications, but she is interested in potentially trying weight management medication. Did talk to her oncologist, who approved semaglutide. We will start 0.25 mg today. Educated on proper use, side effects. We will follow-up in 4 weeks. If experiencing undesirable side effects, patient will discontinue medication and continue with lifestyle modifications as she is having great success with that at this time. Patient thankful. 06/02/2023: Weight 231.7, BMI 35.75. Patient congratulated on effort, doing well overall, lack of exercise over the past month because she has been sick, treated with antibiotics for UTI/infection. Goal is to increase resistance training over the next month, as well as portion control, otherwise doing well, continue with semaglutide 0.25 mg 08/01/2023: Weight 225.5, BMI 34.79. Patient graduated an effort, continuing to lose slow, steady weight. Educated to continue with lifestyle modifications. Will continue semaglutide 0.5 mg, but will try to send Wegovy 1 mg through health insurance. 09/29/23: Weight 219.8, BMI 33.91. Patient congratulated on effort, losing slow, steady weight. Taking Wegovy 1 mg x 2 weeks, having some nausea, 2 episodes of vomiting, acid reflux, and lack of appetite. Will prescribe Zofran. Also having some concerns in regards to her bone density slightly declining. Educated on the importance of high-protein, resistance training, will cut Wegovy from 1 mg to 0.5 mg. She is aware of the national shortage, and she may have to switch back over to semaglutide 0.5 mg in office pending availability. 01/04/2024: Weight 218, BMI 33.64. Patient having some success with weight loss, body scan reviewed showing mostly fat loss, minimal muscle loss. Will increase Wegovy from 0.5 mg to 1 mg. Following up with my colleague on 02/08, and then with myself on 03/08. 02/08/23: Weight: 213 lb, BMI 32. Continue Wegovy 1 mg subcu weekly. Body composition scale shows muscle loss. Increase protein and consistent resistance training. Discussed importance of life style in conjuction with medication for effectiveness. Follow up with Pallavi Ramirez PA-C on 03/0804/18/2024: Weight 211, BMI 32.63. Patient's weight plateaued since last visit, but she was sick with pneumonia. Skipped 1 week of Wegovy, getting back on it. Requesting refill of Wegovy 1.0, and Zofran. Pleased with progress overall.Focusing on increasing protein. Resistance training 1 time weekly, walking her dog 2 days weekly. #History of breast cancer, in remission. Lymphedema on left side, educated to not take blood pressure on left side. Taking anastrozole 1 mg, BRCA negative.Oncologist states that semaglutide is safe to take with patient history #Restless leg: Taking gabapentin, educated on magnesium glycinate #Hypothyroidism: Taking Synthroid 200 mcg, follows with endocrinology. #Constipation: Educated on conservative treatment such as prune juice, hydration, exercise, as well as MiraLAX as needed etc. Total time spent today was 30 minutes of which greater than 50% was spent on coordinating and counseling Case discussed with collaborating physician Micheal Armstrong who reviewed the assessment and plan. Chart, medications, labs, vital signs reviewed. Dictation was accomplished with the use of [employer] voice recognition software, prone to medical misidentifications and grammatical errors. This is unintentional and the practitioner does try to identify and correct these, but some could still be present. Please do not hesitate to contact practitioner for clarification. All quetsions answered to patients satisfaction. Patient verbalized understanding of diagnosis and treatments explained. To call sooner prior to next visit it any questions/concerns arise. 07/19/2024 Hypothyroidism, unspecified type (ICD-10 - E03.9) Vanessa is a 49-year-old female who presents the office for weight management f/u. 02/11/2023: 252.3, BMI 38.93. Patient extensively educated on lifestyle modifications including high-protein foods, low carbohydrate snacks, healthy fats, sleep hygiene, stress reduction. Patient was provided with educational documentation regarding all of this. Did extensively educate on medications. She is going to talk to her oncologist about some options. In the meantime, we will order hemoglobin A1c, and insulin level. Patient will focus on lifestyle modifications. Looking to lose weight to potentially get cosmetic surgery of her breast secondary to history of breast cancer. 03/16/23: Weight 243.8, BMI 37.62. Patient lost 9 lbs through lifestyle management since last visit. Congratulated patient on effort. Has been following a goal of 17,000 calories, 60 oz of water and 80 grams of protein a day. Starts her mornings off with a walk and exercises at the gym for 45 minutes on both Wednesday and Wednesday. Body composition scan reviewed today show a drop in weight, BMI, fat mass and muscle mass but an increase in visceral adipose tissue and waist circumference. Patient educated on importance of maintaining protein intake and incorporating strength/weight training into weekly routine to prevent further muscle loss. Patient was to discuss with oncologist weight loss medications before initiating but was unable to get an appointment until April 19. Patient instructed to follow with lifestyle management and will follow up after her appointment with oncologist. No medications will be started today. We will get [facility] today. 05/06/2023: Weight 238.1, BMI 36.74. Patient congratulated on effort, continues to lose successful, steady weight with lifestyle modifications only. Encourage patient to continue with lifestyle modifications, but she is interested in potentially trying weight management medication. Did talk to her oncologist, who approved semaglutide. We will start 0.25 mg today. Educated on proper use, side effects. We will follow-up in 4 weeks. If experiencing undesirable side effects, patient will discontinue medication and continue with lifestyle modifications as she is having great success with that at this time. Patient thankful. 06/02/2023: Weight 231.7, BMI 35.75. Patient congratulated on effort, doing well overall, lack of exercise over the past month because she has been sick, treated with antibiotics for UTI/infection. Goal is to increase resistance training over the next month, as well as portion control, otherwise doing well, continue with semaglutide 0.25 mg 08/01/2023: Weight 225.5, BMI 34.79. Patient graduated an effort, continuing to lose slow, steady weight. Educated to continue with lifestyle modifications. Will continue semaglutide 0.5 mg, but will try to send Wegovy 1 mg through health insurance. 09/29/23: Weight 219.8, BMI 33.91. Patient congratulated on effort, losing slow, steady weight. Taking Wegovy 1 mg x 2 weeks, having some nausea, 2 episodes of vomiting, acid reflux, and lack of appetite. Will prescribe Zofran. Also having some concerns in regards to her bone density slightly declining. Educated on the importance of high-protein, resistance training, will cut Wegovy from 1 mg to 0.5 mg. She is aware of the national shortage, and she may have to switch back over to semaglutide 0.5 mg in office pending availability. 01/04/2024: Weight 218, BMI 33.64. Patient having some success with weight loss, body scan reviewed showing mostly fat loss, minimal muscle loss. Will increase Wegovy from 0.5 mg to 1 mg. Following up with my colleague on 02/08, and then with myself on 03/08. 02/09/24: Weight: 213 lb, BMI 32. Continue Wegovy 1 mg subcu weekly. Body composition scale shows muscle loss. Increase protein and consistent resistance training. Discussed importance of life style in conjuction with medication for effectiveness. Follow up with Pallavi Ramirez PA-C on 03/0804/18/2024: Weight 211, BMI 32.63. Patient's weight plateaued since last visit, but she was sick with pneumonia. Skipped 1 week of Wegovy, getting back on it. Requesting refill of Wegovy 1.0, and Zofran. Pleased with progress overall.Focusing on increasing protein. Resistance training 1 time weekly, walking her dog 2 days weekly. 07/19/2024: Weight 206, BMI 31.78. Patient feels like she has plateau'd on Wegovy 1 mg weekly, though she has not been exercising. Emphasized the importance of high protein diet and resistance training to prevent muscle loss and continue to lose weight. Continue Wegovy 1 mg weekly. Consider increasing to 1.7 mg at next visit. Follow up in 3-4 weeks. #History of breast cancer, in remission. Lymphedema on left side, educated to not take blood pressure on left side. Taking anastrozole 1 mg, BRCA negative.Oncologist states that semaglutide is safe to take with patient history #Restless leg: Taking gabapentin, educated on magnesium glycinate #Hypothyroidism: Taking Synthroid 200 mcg, follows with endocrinology. #Constipation: Educated on conservative treatment such as prune juice, hydration, exercise, as well as MiraLAX as needed etc. Total time spent today was 30 minutes of which greater than 50% was spent on coordinating and counseling Case discussed with collaborating physician Micheal Armstrong who reviewed the assessment and plan. Chart, medications, labs, vital signs reviewed. Dictation was accomplished with the use of [employer] voice recognition software, prone to medical misidentifications and grammatical errors. This is unintentional and the practitioner does try to identify and correct these, but some could still be present. Please do not hesitate to contact practitioner for clarification. All quetsions answered to patients satisfaction. Patient verbalized understanding of diagnosis and treatments explained. To call sooner prior to next visit it any questions/concerns arise. 07/19/2024 Constipation by delayed colonic transit (ICD-10 - K59.01) Vanessa is a 49-year-old female who presents the office for weight management f/u. 02/11/2023: 252.3, BMI 38.93. Patient extensively educated on lifestyle modifications including high-protein foods, low carbohydrate snacks, healthy fats, sleep hygiene, stress reduction. Patient was provided with educational documentation regarding all of this. Did extensively educate on medications. She is going to talk to her oncologist about some options. In the meantime, we will order hemoglobin A1c, and insulin level. Patient will focus on lifestyle modifications. Looking to lose weight to potentially get cosmetic surgery of her breast secondary to history of breast cancer. 03/16/23: Weight 243.8, BMI 37.62. Patient lost 9 lbs through lifestyle management since last visit. Congratulated patient on effort. Has been following a goal of 17,000 calories, 60 oz of water and 80 grams of protein a day. Starts her mornings off with a walk and exercises at the gym for 45 minutes on both Wednesday and Wednesday. Body composition scan reviewed today show a drop in weight, BMI, fat mass and muscle mass but an increase in visceral adipose tissue and waist circumference. Patient educated on importance of maintaining protein intake and incorporating strength/weight training into weekly routine to prevent further muscle loss. Patient was to discuss with oncologist weight loss medications before initiating but was unable to get an appointment until April 19. Patient instructed to follow with lifestyle management and will follow up after her appointment with oncologist. No medications will be started today. We will get [facility] today. 05/06/2023: Weight 238.1, BMI 36.74. Patient congratulated on effort, continues to lose successful, steady weight with lifestyle modifications only. Encourage patient to continue with lifestyle modifications, but she is interested in potentially trying weight management medication. Did talk to her oncologist, who approved semaglutide. We will start 0.25 mg today. Educated on proper use, side effects. We will follow-up in 4 weeks. If experiencing undesirable side effects, patient will discontinue medication and continue with lifestyle modifications as she is having great success with that at this time. Patient thankful. 06/02/2023: Weight 231.7, BMI 35.75. Patient congratulated on effort, doing well overall, lack of exercise over the past month because she has been sick, treated with antibiotics for UTI/infection. Goal is to increase resistance training over the next month, as well as portion control, otherwise doing well, continue with semaglutide 0.25 mg 08/01/2023: Weight 225.5, BMI 34.79. Patient graduated an effort, continuing to lose slow, steady weight. Educated to continue with lifestyle modifications. Will continue semaglutide 0.5 mg, but will try to send Wegovy 1 mg through health insurance. 09/29/23: Weight 219.8, BMI 33.91. Patient congratulated on effort, losing slow, steady weight. Taking Wegovy 1 mg x 2 weeks, having some nausea, 2 episodes of vomiting, acid reflux, and lack of appetite. Will prescribe Zofran. Also having some concerns in regards to her bone density slightly declining. Educated on the importance of high-protein, resistance training, will cut Wegovy from 1 mg to 0.5 mg. She is aware of the national shortage, and she may have to switch back over to semaglutide 0.5 mg in office pending availability. 01/04/2024: Weight 218, BMI 33.64. Patient having some success with weight loss, body scan reviewed showing mostly fat loss, minimal muscle loss. Will increase Wegovy from 0.5 mg to 1 mg. Following up with my colleague on 02/08, and then with myself on 03/08. 02/09/24: Weight: 213 lb, BMI 32. Continue Wegovy 1 mg subcu weekly. Body composition scale shows muscle loss. Increase protein and consistent resistance training. Discussed importance of life style in conjuction with medication for effectiveness. Follow up with Pallavi Ramirez PA-C on 03/0804/18/2024: Weight 211, BMI 32.63. Patient's weight plateaued since last visit, but she was sick with pneumonia. Skipped 1 week of Wegovy, getting back on it. Requesting refill of Wegovy 1.0, and Zofran. Pleased with progress overall.Focusing on increasing protein. Resistance training 1 time weekly, walking her dog 2 days weekly. 07/19/2024: Weight 206, BMI 31.78. Patient feels like she has plateau'd on Wegovy 1 mg weekly, though she has not been exercising. Emphasized the importance of high protein diet and resistance training to prevent muscle loss and continue to lose weight. Continue Wegovy 1 mg weekly. Consider increasing to 1.7 mg at next visit. Follow up in 3-4 weeks. #History of breast cancer, in remission. Lymphedema on left side, educated to not take blood pressure on left side. Taking anastrozole 1 mg, BRCA negative.Oncologist states that semaglutide is safe to take with patient history #Restless leg: Taking gabapentin, educated on magnesium glycinate #Hypothyroidism: Taking Synthroid 200 mcg, follows with endocrinology. #Constipation: Educated on conservative treatment such as prune juice, hydration, exercise, as well as MiraLAX as needed etc. Total time spent today was 30 minutes of which greater than 50% was spent on coordinating and counseling Case discussed with collaborating physician Micheal Armstrong who reviewed the assessment and plan. Chart, medications, labs, vital signs reviewed. Dictation was accomplished with the use of [employer] voice recognition software, prone to medical misidentifications and grammatical errors. This is unintentional and the practitioner does try to identify and correct these, but some could still be present. Please do not hesitate to contact practitioner for clarification. All quetsions answered to patients satisfaction. Patient verbalized understanding of diagnosis and treatments explained. To call sooner prior to next visit it any questions/concerns arise. 04/18/2024 Constipation by delayed colonic transit (ICD-10 - K59.01) Vanessa is a 47-year-old female who presents the office for weight management f/u. 02/11/2023:252.3, BMI 38.93. Patient extensively educated on lifestyle modifications including high-protein foods, low carbohydrate snacks, healthy fats, sleep hygiene, stress reduction. Patient was provided with educational documentation regarding all of this. Did extensively educate on medications. She is going to talk to her oncologist about some options. In the meantime, we will order hemoglobin A1c, and insulin level. Patient will focus on lifestyle modifications. Looking to lose weight to potentially get cosmetic surgery of her breast secondary to history of breast cancer. 03/16/23: Weight 243.8, BMI 37.62. Patient lost 9 lbs through lifestyle management since last visit. Congratulated patient on effort. Has been following a goal of 17,000 calories, 60 oz of water and 80 grams of protein a day. Starts her mornings off with a walk and exercises at the gym for 45 minutes on both Wednesday and Wednesday. Body composition scan reviewed today show a drop in weight, BMI, fat mass and muscle mass but an increase in visceral adipose tissue and waist circumference. Patient educated on importance of maintaining protein intake and incorporating strength/weight training into weekly routine to prevent further muscle loss. Patient was to discuss with oncologist weight loss medications before initiating but was unable to get an appointment until April 19. Patient instructed to follow with lifestyle management and will follow up after her appointment with oncologist. No medications will be started today. We will get [facility] today. 05/06/2023: Weight 238.1, BMI 36.74. Patient congratulated on effort, continues to lose successful, steady weight with lifestyle modifications only. Encourage patient to continue with lifestyle modifications, but she is interested in potentially trying weight management medication. Did talk to her oncologist, who approved semaglutide. We will start 0.25 mg today. Educated on proper use, side effects. We will follow-up in 4 weeks. If experiencing undesirable side effects, patient will discontinue medication and continue with lifestyle modifications as she is having great success with that at this time. Patient thankful. 06/02/2023: Weight 231.7, BMI 35.75. Patient congratulated on effort, doing well overall, lack of exercise over the past month because she has been sick, treated with antibiotics for UTI/infection. Goal is to increase resistance training over the next month, as well as portion control, otherwise doing well, continue with semaglutide 0.25 mg 08/01/2023: Weight 225.5, BMI 34.79. Patient graduated an effort, continuing to lose slow, steady weight. Educated to continue with lifestyle modifications. Will continue semaglutide 0.5 mg, but will try to send Wegovy 1 mg through health insurance. 09/29/23: Weight 219.8, BMI 33.91. Patient congratulated on effort, losing slow, steady weight. Taking Wegovy 1 mg x 2 weeks, having some nausea, 2 episodes of vomiting, acid reflux, and lack of appetite. Will prescribe Zofran. Also having some concerns in regards to her bone density slightly declining. Educated on the importance of high-protein, resistance training, will cut Wegovy from 1 mg to 0.5 mg. She is aware of the national shortage, and she may have to switch back over to semaglutide 0.5 mg in office pending availability. 01/04/2024: Weight 218, BMI 33.64. Patient having some success with weight loss, body scan reviewed showing mostly fat loss, minimal muscle loss. Will increase Wegovy from 0.5 mg to 1 mg. Following up with my colleague on 02/08, and then with myself on 03/08. 02/08/23: Weight: 213 lb, BMI 32. Continue Wegovy 1 mg subcu weekly. Body composition scale shows muscle loss. Increase protein and consistent resistance training. Discussed importance of life style in conjuction with medication for effectiveness. Follow up with Pallavi Ramirez PA-C on 03/0804/18/2024: Weight 211, BMI 32.63. Patient's weight plateaued since last visit, but she was sick with pneumonia. Skipped 1 week of Wegovy, getting back on it. Requesting refill of Wegovy 1.0, and Zofran. Pleased with progress overall.Focusing on increasing protein. Resistance training 1 time weekly, walking her dog 2 days weekly. #History of breast cancer, in remission. Lymphedema on left side, educated to not take blood pressure on left side. Taking anastrozole 1 mg, BRCA negative.Oncologist states that semaglutide is safe to take with patient history #Restless leg: Taking gabapentin, educated on magnesium glycinate #Hypothyroidism: Taking Synthroid 200 mcg, follows with endocrinology. #Constipation: Educated on conservative treatment such as prune juice, hydration, exercise, as well as MiraLAX as needed etc. Total time spent today was 30 minutes of which greater than 50% was spent on coordinating and counseling Case discussed with collaborating physician Micheal Armstrong who reviewed the assessment and plan. Chart, medications, labs, vital signs reviewed. Dictation was accomplished with the use of [employer] voice recognition software, prone to medical misidentifications and grammatical errors. This is unintentional and the practitioner does try to identify and correct these, but some could still be present. Please do not hesitate to contact practitioner for clarification. All quetsions answered to patients satisfaction. Patient verbalized understanding of diagnosis and treatments explained. To call sooner prior to next visit it any questions/concerns arise. 08/18/2024 Constipation by delayed colonic transit (ICD-10 - K59.01) Vanessa is a 49-year-old female who presents the office for weight management f/u. 02/11/2023: 252.3, BMI 38.93. Patient extensively educated on lifestyle modifications including high-protein foods, low carbohydrate snacks, healthy fats, sleep hygiene, stress reduction. Patient was provided with educational documentation regarding all of this. Did extensively educate on medications. She is going to talk to her oncologist about some options. In the meantime, we will order hemoglobin A1c, and insulin level. Patient will focus on lifestyle modifications. Looking to lose weight to potentially get cosmetic surgery of her breast secondary to history of breast cancer. 03/16/23: Weight 243.8, BMI 37.62. Patient lost 9 lbs through lifestyle management since last visit. Congratulated patient on effort. Has been following a goal of 17,000 calories, 60 oz of water and 80 grams of protein a day. Starts her mornings off with a walk and exercises at the gym for 45 minutes on both Wednesday and Wednesday. Body composition scan reviewed today show a drop in weight, BMI, fat mass and muscle mass but an increase in visceral adipose tissue and waist circumference. Patient educated on importance of maintaining protein intake and incorporating strength/weight training into weekly routine to prevent further muscle loss. Patient was to discuss with oncologist weight loss medications before initiating but was unable to get an appointment until April 19. Patient instructed to follow with lifestyle management and will follow up after her appointment with oncologist. No medications will be started today. We will get [facility] today. 05/06/2023: Weight 238.1, BMI 36.74. Patient congratulated on effort, continues to lose successful, steady weight with lifestyle modifications only. Encourage patient to continue with lifestyle modifications, but she is interested in potentially trying weight management medication. Did talk to her oncologist, who approved semaglutide. We will start 0.25 mg today. Educated on proper use, side effects. We will follow-up in 4 weeks. If experiencing undesirable side effects, patient will discontinue medication and continue with lifestyle modifications as she is having great success with that at this time. Patient thankful. 06/02/2023: Weight 231.7, BMI 35.75. Patient congratulated on effort, doing well overall, lack of exercise over the past month because she has been sick, treated with antibiotics for UTI/infection. Goal is to increase resistance training over the next month, as well as portion control, otherwise doing well, continue with semaglutide 0.25 mg 08/01/2023: Weight 225.5, BMI 34.79. Patient graduated an effort, continuing to lose slow, steady weight. Educated to continue with lifestyle modifications. Will continue semaglutide 0.5 mg, but will try to send Wegovy 1 mg through health insurance. 09/29/23: Weight 219.8, BMI 33.91. Patient congratulated on effort, losing slow, steady weight. Taking Wegovy 1 mg x 2 weeks, having some nausea, 2 episodes of vomiting, acid reflux, and lack of appetite. Will prescribe Zofran. Also having some concerns in regards to her bone density slightly declining. Educated on the importance of high-protein, resistance training, will cut Wegovy from 1 mg to 0.5 mg. She is aware of the national shortage, and she may have to switch back over to semaglutide 0.5 mg in office pending availability. 01/04/2024: Weight 218, BMI 33.64. Patient having some success with weight loss, body scan reviewed showing mostly fat loss, minimal muscle loss. Will increase Wegovy from 0.5 mg to 1 mg. Following up with my colleague on 02/08, and then with myself on 03/08. 02/09/24: Weight: 213 lb, BMI 32. Continue Wegovy 1 mg subcu weekly. Body composition scale shows muscle loss. Increase protein and consistent resistance training. Discussed importance of life style in conjuction with medication for effectiveness. Follow up with Pallavi Ramirez PA-C on 03/0804/18/2024: Weight 211, BMI 32.63. Patient's weight plateaued since last visit, but she was sick with pneumonia. Skipped 1 week of Wegovy, getting back on it. Requesting refill of Wegovy 1.0, and Zofran. Pleased with progress overall.Focusing on increasing protein. Resistance training 1 time weekly, walking her dog 2 days weekly. 07/19/2024: Weight 206, BMI 31.78. Patient feels like she has plateau'd on Wegovy 1 mg weekly, though she has not been exercising. Emphasized the importance of high protein diet and resistance training to prevent muscle loss and continue to lose weight. Continue Wegovy 1 mg weekly. Consider increasing to 1.7 mg at next visit. Follow up in 3-4 weeks. 08/18/2024: Weight 199, BMI 30. Patient congratulated on effort. Did have a norovirus last week, so diarrhea/vomiting but this is all resolved. She is very pleased that she officially is less than 200 pounds. Will continue with Wegovy 1 mg, follow-up in 6 weeks. Patient focusing on increasing protein and resistance training. Schedule for mammogram and bone density in 4 weeks.Scheduled for colonoscopy September 2024 #History of breast cancer, in remission. Lymphedema on left side, educated to not take blood pressure on left side. Taking anastrozole 1 mg, BRCA negative.Oncologist states that semaglutide is safe to take with patient history #Restless leg: Taking gabapentin, educated on magnesium glycinate #Hypothyroidism: Taking Synthroid 200 mcg, follows with endocrinology. #Constipation: Educated on conservative treatment such as prune juice, hydration, exercise, as well as MiraLAX as needed etc. Total time spent today was 30 minutes of which greater than 50% was spent on coordinating and counseling Case discussed with collaborating physician Micheal Armstrogn who reviewed the assessment and plan. Chart, medications, labs, vital signs reviewed. Dictation was accomplished with the use of [employer] voice recognition software, prone to medical misidentifications and grammatical errors. This is unintentional and the practitioner does try to identify and correct these, but some could still be present. Please do not hesitate to contact practitioner for clarification. All quetsions answered to patients satisfaction. Patient verbalized understanding of diagnosis and treatments explained. To call sooner prior to next visit it any questions/concerns arise. 09/28/2024 Constipation by delayed colonic transit (ICD-10 - K59.01) Vanessa is a 49-year-old female who presents the office for weight management f/u. 02/11/2023: 252.3, BMI 38.93. Patient extensively educated on lifestyle modifications including high-protein foods, low carbohydrate snacks, healthy fats, sleep hygiene, stress reduction. Patient was provided with educational documentation regarding all of this. Did extensively educate on medications. She is going to talk to her oncologist about some options. In the meantime, we will order hemoglobin A1c, and insulin level. Patient will focus on lifestyle modifications. Looking to lose weight to potentially get cosmetic surgery of her breast secondary to history of breast cancer. 03/16/23: Weight 243.8, BMI 37.62. Patient lost 9 lbs through lifestyle management since last visit. Congratulated patient on effort. Has been following a goal of 17,000 calories, 60 oz of water and 80 grams of protein a day. Starts her mornings off with a walk and exercises at the gym for 45 minutes on both Wednesday and Wednesday. Body composition scan reviewed today show a drop in weight, BMI, fat mass and muscle mass but an increase in visceral adipose tissue and waist circumference. Patient educated on importance of maintaining protein intake and incorporating strength/weight training into weekly routine to prevent further muscle loss. Patient was to discuss with oncologist weight loss medications before initiating but was unable to get an appointment until April 19. Patient instructed to follow with lifestyle management and will follow up after her appointment with oncologist. No medications will be started today. We will get [facility] today. 05/06/2023: Weight 238.1, BMI 36.74. Patient congratulated on effort, continues to lose successful, steady weight with lifestyle modifications only. Encourage patient to continue with lifestyle modifications, but she is interested in potentially trying weight management medication. Did talk to her oncologist, who approved semaglutide. We will start 0.25 mg today. Educated on proper use, side effects. We will follow-up in 4 weeks. If experiencing undesirable side effects, patient will discontinue medication and continue with lifestyle modifications as she is having great success with that at this time. Patient thankful. 06/02/2023: Weight 231.7, BMI 35.75. Patient congratulated on effort, doing well overall, lack of exercise over the past month because she has been sick, treated with antibiotics for UTI/infection. Goal is to increase resistance training over the next month, as well as portion control, otherwise doing well, continue with semaglutide 0.25 mg 08/01/2023: Weight 225.5, BMI 34.79. Patient graduated an effort, continuing to lose slow, steady weight. Educated to continue with lifestyle modifications. Will continue semaglutide 0.5 mg, but will try to send Wegovy 1 mg through health insurance. 09/29/23: Weight 219.8, BMI 33.91. Patient congratulated on effort, losing slow, steady weight. Taking Wegovy 1 mg x 2 weeks, having some nausea, 2 episodes of vomiting, acid reflux, and lack of appetite. Will prescribe Zofran. Also having some concerns in regards to her bone density slightly declining. Educated on the importance of high-protein, resistance training, will cut Wegovy from 1 mg to 0.5 mg. She is aware of the national shortage, and she may have to switch back over to semaglutide 0.5 mg in office pending availability. 01/04/2024: Weight 218, BMI 33.64. Patient having some success with weight loss, body scan reviewed showing mostly fat loss, minimal muscle loss. Will increase Wegovy from 0.5 mg to 1 mg. Following up with my colleague on 02/08, and then with myself on 03/08. 02/09/24: Weight: 213 lb, BMI 32. Continue Wegovy 1 mg subcu weekly. Body composition scale shows muscle loss. Increase protein and consistent resistance training. Discussed importance of life style in conjuction with medication for effectiveness. Follow up with Pallavi Ramirez PA-C on 03/0804/18/2024: Weight 211, BMI 32.63. Patient's weight plateaued since last visit, but she was sick with pneumonia. Skipped 1 week of Wegovy, getting back on it. Requesting refill of Wegovy 1.0, and Zofran. Pleased with progress overall.Focusing on increasing protein. Resistance training 1 time weekly, walking her dog 2 days weekly. 07/19/2024: Weight 206, BMI 31.78. Patient feels like she has plateau'd on Wegovy 1 mg weekly, though she has not been exercising. Emphasized the importance of high protein diet and resistance training to prevent muscle loss and continue to lose weight. Continue Wegovy 1 mg weekly. Consider increasing to 1.7 mg at next visit. Follow up in 3-4 weeks. 08/18/2024: Weight 199, BMI 30. Patient congratulated on effort. Did have a norovirus last week, so diarrhea/vomiting but this is all resolved. She is very pleased that she officially is less than 200 pounds. Will continue with Wegovy 1 mg, follow-up in 6 weeks. Patient focusing on increasing protein and resistance training. 09/28/24: Weight 203, BMI 31. Will increase Wegovy to 1.7 mg. Discussed lifestyle modifications Schedule for mammogram and bone density in 4 weeks.Scheduled for colonoscopy September 2024 #History of breast cancer, in remission. Lymphedema on left side, educated to not take blood pressure on left side. Taking anastrozole 1 mg, BRCA negative.Oncologist states that semaglutide is safe to take with patient history #Restless leg: Taking gabapentin, educated on magnesium glycinate #Hypothyroidism: Taking Synthroid 200 mcg, follows with endocrinology. #Constipation: Educated on conservative treatment such as prune juice, hydration, exercise, as well as MiraLAX as needed etc. Total time spent today was 30 minutes of which greater than 50% was spent on coordinating and counseling Case discussed with collaborating physician Micheal Armstrong who reviewed the assessment and plan. Chart, medications, labs, vital signs reviewed. Dictation was accomplished with the use of [employer] voice recognition software, prone to medical misidentifications and grammatical errors. This is unintentional and the practitioner does try to identify and correct these, but some could still be present. Please do not hesitate to contact practitioner for clarification. All quetsions answered to patients satisfaction. Patient verbalized understanding of diagnosis and treatments explained. To call sooner prior to next visit it any questions/concerns arise. 11/07/2024 Hypothyroidism, unspecified type (ICD-10 - E03.9) Vanessa is a 49-year-old female who presents the office for weight management f/u. 02/11/2023: 252.3, BMI 38.93. Patient extensively educated on lifestyle modifications including high-protein foods, low carbohydrate snacks, healthy fats, sleep hygiene, stress reduction. Patient was provided with educational documentation regarding all of this. Did extensively educate on medications. She is going to talk to her oncologist about some options. In the meantime, we will order hemoglobin A1c, and insulin level. Patient will focus on lifestyle modifications. Looking to lose weight to potentially get cosmetic surgery of her breast secondary to history of breast cancer. 03/16/23: Weight 243.8, BMI 37.62. Patient lost 9 lbs through lifestyle management since last visit. Congratulated patient on effort. Has been following a goal of 17,000 calories, 60 oz of water and 80 grams of protein a day. Starts her mornings off with a walk and exercises at the gym for 45 minutes on both Wednesday and Wednesday. Body composition scan reviewed today show a drop in weight, BMI, fat mass and muscle mass but an increase in visceral adipose tissue and waist circumference. Patient educated on importance of maintaining protein intake and incorporating strength/weight training into weekly routine to prevent further muscle loss. Patient was to discuss with oncologist weight loss medications before initiating but was unable to get an appointment until April 19. Patient instructed to follow with lifestyle management and will follow up after her appointment with oncologist. No medications will be started today. We will get [facility] today. 05/06/2023: Weight 238.1, BMI 36.74. Patient congratulated on effort, continues to lose successful, steady weight with lifestyle modifications only. Encourage patient to continue with lifestyle modifications, but she is interested in potentially trying weight management medication. Did talk to her oncologist, who approved semaglutide. We will start 0.25 mg today. Educated on proper use, side effects. We will follow-up in 4 weeks. If experiencing undesirable side effects, patient will discontinue medication and continue with lifestyle modifications as she is having great success with that at this time. Patient thankful. 06/02/2023: Weight 231.7, BMI 35.75. Patient congratulated on effort, doing well overall, lack of exercise over the past month because she has been sick, treated with antibiotics for UTI/infection. Goal is to increase resistance training over the next month, as well as portion control, otherwise doing well, continue with semaglutide 0.25 mg 08/01/2023: Weight 225.5, BMI 34.79. Patient graduated an effort, continuing to lose slow, steady weight. Educated to continue with lifestyle modifications. Will continue semaglutide 0.5 mg, but will try to send Wegovy 1 mg through health insurance. 09/29/23: Weight 219.8, BMI 33.91. Patient congratulated on effort, losing slow, steady weight. Taking Wegovy 1 mg x 2 weeks, having some nausea, 2 episodes of vomiting, acid reflux, and lack of appetite. Will prescribe Zofran. Also having some concerns in regards to her bone density slightly declining. Educated on the importance of high-protein, resistance training, will cut Wegovy from 1 mg to 0.5 mg. She is aware of the national shortage, and she may have to switch back over to semaglutide 0.5 mg in office pending availability. 01/04/2024: Weight 218, BMI 33.64. Patient having some success with weight loss, body scan reviewed showing mostly fat loss, minimal muscle loss. Will increase Wegovy from 0.5 mg to 1 mg. Following up with my colleague on 02/08, and then with myself on 03/08. 02/09/24: Weight: 213 lb, BMI 32. Continue Wegovy 1 mg subcu weekly. Body composition scale shows muscle loss. Increase protein and consistent resistance training. Discussed importance of life style in conjuction with medication for effectiveness. Follow up with Pallavi Ramirez PA-C on 03/0804/18/2024: Weight 211, BMI 32.63. Patient's weight plateaued since last visit, but she was sick with pneumonia. Skipped 1 week of Wegovy, getting back on it. Requesting refill of Wegovy 1.0, and Zofran. Pleased with progress overall.Focusing on increasing protein. Resistance training 1 time weekly, walking her dog 2 days weekly. 07/19/2024: Weight 206, BMI 31.78. Patient feels like she has plateau'd on Wegovy 1 mg weekly, though she has not been exercising. Emphasized the importance of high protein diet and resistance training to prevent muscle loss and continue to lose weight. Continue Wegovy 1 mg weekly. Consider increasing to 1.7 mg at next visit. Follow up in 3-4 weeks. 08/18/2024: Weight 199, BMI 30. Patient congratulated on effort. Did have a norovirus last week, so diarrhea/vomiting but this is all resolved. She is very pleased that she officially is less than 200 pounds. Will continue with Wegovy 1 mg, follow-up in 6 weeks. Patient focusing on increasing protein and resistance training. 09/28/24: Weight 203, BMI 31. Will increase Wegovy to 1.7 mg. Discussed lifestyle modifications 11/07/2024: Weight 200.9, BMI 31. Congratulated on effort. She has lost fat mass and visceral adipose tissue while increasing muscle mass since last visit. Continue Wegovy 1.7 mg weekly. Continue lifestyle modifications. Follow-up in 6 weeks. Schedule for mammogram and bone density in 4 weeks.Scheduled for colonoscopy September 2024 #History of breast cancer, in remission. Lymphedema on left side, educated to not take blood pressure on left side. Taking anastrozole 1 mg, BRCA negative.Oncologist states that semaglutide is safe to take with patient history #Restless leg: Taking gabapentin, educated on magnesium glycinate #Hypothyroidism: Taking Synthroid 200 mcg, follows with endocrinology. #Constipation: Educated on conservative treatment such as prune juice, hydration, exercise, as well as MiraLAX as needed etc. Total time spent today was 30 minutes of which greater than 50% was spent on coordinating and counseling Case discussed with collaborating physician Micheal Armstrong who reviewed the assessment and plan. Chart, medications, labs, vital signs reviewed. Dictation was accomplished with the use of [employer] voice recognition software, prone to medical misidentifications and grammatical errors. This is unintentional and the practitioner does try to identify and correct these, but some could still be present. Please do not hesitate to contact practitioner for clarification. All quetsions answered to patients satisfaction. Patient verbalized understanding of diagnosis and treatments explained. To call sooner prior to next visit it any questions/concerns arise. 12/19/2024 Constipation by delayed colonic transit (ICD-10 - K59.01) Vanessa is a 49-year-old female who presents the office for weight management f/u. 02/11/2023: 252.3, BMI 38.93. Patient extensively educated on lifestyle modifications including high-protein foods, low carbohydrate snacks, healthy fats, sleep hygiene, stress reduction. Patient was provided with educational documentation regarding all of this. Did extensively educate on medications. She is going to talk to her oncologist about some options. In the meantime, we will order hemoglobin A1c, and insulin level. Patient will focus on lifestyle modifications. Looking to lose weight to potentially get cosmetic surgery of her breast secondary to history of breast cancer. 03/16/23: Weight 243.8, BMI 37.62. Patient lost 9 lbs through lifestyle management since last visit. Congratulated patient on effort. Has been following a goal of 17,000 calories, 60 oz of water and 80 grams of protein a day. Starts her mornings off with a walk and exercises at the gym for 45 minutes on both Wednesday and Wednesday. Body composition scan reviewed today show a drop in weight, BMI, fat mass and muscle mass but an increase in visceral adipose tissue and waist circumference. Patient educated on importance of maintaining protein intake and incorporating strength/weight training into weekly routine to prevent further muscle loss. Patient was to discuss with oncologist weight loss medications before initiating but was unable to get an appointment until April 19. Patient instructed to follow with lifestyle management and will follow up after her appointment with oncologist. No medications will be started today. We will get [facility] today. 05/06/2023: Weight 238.1, BMI 36.74. Patient congratulated on effort, continues to lose successful, steady weight with lifestyle modifications only. Encourage patient to continue with lifestyle modifications, but she is interested in potentially trying weight management medication. Did talk to her oncologist, who approved semaglutide. We will start 0.25 mg today. Educated on proper use, side effects. We will follow-up in 4 weeks. If experiencing undesirable side effects, patient will discontinue medication and continue with lifestyle modifications as she is having great success with that at this time. Patient thankful. 06/02/2023: Weight 231.7, BMI 35.75. Patient congratulated on effort, doing well overall, lack of exercise over the past month because she has been sick, treated with antibiotics for UTI/infection. Goal is to increase resistance training over the next month, as well as portion control, otherwise doing well, continue with semaglutide 0.25 mg 08/01/2023: Weight 225.5, BMI 34.79. Patient graduated an effort, continuing to lose slow, steady weight. Educated to continue with lifestyle modifications. Will continue semaglutide 0.5 mg, but will try to send Wegovy 1 mg through health insurance. 09/29/23: Weight 219.8, BMI 33.91. Patient congratulated on effort, losing slow, steady weight. Taking Wegovy 1 mg x 2 weeks, having some nausea, 2 episodes of vomiting, acid reflux, and lack of appetite. Will prescribe Zofran. Also having some concerns in regards to her bone density slightly declining. Educated on the importance of high-protein, resistance training, will cut Wegovy from 1 mg to 0.5 mg. She is aware of the national shortage, and she may have to switch back over to semaglutide 0.5 mg in office pending availability. 01/04/2024: Weight 218, BMI 33.64. Patient having some success with weight loss, body scan reviewed showing mostly fat loss, minimal muscle loss. Will increase Wegovy from 0.5 mg to 1 mg. Following up with my colleague on 02/08, and then with myself on 03/08. 02/09/24: Weight: 213 lb, BMI 32. Continue Wegovy 1 mg subcu weekly. Body composition scale shows muscle loss. Increase protein and consistent resistance training. Discussed importance of life style in conjuction with medication for effectiveness. Follow up with Pallavi Ramirez PA-C on 03/0804/18/2024: Weight 211, BMI 32.63. Patient's weight plateaued since last visit, but she was sick with pneumonia. Skipped 1 week of Wegovy, getting back on it. Requesting refill of Wegovy 1.0, and Zofran. Pleased with progress overall.Focusing on increasing protein. Resistance training 1 time weekly, walking her dog 2 days weekly. 07/19/2024: Weight 206, BMI 31.78. Patient feels like she has plateau'd on Wegovy 1 mg weekly, though she has not been exercising. Emphasized the importance of high protein diet and resistance training to prevent muscle loss and continue to lose weight. Continue Wegovy 1 mg weekly. Consider increasing to 1.7 mg at next visit. Follow up in 3-4 weeks. 08/18/2024: Weight 199, BMI 30. Patient congratulated on effort. Did have a norovirus last week, so diarrhea/vomiting but this is all resolved. She is very pleased that she officially is less than 200 pounds. Will continue with Wegovy 1 mg, follow-up in 6 weeks. Patient focusing on increasing protein and resistance training. 09/28/24: Weight 203, BMI 31. Will increase Wegovy to 1.7 mg. Discussed lifestyle modifications 11/07/2024: Weight 200.9, BMI 31. Congratulated on effort. She has lost fat mass and visceral adipose tissue while increasing muscle mass since last visit. Continue Wegovy 1.7 mg weekly. Continue lifestyle modifications. Follow-up in 6 weeks. 12/15/2024: Weight 194, BMI 30. Continuing to lose slow, steady weight but having nausea, and sometimes vomiting as a side effect of Wegovy 1.7 mg although she was at a plateau taking Wegovy 1 mg. Patient interested in switching to Zepbound. Will submit 2.5 mg of Zepbound to the pharmacy. Discussed proper use, side effects, insurance coverage, and prior authorization process.Scheduled for colonoscopy this Wednesday, therefore is holding off on GLP-1 at this time. #History of breast cancer, in remission. Lymphedema on left side, educated to not take blood pressure on left side. Taking anastrozole 1 mg, BRCA negative.Oncologist states that semaglutide is safe to take with patient history #Restless leg: Taking gabapentin, educated on magnesium glycinate #Hypothyroidism: Taking Synthroid 200 mcg, follows with endocrinology. #Constipation: Educated on conservative treatment such as prune juice, hydration, exercise, as well as MiraLAX as needed etc. Total time spent today was 30 minutes of which greater than 50% was spent on coordinating and counseling Case discussed with collaborating physician Micheal Armstrong who reviewed the assessment and plan. Chart, medications, labs, vital signs reviewed. Dictation was accomplished with the use of [employer] voice recognition software, prone to medical misidentifications and grammatical errors. This is unintentional and the practitioner does try to identify and correct these, but some could still be present. Please do not hesitate to contact practitioner for clarification. All quetsions answered to patients satisfaction. Patient verbalized understanding of diagnosis and treatments explained. To call sooner prior to next visit it any questions/concerns arise. 02/12/2025 Restless leg (ICD-10 - G25.81) Vanessa is a 49-year-old female who presents the office for weight management f/u. 02/11/2023: 252.3, BMI 38.93. Patient extensively educated on lifestyle modifications including high-protein foods, low carbohydrate snacks, healthy fats, sleep hygiene, stress reduction. Patient was provided with educational documentation regarding all of this. Did extensively educate on medications. She is going to talk to her oncologist about some options. In the meantime, we will order hemoglobin A1c, and insulin level. Patient will focus on lifestyle modifications. Looking to lose weight to potentially get cosmetic surgery of her breast secondary to history of breast cancer. 03/16/23: Weight 243.8, BMI 37.62. Patient lost 9 lbs through lifestyle management since last visit. Congratulated patient on effort. Has been following a goal of 17,000 calories, 60 oz of water and 80 grams of protein a day. Starts her mornings off with a walk and exercises at the gym for 45 minutes on both Wednesday and Wednesday. Body composition scan reviewed today show a drop in weight, BMI, fat mass and muscle mass but an increase in visceral adipose tissue and waist circumference. Patient educated on importance of maintaining protein intake and incorporating strength/weight training into weekly routine to prevent further muscle loss. Patient was to discuss with oncologist weight loss medications before initiating but was unable to get an appointment until April 19. Patient instructed to follow with lifestyle management and will follow up after her appointment with oncologist. No medications will be started today. We will get [facility] today. 05/06/2023: Weight 238.1, BMI 36.74. Patient congratulated on effort, continues to lose successful, steady weight with lifestyle modifications only. Encourage patient to continue with lifestyle modifications, but she is interested in potentially trying weight management medication. Did talk to her oncologist, who approved semaglutide. We will start 0.25 mg today. Educated on proper use, side effects. We will follow-up in 4 weeks. If experiencing undesirable side effects, patient will discontinue medication and continue with lifestyle modifications as she is having great success with that at this time. Patient thankful. 06/02/2023: Weight 231.7, BMI 35.75. Patient congratulated on effort, doing well overall, lack of exercise over the past month because she has been sick, treated with antibiotics for UTI/infection. Goal is to increase resistance training over the next month, as well as portion control, otherwise doing well, continue with semaglutide 0.25 mg 08/01/2023: Weight 225.5, BMI 34.79. Patient graduated an effort, continuing to lose slow, steady weight. Educated to continue with lifestyle modifications. Will continue semaglutide 0.5 mg, but will try to send Wegovy 1 mg through health insurance. 09/29/23: Weight 219.8, BMI 33.91. Patient congratulated on effort, losing slow, steady weight. Taking Wegovy 1 mg x 2 weeks, having some nausea, 2 episodes of vomiting, acid reflux, and lack of appetite. Will prescribe Zofran. Also having some concerns in regards to her bone density slightly declining. Educated on the importance of high-protein, resistance training, will cut Wegovy from 1 mg to 0.5 mg. She is aware of the national shortage, and she may have to switch back over to semaglutide 0.5 mg in office pending availability. 01/04/2024: Weight 218, BMI 33.64. Patient having some success with weight loss, body scan reviewed showing mostly fat loss, minimal muscle loss. Will increase Wegovy from 0.5 mg to 1 mg. Following up with my colleague on 02/08, and then with myself on 03/08. 02/09/24: Weight: 213 lb, BMI 32. Continue Wegovy 1 mg subcu weekly. Body composition scale shows muscle loss. Increase protein and consistent resistance training. Discussed importance of life style in conjuction with medication for effectiveness. Follow up with Pallavi Ramirez PA-C on 03/0804/18/2024: Weight 211, BMI 32.63. Patient's weight plateaued since last visit, but she was sick with pneumonia. Skipped 1 week of Wegovy, getting back on it. Requesting refill of Wegovy 1.0, and Zofran. Pleased with progress overall.Focusing on increasing protein. Resistance training 1 time weekly, walking her dog 2 days weekly. 07/19/2024: Weight 206, BMI 31.78. Patient feels like she has plateau'd on Wegovy 1 mg weekly, though she has not been exercising. Emphasized the importance of high protein diet and resistance training to prevent muscle loss and continue to lose weight. Continue Wegovy 1 mg weekly. Consider increasing to 1.7 mg at next visit. Follow up in 3-4 weeks. 08/18/2024: Weight 199, BMI 30. Patient congratulated on effort. Did have a norovirus last week, so diarrhea/vomiting but this is all resolved. She is very pleased that she officially is less than 200 pounds. Will continue with Wegovy 1 mg, follow-up in 6 weeks. Patient focusing on increasing protein and resistance training. 09/28/24: Weight 203, BMI 31. Will increase Wegovy to 1.7 mg. Discussed lifestyle modifications 11/07/2024: Weight 200.9, BMI 31. Congratulated on effort. She has lost fat mass and visceral adipose tissue while increasing muscle mass since last visit. Continue Wegovy 1.7 mg weekly. Continue lifestyle modifications. Follow-up in 6 weeks. 12/15/2024: Weight 194, BMI 30. Continuing to lose slow, steady weight but having nausea, and sometimes vomiting as a side effect of Wegovy 1.7 mg although she was at a plateau taking Wegovy 1 mg. Patient interested in switching to Zepbound. Will submit 2.5 mg of Zepbound to the pharmacy. Discussed proper use, side effects, insurance coverage, and prior authorization process.Scheduled for colonoscopy this Wednesday, therefore is holding off on GLP-1 at this time. 02/12/2025: Weight 200, BMI 30. Gained weight since last visit but in reviewing body scan, has maintained fat, and gained muscle. Continuing with high-protein. Patient is doing well with muscle gain. Increase Zepbound to 7.5 mg after she finishes her last 2 pens of Zepbound 5 mg. #History of breast cancer, in remission. Lymphedema on left side, educated to not take blood pressure on left side. Taking anastrozole 1 mg, BRCA negative.Oncologist states that semaglutide is safe to take with patient history #Restless leg: Taking gabapentin, educated on magnesium glycinate #Hypothyroidism: Taking Synthroid 200 mcg, follows with endocrinology. #Constipation: Educated on conservative treatment such as prune juice, hydration, exercise, as well as MiraLAX as needed etc. Total time spent today was 30 minutes of which greater than 50% was spent on coordinating and counseling Case discussed with collaborating physician Micheal Armstrong who reviewed the assessment and plan. Chart, medications, labs, vital signs reviewed. Dictation was accomplished with the use of [employer] voice recognition software, prone to medical misidentifications and grammatical errors. This is unintentional and the practitioner does try to identify and correct these, but some could still be present. Please do not hesitate to contact practitioner for clarification. All quetsions answered to patients satisfaction. Patient verbalized understanding of diagnosis and treatments explained. To call sooner prior to next visit it any questions/concerns arise. 02/12/2025 Constipation by delayed colonic transit (ICD-10 - K59.01) Vanessa is a 49-year-old female who presents the office for weight management f/u. 02/11/2023: 252.3, BMI 38.93. Patient extensively educated on lifestyle modifications including high-protein foods, low carbohydrate snacks, healthy fats, sleep hygiene, stress reduction. Patient was provided with educational documentation regarding all of this. Did extensively educate on medications. She is going to talk to her oncologist about some options. In the meantime, we will order hemoglobin A1c, and insulin level. Patient will focus on lifestyle modifications. Looking to lose weight to potentially get cosmetic surgery of her breast secondary to history of breast cancer. 03/16/23: Weight 243.8, BMI 37.62. Patient lost 9 lbs through lifestyle management since last visit. Congratulated patient on effort. Has been following a goal of 17,000 calories, 60 oz of water and 80 grams of protein a day. Starts her mornings off with a walk and exercises at the gym for 45 minutes on both Wednesday and Wednesday. Body composition scan reviewed today show a drop in weight, BMI, fat mass and muscle mass but an increase in visceral adipose tissue and waist circumference. Patient educated on importance of maintaining protein intake and incorporating strength/weight training into weekly routine to prevent further muscle loss. Patient was to discuss with oncologist weight loss medications before initiating but was unable to get an appointment until April 19. Patient instructed to follow with lifestyle management and will follow up after her appointment with oncologist. No medications will be started today. We will get [facility] today. 05/06/2023: Weight 238.1, BMI 36.74. Patient congratulated on effort, continues to lose successful, steady weight with lifestyle modifications only. Encourage patient to continue with lifestyle modifications, but she is interested in potentially trying weight management medication. Did talk to her oncologist, who approved semaglutide. We will start 0.25 mg today. Educated on proper use, side effects. We will follow-up in 4 weeks. If experiencing undesirable side effects, patient will discontinue medication and continue with lifestyle modifications as she is having great success with that at this time. Patient thankful. 06/02/2023: Weight 231.7, BMI 35.75. Patient congratulated on effort, doing well overall, lack of exercise over the past month because she has been sick, treated with antibiotics for UTI/infection. Goal is to increase resistance training over the next month, as well as portion control, otherwise doing well, continue with semaglutide 0.25 mg 08/01/2023: Weight 225.5, BMI 34.79. Patient graduated an effort, continuing to lose slow, steady weight. Educated to continue with lifestyle modifications. Will continue semaglutide 0.5 mg, but will try to send Wegovy 1 mg through health insurance. 09/29/23: Weight 219.8, BMI 33.91. Patient congratulated on effort, losing slow, steady weight. Taking Wegovy 1 mg x 2 weeks, having some nausea, 2 episodes of vomiting, acid reflux, and lack of appetite. Will prescribe Zofran. Also having some concerns in regards to her bone density slightly declining. Educated on the importance of high-protein, resistance training, will cut Wegovy from 1 mg to 0.5 mg. She is aware of the national shortage, and she may have to switch back over to semaglutide 0.5 mg in office pending availability. 01/04/2024: Weight 218, BMI 33.64. Patient having some success with weight loss, body scan reviewed showing mostly fat loss, minimal muscle loss. Will increase Wegovy from 0.5 mg to 1 mg. Following up with my colleague on 02/08, and then with myself on 03/08. 02/09/24: Weight: 213 lb, BMI 32. Continue Wegovy 1 mg subcu weekly. Body composition scale shows muscle loss. Increase protein and consistent resistance training. Discussed importance of life style in conjuction with medication for effectiveness. Follow up with Pallavi Ramirez PA-C on 03/0804/18/2024: Weight 211, BMI 32.63. Patient's weight plateaued since last visit, but she was sick with pneumonia. Skipped 1 week of Wegovy, getting back on it. Requesting refill of Wegovy 1.0, and Zofran. Pleased with progress overall.Focusing on increasing protein. Resistance training 1 time weekly, walking her dog 2 days weekly. 07/19/2024: Weight 206, BMI 31.78. Patient feels like she has plateau'd on Wegovy 1 mg weekly, though she has not been exercising. Emphasized the importance of high protein diet and resistance training to prevent muscle loss and continue to lose weight. Continue Wegovy 1 mg weekly. Consider increasing to 1.7 mg at next visit. Follow up in 3-4 weeks. 08/18/2024: Weight 199, BMI 30. Patient congratulated on effort. Did have a norovirus last week, so diarrhea/vomiting but this is all resolved. She is very pleased that she officially is less than 200 pounds. Will continue with Wegovy 1 mg, follow-up in 6 weeks. Patient focusing on increasing protein and resistance training. 09/28/24: Weight 203, BMI 31. Will increase Wegovy to 1.7 mg. Discussed lifestyle modifications 11/07/2024: Weight 200.9, BMI 31. Congratulated on effort. She has lost fat mass and visceral adipose tissue while increasing muscle mass since last visit. Continue Wegovy 1.7 mg weekly. Continue lifestyle modifications. Follow-up in 6 weeks. 12/15/2024: Weight 194, BMI 30. Continuing to lose slow, steady weight but having nausea, and sometimes vomiting as a side effect of Wegovy 1.7 mg although she was at a plateau taking Wegovy 1 mg. Patient interested in switching to Zepbound. Will submit 2.5 mg of Zepbound to the pharmacy. Discussed proper use, side effects, insurance coverage, and prior authorization process.Scheduled for colonoscopy this Wednesday, therefore is holding off on GLP-1 at this time. 02/12/2025: Weight 200, BMI 30. Gained weight since last visit but in reviewing body scan, has maintained fat, and gained muscle. Continuing with high-protein. Patient is doing well with muscle gain. Increase Zepbound to 7.5 mg after she finishes her last 2 pens of Zepbound 5 mg. #History of breast cancer, in remission. Lymphedema on left side, educated to not take blood pressure on left side. Taking anastrozole 1 mg, BRCA negative.Oncologist states that semaglutide is safe to take with patient history #Restless leg: Taking gabapentin, educated on magnesium glycinate #Hypothyroidism: Taking Synthroid 200 mcg, follows with endocrinology. #Constipation: Educated on conservative treatment such as prune juice, hydration, exercise, as well as MiraLAX as needed etc. Total time spent today was 30 minutes of which greater than 50% was spent on coordinating and counseling Case discussed with collaborating physician Micheal Armstrong who reviewed the assessment and plan. Chart, medications, labs, vital signs reviewed. Dictation was accomplished with the use of [employer] voice recognition software, prone to medical misidentifications and grammatical errors. This is unintentional and the practitioner does try to identify and correct these, but some could still be present. Please do not hesitate to contact practitioner for clarification. All quetsions answered to patients satisfaction. Patient verbalized understanding of diagnosis and treatments explained. To call sooner prior to next visit it any questions/concerns arise. 11/07/2024 Constipation by delayed colonic transit (ICD-10 - K59.01) Vanessa is a 49-year-old female who presents the office for weight management f/u. 02/11/2023: 252.3, BMI 38.93. Patient extensively educated on lifestyle modifications including high-protein foods, low carbohydrate snacks, healthy fats, sleep hygiene, stress reduction. Patient was provided with educational documentation regarding all of this. Did extensively educate on medications. She is going to talk to her oncologist about some options. In the meantime, we will order hemoglobin A1c, and insulin level. Patient will focus on lifestyle modifications. Looking to lose weight to potentially get cosmetic surgery of her breast secondary to history of breast cancer. 03/16/23: Weight 243.8, BMI 37.62. Patient lost 9 lbs through lifestyle management since last visit. Congratulated patient on effort. Has been following a goal of 17,000 calories, 60 oz of water and 80 grams of protein a day. Starts her mornings off with a walk and exercises at the gym for 45 minutes on both Wednesday and Wednesday. Body composition scan reviewed today show a drop in weight, BMI, fat mass and muscle mass but an increase in visceral adipose tissue and waist circumference. Patient educated on importance of maintaining protein intake and incorporating strength/weight training into weekly routine to prevent further muscle loss. Patient was to discuss with oncologist weight loss medications before initiating but was unable to get an appointment until April 19. Patient instructed to follow with lifestyle management and will follow up after her appointment with oncologist. No medications will be started today. We will get [facility] today. 05/06/2023: Weight 238.1, BMI 36.74. Patient congratulated on effort, continues to lose successful, steady weight with lifestyle modifications only. Encourage patient to continue with lifestyle modifications, but she is interested in potentially trying weight management medication. Did talk to her oncologist, who approved semaglutide. We will start 0.25 mg today. Educated on proper use, side effects. We will follow-up in 4 weeks. If experiencing undesirable side effects, patient will discontinue medication and continue with lifestyle modifications as she is having great success with that at this time. Patient thankful. 06/02/2023: Weight 231.7, BMI 35.75. Patient congratulated on effort, doing well overall, lack of exercise over the past month because she has been sick, treated with antibiotics for UTI/infection. Goal is to increase resistance training over the next month, as well as portion control, otherwise doing well, continue with semaglutide 0.25 mg 08/01/2023: Weight 225.5, BMI 34.79. Patient graduated an effort, continuing to lose slow, steady weight. Educated to continue with lifestyle modifications. Will continue semaglutide 0.5 mg, but will try to send Wegovy 1 mg through health insurance. 09/29/23: Weight 219.8, BMI 33.91. Patient congratulated on effort, losing slow, steady weight. Taking Wegovy 1 mg x 2 weeks, having some nausea, 2 episodes of vomiting, acid reflux, and lack of appetite. Will prescribe Zofran. Also having some concerns in regards to her bone density slightly declining. Educated on the importance of high-protein, resistance training, will cut Wegovy from 1 mg to 0.5 mg. She is aware of the national shortage, and she may have to switch back over to semaglutide 0.5 mg in office pending availability. 01/04/2024: Weight 218, BMI 33.64. Patient having some success with weight loss, body scan reviewed showing mostly fat loss, minimal muscle loss. Will increase Wegovy from 0.5 mg to 1 mg. Following up with my colleague on 02/08, and then with myself on 03/08. 02/09/24: Weight: 213 lb, BMI 32. Continue Wegovy 1 mg subcu weekly. Body composition scale shows muscle loss. Increase protein and consistent resistance training. Discussed importance of life style in conjuction with medication for effectiveness. Follow up with Pallavi Ramirez PA-C on 03/0804/18/2024: Weight 211, BMI 32.63. Patient's weight plateaued since last visit, but she was sick with pneumonia. Skipped 1 week of Wegovy, getting back on it. Requesting refill of Wegovy 1.0, and Zofran. Pleased with progress overall.Focusing on increasing protein. Resistance training 1 time weekly, walking her dog 2 days weekly. 07/19/2024: Weight 206, BMI 31.78. Patient feels like she has plateau'd on Wegovy 1 mg weekly, though she has not been exercising. Emphasized the importance of high protein diet and resistance training to prevent muscle loss and continue to lose weight. Continue Wegovy 1 mg weekly. Consider increasing to 1.7 mg at next visit. Follow up in 3-4 weeks. 08/18/2024: Weight 199, BMI 30. Patient congratulated on effort. Did have a norovirus last week, so diarrhea/vomiting but this is all resolved. She is very pleased that she officially is less than 200 pounds. Will continue with Wegovy 1 mg, follow-up in 6 weeks. Patient focusing on increasing protein and resistance training. 09/28/24: Weight 203, BMI 31. Will increase Wegovy to 1.7 mg. Discussed lifestyle modifications 11/07/2024: Weight 200.9, BMI 31. Congratulated on effort. She has lost fat mass and visceral adipose tissue while increasing muscle mass since last visit. Continue Wegovy 1.7 mg weekly. Continue lifestyle modifications. Follow-up in 6 weeks. Schedule for mammogram and bone density in 4 weeks.Scheduled for colonoscopy September 2024 #History of breast cancer, in remission. Lymphedema on left side, educated to not take blood pressure on left side. Taking anastrozole 1 mg, BRCA negative.Oncologist states that semaglutide is safe to take with patient history #Restless leg: Taking gabapentin, educated on magnesium glycinate #Hypothyroidism: Taking Synthroid 200 mcg, follows with endocrinology. #Constipation: Educated on conservative treatment such as prune juice, hydration, exercise, as well as MiraLAX as needed etc. Total time spent today was 30 minutes of which greater than 50% was spent on coordinating and counseling Case discussed with collaborating physician Micheal Armstrong who reviewed the assessment and plan. Chart, medications, labs, vital signs reviewed. Dictation was accomplished with the use of [employer] voice recognition software, prone to medical misidentifications and grammatical errors. This is unintentional and the practitioner does try to identify and correct these, but some could still be present. Please do not hesitate to contact practitioner for clarification. All quetsions answered to patients satisfaction. Patient verbalized understanding of diagnosis and treatments explained. To call sooner prior to next visit it any questions/concerns arise. 12/19/2024 Encounter for examination of blood pressure without abnormal findings (ICD-10 - Z01.30) Vanessa is a 49-year-old female who presents the office for weight management f/u. 02/11/2023: 252.3, BMI 38.93. Patient extensively educated on lifestyle modifications including high-protein foods, low carbohydrate snacks, healthy fats, sleep hygiene, stress reduction. Patient was provided with educational documentation regarding all of this. Did extensively educate on medications. She is going to talk to her oncologist about some options. In the meantime, we will order hemoglobin A1c, and insulin level. Patient will focus on lifestyle modifications. Looking to lose weight to potentially get cosmetic surgery of her breast secondary to history of breast cancer. 03/16/23: Weight 243.8, BMI 37.62. Patient lost 9 lbs through lifestyle management since last visit. Congratulated patient on effort. Has been following a goal of 17,000 calories, 60 oz of water and 80 grams of protein a day. Starts her mornings off with a walk and exercises at the gym for 45 minutes on both Wednesday and Wednesday. Body composition scan reviewed today show a drop in weight, BMI, fat mass and muscle mass but an increase in visceral adipose tissue and waist circumference. Patient educated on importance of maintaining protein intake and incorporating strength/weight training into weekly routine to prevent further muscle loss. Patient was to discuss with oncologist weight loss medications before initiating but was unable to get an appointment until April 19. Patient instructed to follow with lifestyle management and will follow up after her appointment with oncologist. No medications will be started today. We will get M [facility] today. 05/06/2023: Weight 238.1, BMI 36.74. Patient congratulated on effort, continues to lose successful, steady weight with lifestyle modifications only. Encourage patient to continue with lifestyle modifications, but she is interested in potentially trying weight management medication. Did talk to her oncologist, who approved semaglutide. We will start 0.25 mg today. Educated on proper use, side effects. We will follow-up in 4 weeks. If experiencing undesirable side effects, patient will discontinue medication and continue with lifestyle modifications as she is having great success with that at this time. Patient thankful. 06/02/2023: Weight 231.7, BMI 35.75. Patient congratulated on effort, doing well overall, lack of exercise over the past month because she has been sick, treated with antibiotics for UTI/infection. Goal is to increase resistance training over the next month, as well as portion control, otherwise doing well, continue with semaglutide 0.25 mg 08/01/2023: Weight 225.5, BMI 34.79. Patient graduated an effort, continuing to lose slow, steady weight. Educated to continue with lifestyle modifications. Will continue semaglutide 0.5 mg, but will try to send Wegovy 1 mg through health insurance. 09/29/23: Weight 219.8, BMI 33.91. Patient congratulated on effort, losing slow, steady weight. Taking Wegovy 1 mg x 2 weeks, having some nausea, 2 episodes of vomiting, acid reflux, and lack of appetite. Will prescribe Zofran. Also having some concerns in regards to her bone density slightly declining. Educated on the importance of high-protein, resistance training, will cut Wegovy from 1 mg to 0.5 mg. She is aware of the national shortage, and she may have to switch back over to semaglutide 0.5 mg in office pending availability. 01/04/2024: Weight 218, BMI 33.64. Patient having some success with weight loss, body scan reviewed showing mostly fat loss, minimal muscle loss. Will increase Wegovy from 0.5 mg to 1 mg. Following up with my colleague on 02/08, and then with myself on 03/08. 02/09/24: Weight: 213 lb, BMI 32. Continue Wegovy 1 mg subcu weekly. Body composition scale shows muscle loss. Increase protein and consistent resistance training. Discussed importance of life style in conjuction with medication for effectiveness. Follow up with Pallavi Ramirez PA-C on 03/0804/18/2024: Weight 211, BMI 32.63. Patient's weight plateaued since last visit, but she was sick with pneumonia. Skipped 1 week of Wegovy, getting back on it. Requesting refill of Wegovy 1.0, and Zofran. Pleased with progress overall.Focusing on increasing protein. Resistance training 1 time weekly, walking her dog 2 days weekly. 07/19/2024: Weight 206, BMI 31.78. Patient feels like she has plateau'd on Wegovy 1 mg weekly, though she has not been exercising. Emphasized the importance of high protein diet and resistance training to prevent muscle loss and continue to lose weight. Continue Wegovy 1 mg weekly. Consider increasing to 1.7 mg at next visit. Follow up in 3-4 weeks. 08/18/2024: Weight 199, BMI 30. Patient congratulated on effort. Did have a norovirus last week, so diarrhea/vomiting but this is all resolved. She is very pleased that she officially is less than 200 pounds. Will continue with Wegovy 1 mg, follow-up in 6 weeks. Patient focusing on increasing protein and resistance training. 09/28/24: Weight 203, BMI 31. Will increase Wegovy to 1.7 mg. Discussed lifestyle modifications 11/07/2024: Weight 200.9, BMI 31. Congratulated on effort. She has lost fat mass and visceral adipose tissue while increasing muscle mass since last visit. Continue Wegovy 1.7 mg weekly. Continue lifestyle modifications. Follow-up in 6 weeks. 12/15/2024: Weight 194, BMI 30. Continuing to lose slow, steady weight but having nausea, and sometimes vomiting as a side effect of Wegovy 1.7 mg although she was at a plateau taking Wegovy 1 mg. Patient interested in switching to Zepbound. Will submit 2.5 mg of Zepbound to the pharmacy. Discussed proper use, side effects, insurance coverage, and prior authorization process.Scheduled for colonoscopy this Wednesday, therefore is holding off on GLP-1 at this time. #History of breast cancer, in remission. Lymphedema on left side, educated to not take blood pressure on left side. Taking anastrozole 1 mg, BRCA negative.Oncologist states that semaglutide is safe to take with patient history #Restless leg: Taking gabapentin, educated on magnesium glycinate #Hypothyroidism: Taking Synthroid 200 mcg, follows with endocrinology. #Constipation: Educated on conservative treatment such as prune juice, hydration, exercise, as well as MiraLAX as needed etc. Total time spent today was 30 minutes of which greater than 50% was spent on coordinating and counseling Case discussed with collaborating physician Micheal Armstrong who reviewed the assessment and plan. Chart, medications, labs, vital signs reviewed. Dictation was accomplished with the use of [employer] voice recognition software, prone to medical misidentifications and grammatical errors. This is unintentional and the practitioner does try to identify and correct these, but some could still be present. Please do not hesitate to contact practitioner for clarification. All quetsions answered to patients satisfaction. Patient verbalized understanding of diagnosis and treatments explained. To call sooner prior to next visit it any questions/concerns arise. 09/28/2024 Nutritional counseling (ICD-10 - Z71.3) Vanessa is a 49-year-old female who presents the office for weight management f/u. 02/11/2023: 252.3, BMI 38.93. Patient extensively educated on lifestyle modifications including high-protein foods, low carbohydrate snacks, healthy fats, sleep hygiene, stress reduction. Patient was provided with educational documentation regarding all of this. Did extensively educate on medications. She is going to talk to her oncologist about some options. In the meantime, we will order hemoglobin A1c, and insulin level. Patient will focus on lifestyle modifications. Looking to lose weight to potentially get cosmetic surgery of her breast secondary to history of breast cancer. 03/16/23: Weight 243.8, BMI 37.62. Patient lost 9 lbs through lifestyle management since last visit. Congratulated patient on effort. Has been following a goal of 17,000 calories, 60 oz of water and 80 grams of protein a day. Starts her mornings off with a walk and exercises at the gym for 45 minutes on both Wednesday and Wednesday. Body composition scan reviewed today show a drop in weight, BMI, fat mass and muscle mass but an increase in visceral adipose tissue and waist circumference. Patient educated on importance of maintaining protein intake and incorporating strength/weight training into weekly routine to prevent further muscle loss. Patient was to discuss with oncologist weight loss medications before initiating but was unable to get an appointment until April 19. Patient instructed to follow with lifestyle management and will follow up after her appointment with oncologist. No medications will be started today. We will get [facility] today. 05/06/2023: Weight 238.1, BMI 36.74. Patient congratulated on effort, continues to lose successful, steady weight with lifestyle modifications only. Encourage patient to continue with lifestyle modifications, but she is interested in potentially trying weight management medication. Did talk to her oncologist, who approved semaglutide. We will start 0.25 mg today. Educated on proper use, side effects. We will follow-up in 4 weeks. If experiencing undesirable side effects, patient will discontinue medication and continue with lifestyle modifications as she is having great success with that at this time. Patient thankful. 06/02/2023: Weight 231.7, BMI 35.75. Patient congratulated on effort, doing well overall, lack of exercise over the past month because she has been sick, treated with antibiotics for UTI/infection. Goal is to increase resistance training over the next month, as well as portion control, otherwise doing well, continue with semaglutide 0.25 mg 08/01/2023: Weight 225.5, BMI 34.79. Patient graduated an effort, continuing to lose slow, steady weight. Educated to continue with lifestyle modifications. Will continue semaglutide 0.5 mg, but will try to send Wegovy 1 mg through health insurance. 09/29/23: Weight 219.8, BMI 33.91. Patient congratulated on effort, losing slow, steady weight. Taking Wegovy 1 mg x 2 weeks, having some nausea, 2 episodes of vomiting, acid reflux, and lack of appetite. Will prescribe Zofran. Also having some concerns in regards to her bone density slightly declining. Educated on the importance of high-protein, resistance training, will cut Wegovy from 1 mg to 0.5 mg. She is aware of the national shortage, and she may have to switch back over to semaglutide 0.5 mg in office pending availability. 01/04/2024: Weight 218, BMI 33.64. Patient having some success with weight loss, body scan reviewed showing mostly fat loss, minimal muscle loss. Will increase Wegovy from 0.5 mg to 1 mg. Following up with my colleague on 02/08, and then with myself on 03/08. 02/09/24: Weight: 213 lb, BMI 32. Continue Wegovy 1 mg subcu weekly. Body composition scale shows muscle loss. Increase protein and consistent resistance training. Discussed importance of life style in conjuction with medication for effectiveness. Follow up with Pallavi Ramirez PA-C on 03/0804/18/2024: Weight 211, BMI 32.63. Patient's weight plateaued since last visit, but she was sick with pneumonia. Skipped 1 week of Wegovy, getting back on it. Requesting refill of Wegovy 1.0, and Zofran. Pleased with progress overall.Focusing on increasing protein. Resistance training 1 time weekly, walking her dog 2 days weekly. 07/19/2024: Weight 206, BMI 31.78. Patient feels like she has plateau'd on Wegovy 1 mg weekly, though she has not been exercising. Emphasized the importance of high protein diet and resistance training to prevent muscle loss and continue to lose weight. Continue Wegovy 1 mg weekly. Consider increasing to 1.7 mg at next visit. Follow up in 3-4 weeks. 08/18/2024: Weight 199, BMI 30. Patient congratulated on effort. Did have a norovirus last week, so diarrhea/vomiting but this is all resolved. She is very pleased that she officially is less than 200 pounds. Will continue with Wegovy 1 mg, follow-up in 6 weeks. Patient focusing on increasing protein and resistance training. 09/28/24: Weight 203, BMI 31. Will increase Wegovy to 1.7 mg. Discussed lifestyle modifications Schedule for mammogram and bone density in 4 weeks.Scheduled for colonoscopy September 2024 #History of breast cancer, in remission. Lymphedema on left side, educated to not take blood pressure on left side. Taking anastrozole 1 mg, BRCA negative.Oncologist states that semaglutide is safe to take with patient history #Restless leg: Taking gabapentin, educated on magnesium glycinate #Hypothyroidism: Taking Synthroid 200 mcg, follows with endocrinology. #Constipation: Educated on conservative treatment such as prune juice, hydration, exercise, as well as MiraLAX as needed etc. Total time spent today was 30 minutes of which greater than 50% was spent on coordinating and counseling Case discussed with collaborating physician Micheal Armstrong who reviewed the assessment and plan. Chart, medications, labs, vital signs reviewed. Dictation was accomplished with the use of [employer] voice recognition software, prone to medical misidentifications and grammatical errors. This is unintentional and the practitioner does try to identify and correct these, but some could still be present. Please do not hesitate to contact practitioner for clarification. All quetsions answered to patients satisfaction. Patient verbalized understanding of diagnosis and treatments explained. To call sooner prior to next visit it any questions/concerns arise. 08/18/2024 Nutritional counseling (ICD-10 - Z71.3) Vanessa is a 49-year-old female who presents the office for weight management f/u. 02/11/2023: 252.3, BMI 38.93. Patient extensively educated on lifestyle modifications including high-protein foods, low carbohydrate snacks, healthy fats, sleep hygiene, stress reduction. Patient was provided with educational documentation regarding all of this. Did extensively educate on medications. She is going to talk to her oncologist about some options. In the meantime, we will order hemoglobin A1c, and insulin level. Patient will focus on lifestyle modifications. Looking to lose weight to potentially get cosmetic surgery of her breast secondary to history of breast cancer. 03/16/23: Weight 243.8, BMI 37.62. Patient lost 9 lbs through lifestyle management since last visit. Congratulated patient on effort. Has been following a goal of 17,000 calories, 60 oz of water and 80 grams of protein a day. Starts her mornings off with a walk and exercises at the gym for 45 minutes on both Wednesday and Wednesday. Body composition scan reviewed today show a drop in weight, BMI, fat mass and muscle mass but an increase in visceral adipose tissue and waist circumference. Patient educated on importance of maintaining protein intake and incorporating strength/weight training into weekly routine to prevent further muscle loss. Patient was to discuss with oncologist weight loss medications before initiating but was unable to get an appointment until April 19. Patient instructed to follow with lifestyle management and will follow up after her appointment with oncologist. No medications will be started today. We will get [facility] today. 05/06/2023: Weight 238.1, BMI 36.74. Patient congratulated on effort, continues to lose successful, steady weight with lifestyle modifications only. Encourage patient to continue with lifestyle modifications, but she is interested in potentially trying weight management medication. Did talk to her oncologist, who approved semaglutide. We will start 0.25 mg today. Educated on proper use, side effects. We will follow-up in 4 weeks. If experiencing undesirable side effects, patient will discontinue medication and continue with lifestyle modifications as she is having great success with that at this time. Patient thankful. 06/02/2023: Weight 231.7, BMI 35.75. Patient congratulated on effort, doing well overall, lack of exercise over the past month because she has been sick, treated with antibiotics for UTI/infection. Goal is to increase resistance training over the next month, as well as portion control, otherwise doing well, continue with semaglutide 0.25 mg 08/01/2023: Weight 225.5, BMI 34.79. Patient graduated an effort, continuing to lose slow, steady weight. Educated to continue with lifestyle modifications. Will continue semaglutide 0.5 mg, but will try to send Wegovy 1 mg through health insurance. 09/29/23: Weight 219.8, BMI 33.91. Patient congratulated on effort, losing slow, steady weight. Taking Wegovy 1 mg x 2 weeks, having some nausea, 2 episodes of vomiting, acid reflux, and lack of appetite. Will prescribe Zofran. Also having some concerns in regards to her bone density slightly declining. Educated on the importance of high-protein, resistance training, will cut Wegovy from 1 mg to 0.5 mg. She is aware of the national shortage, and she may have to switch back over to semaglutide 0.5 mg in office pending availability. 01/04/2024: Weight 218, BMI 33.64. Patient having some success with weight loss, body scan reviewed showing mostly fat loss, minimal muscle loss. Will increase Wegovy from 0.5 mg to 1 mg. Following up with my colleague on 02/08, and then with myself on 03/08. 02/09/24: Weight: 213 lb, BMI 32. Continue Wegovy 1 mg subcu weekly. Body composition scale shows muscle loss. Increase protein and consistent resistance training. Discussed importance of life style in conjuction with medication for effectiveness. Follow up with Pallavi Ramirez PA-C on 03/0804/18/2024: Weight 211, BMI 32.63. Patient's weight plateaued since last visit, but she was sick with pneumonia. Skipped 1 week of Wegovy, getting back on it. Requesting refill of Wegovy 1.0, and Zofran. Pleased with progress overall.Focusing on increasing protein. Resistance training 1 time weekly, walking her dog 2 days weekly. 07/19/2024: Weight 206, BMI 31.78. Patient feels like she has plateau'd on Wegovy 1 mg weekly, though she has not been exercising. Emphasized the importance of high protein diet and resistance training to prevent muscle loss and continue to lose weight. Continue Wegovy 1 mg weekly. Consider increasing to 1.7 mg at next visit. Follow up in 3-4 weeks. 08/18/2024: Weight 199, BMI 30. Patient congratulated on effort. Did have a norovirus last week, so diarrhea/vomiting but this is all resolved. She is very pleased that she officially is less than 200 pounds. Will continue with Wegovy 1 mg, follow-up in 6 weeks. Patient focusing on increasing protein and resistance training. Schedule for mammogram and bone density in 4 weeks.Scheduled for colonoscopy September 2024 #History of breast cancer, in remission. Lymphedema on left side, educated to not take blood pressure on left side. Taking anastrozole 1 mg, BRCA negative.Oncologist states that semaglutide is safe to take with patient history #Restless leg: Taking gabapentin, educated on magnesium glycinate #Hypothyroidism: Taking Synthroid 200 mcg, follows with endocrinology. #Constipation: Educated on conservative treatment such as prune juice, hydration, exercise, as well as MiraLAX as needed etc. Total time spent today was 30 minutes of which greater than 50% was spent on coordinating and counseling Case discussed with collaborating physician Micheal Armstrong who reviewed the assessment and plan. Chart, medications, labs, vital signs reviewed. Dictation was accomplished with the use of [employer] voice recognition software, prone to medical misidentifications and grammatical errors. This is unintentional and the practitioner does try to identify and correct these, but some could still be present. Please do not hesitate to contact practitioner for clarification. All quetsions answered to patients satisfaction. Patient verbalized understanding of diagnosis and treatments explained. To call sooner prior to next visit it any questions/concerns arise. 04/18/2024 Nutritional counseling (ICD-10 - Z71.3) Vanessa is a 47-year-old female who presents the office for weight management f/u. 02/11/2023:252.3, BMI 38.93. Patient extensively educated on lifestyle modifications including high-protein foods, low carbohydrate snacks, healthy fats, sleep hygiene, stress reduction. Patient was provided with educational documentation regarding all of this. Did extensively educate on medications. She is going to talk to her oncologist about some options. In the meantime, we will order hemoglobin A1c, and insulin level. Patient will focus on lifestyle modifications. Looking to lose weight to potentially get cosmetic surgery of her breast secondary to history of breast cancer. 03/16/23: Weight 243.8, BMI 37.62. Patient lost 9 lbs through lifestyle management since last visit. Congratulated patient on effort. Has been following a goal of 17,000 calories, 60 oz of water and 80 grams of protein a day. Starts her mornings off with a walk and exercises at the gym for 45 minutes on both Wednesday and Wednesday. Body composition scan reviewed today show a drop in weight, BMI, fat mass and muscle mass but an increase in visceral adipose tissue and waist circumference. Patient educated on importance of maintaining protein intake and incorporating strength/weight training into weekly routine to prevent further muscle loss. Patient was to discuss with oncologist weight loss medications before initiating but was unable to get an appointment until April 19. Patient instructed to follow with lifestyle management and will follow up after her appointment with oncologist. No medications will be started today. We will get [facility] today. 05/06/2023: Weight 238.1, BMI 36.74. Patient congratulated on effort, continues to lose successful, steady weight with lifestyle modifications only. Encourage patient to continue with lifestyle modifications, but she is interested in potentially trying weight management medication. Did talk to her oncologist, who approved semaglutide. We will start 0.25 mg today. Educated on proper use, side effects. We will follow-up in 4 weeks. If experiencing undesirable side effects, patient will discontinue medication and continue with lifestyle modifications as she is having great success with that at this time. Patient thankful. 06/02/2023: Weight 231.7, BMI 35.75. Patient congratulated on effort, doing well overall, lack of exercise over the past month because she has been sick, treated with antibiotics for UTI/infection. Goal is to increase resistance training over the next month, as well as portion control, otherwise doing well, continue with semaglutide 0.25 mg 08/01/2023: Weight 225.5, BMI 34.79. Patient graduated an effort, continuing to lose slow, steady weight. Educated to continue with lifestyle modifications. Will continue semaglutide 0.5 mg, but will try to send Wegovy 1 mg through health insurance. 09/29/23: Weight 219.8, BMI 33.91. Patient congratulated on effort, losing slow, steady weight. Taking Wegovy 1 mg x 2 weeks, having some nausea, 2 episodes of vomiting, acid reflux, and lack of appetite. Will prescribe Zofran. Also having some concerns in regards to her bone density slightly declining. Educated on the importance of high-protein, resistance training, will cut Wegovy from 1 mg to 0.5 mg. She is aware of the national shortage, and she may have to switch back over to semaglutide 0.5 mg in office pending availability. 01/04/2024: Weight 218, BMI 33.64. Patient having some success with weight loss, body scan reviewed showing mostly fat loss, minimal muscle loss. Will increase Wegovy from 0.5 mg to 1 mg. Following up with my colleague on 02/08, and then with myself on 03/08. 02/08/23: Weight: 213 lb, BMI 32. Continue Wegovy 1 mg subcu weekly. Body composition scale shows muscle loss. Increase protein and consistent resistance training. Discussed importance of life style in conjuction with medication for effectiveness. Follow up with Pallavi Ramirez PA-C on 03/0804/18/2024: Weight 211, BMI 32.63. Patient's weight plateaued since last visit, but she was sick with pneumonia. Skipped 1 week of Wegovy, getting back on it. Requesting refill of Wegovy 1.0, and Zofran. Pleased with progress overall.Focusing on increasing protein. Resistance training 1 time weekly, walking her dog 2 days weekly. #History of breast cancer, in remission. Lymphedema on left side, educated to not take blood pressure on left side. Taking anastrozole 1 mg, BRCA negative.Oncologist states that semaglutide is safe to take with patient history #Restless leg: Taking gabapentin, educated on magnesium glycinate #Hypothyroidism: Taking Synthroid 200 mcg, follows with endocrinology. #Constipation: Educated on conservative treatment such as prune juice, hydration, exercise, as well as MiraLAX as needed etc. Total time spent today was 30 minutes of which greater than 50% was spent on coordinating and counseling Case discussed with collaborating physician Micheal Armstrong who reviewed the assessment and plan. Chart, medications, labs, vital signs reviewed. Dictation was accomplished with the use of [employer] voice recognition software, prone to medical misidentifications and grammatical errors. This is unintentional and the practitioner does try to identify and correct these, but some could still be present. Please do not hesitate to contact practitioner for clarification. All quetsions answered to patients satisfaction. Patient verbalized understanding of diagnosis and treatments explained. To call sooner prior to next visit it any questions/concerns arise. 07/19/2024 Nutritional counseling (ICD-10 - Z71.3) Vanessa is a 49-year-old female who presents the office for weight management f/u. 02/11/2023: 252.3, BMI 38.93. Patient extensively educated on lifestyle modifications including high-protein foods, low carbohydrate snacks, healthy fats, sleep hygiene, stress reduction. Patient was provided with educational documentation regarding all of this. Did extensively educate on medications. She is going to talk to her oncologist about some options. In the meantime, we will order hemoglobin A1c, and insulin level. Patient will focus on lifestyle modifications. Looking to lose weight to potentially get cosmetic surgery of her breast secondary to history of breast cancer. 03/16/23: Weight 243.8, BMI 37.62. Patient lost 9 lbs through lifestyle management since last visit. Congratulated patient on effort. Has been following a goal of 17,000 calories, 60 oz of water and 80 grams of protein a day. Starts her mornings off with a walk and exercises at the gym for 45 minutes on both Wednesday and Wednesday. Body composition scan reviewed today show a drop in weight, BMI, fat mass and muscle mass but an increase in visceral adipose tissue and waist circumference. Patient educated on importance of maintaining protein intake and incorporating strength/weight training into weekly routine to prevent further muscle loss. Patient was to discuss with oncologist weight loss medications before initiating but was unable to get an appointment until April 19. Patient instructed to follow with lifestyle management and will follow up after her appointment with oncologist. No medications will be started today. We will get [facility] today. 05/06/2023: Weight 238.1, BMI 36.74. Patient congratulated on effort, continues to lose successful, steady weight with lifestyle modifications only. Encourage patient to continue with lifestyle modifications, but she is interested in potentially trying weight management medication. Did talk to her oncologist, who approved semaglutide. We will start 0.25 mg today. Educated on proper use, side effects. We will follow-up in 4 weeks. If experiencing undesirable side effects, patient will discontinue medication and continue with lifestyle modifications as she is having great success with that at this time. Patient thankful. 06/02/2023: Weight 231.7, BMI 35.75. Patient congratulated on effort, doing well overall, lack of exercise over the past month because she has been sick, treated with antibiotics for UTI/infection. Goal is to increase resistance training over the next month, as well as portion control, otherwise doing well, continue with semaglutide 0.25 mg 08/01/2023: Weight 225.5, BMI 34.79. Patient graduated an effort, continuing to lose slow, steady weight. Educated to continue with lifestyle modifications. Will continue semaglutide 0.5 mg, but will try to send Wegovy 1 mg through health insurance. 09/29/23: Weight 219.8, BMI 33.91. Patient congratulated on effort, losing slow, steady weight. Taking Wegovy 1 mg x 2 weeks, having some nausea, 2 episodes of vomiting, acid reflux, and lack of appetite. Will prescribe Zofran. Also having some concerns in regards to her bone density slightly declining. Educated on the importance of high-protein, resistance training, will cut Wegovy from 1 mg to 0.5 mg. She is aware of the national shortage, and she may have to switch back over to semaglutide 0.5 mg in office pending availability. 01/04/2024: Weight 218, BMI 33.64. Patient having some success with weight loss, body scan reviewed showing mostly fat loss, minimal muscle loss. Will increase Wegovy from 0.5 mg to 1 mg. Following up with my colleague on 02/08, and then with myself on 03/08. 02/09/24: Weight: 213 lb, BMI 32. Continue Wegovy 1 mg subcu weekly. Body composition scale shows muscle loss. Increase protein and consistent resistance training. Discussed importance of life style in conjuction with medication for effectiveness. Follow up with Pallavi Ramirez PA-C on 03/0804/18/2024: Weight 211, BMI 32.63. Patient's weight plateaued since last visit, but she was sick with pneumonia. Skipped 1 week of Wegovy, getting back on it. Requesting refill of Wegovy 1.0, and Zofran. Pleased with progress overall.Focusing on increasing protein. Resistance training 1 time weekly, walking her dog 2 days weekly. 07/19/2024: Weight 206, BMI 31.78. Patient feels like she has plateau'd on Wegovy 1 mg weekly, though she has not been exercising. Emphasized the importance of high protein diet and resistance training to prevent muscle loss and continue to lose weight. Continue Wegovy 1 mg weekly. Consider increasing to 1.7 mg at next visit. Follow up in 3-4 weeks. #History of breast cancer, in remission. Lymphedema on left side, educated to not take blood pressure on left side. Taking anastrozole 1 mg, BRCA negative.Oncologist states that semaglutide is safe to take with patient history #Restless leg: Taking gabapentin, educated on magnesium glycinate #Hypothyroidism: Taking Synthroid 200 mcg, follows with endocrinology. #Constipation: Educated on conservative treatment such as prune juice, hydration, exercise, as well as MiraLAX as needed etc. Total time spent today was 30 minutes of which greater than 50% was spent on coordinating and counseling Case discussed with collaborating physician Micheal Armstrong who reviewed the assessment and plan. Chart, medications, labs, vital signs reviewed. Dictation was accomplished with the use of [employer] voice recognition software, prone to medical misidentifications and grammatical errors. This is unintentional and the practitioner does try to identify and correct these, but some could still be present. Please do not hesitate to contact practitioner for clarification. All quetsions answered to patients satisfaction. Patient verbalized understanding of diagnosis and treatments explained. To call sooner prior to next visit it any questions/concerns arise. 11/07/2024 Encounter for examination of blood pressure without abnormal findings (ICD-10 - Z01.30) Vanessa is a 49-year-old female who presents the office for weight management f/u. 02/11/2023: 252.3, BMI 38.93. Patient extensively educated on lifestyle modifications including high-protein foods, low carbohydrate snacks, healthy fats, sleep hygiene, stress reduction. Patient was provided with educational documentation regarding all of this. Did extensively educate on medications. She is going to talk to her oncologist about some options. In the meantime, we will order hemoglobin A1c, and insulin level. Patient will focus on lifestyle modifications. Looking to lose weight to potentially get cosmetic surgery of her breast secondary to history of breast cancer. 03/16/23: Weight 243.8, BMI 37.62. Patient lost 9 lbs through lifestyle management since last visit. Congratulated patient on effort. Has been following a goal of 17,000 calories, 60 oz of water and 80 grams of protein a day. Starts her mornings off with a walk and exercises at the gym for 45 minutes on both Wednesday and Wednesday. Body composition scan reviewed today show a drop in weight, BMI, fat mass and muscle mass but an increase in visceral adipose tissue and waist circumference. Patient educated on importance of maintaining protein intake and incorporating strength/weight training into weekly routine to prevent further muscle loss. Patient was to discuss with oncologist weight loss medications before initiating but was unable to get an appointment until April 19. Patient instructed to follow with lifestyle management and will follow up after her appointment with oncologist. No medications will be started today. We will get [facility] today. 05/06/2023: Weight 238.1, BMI 36.74. Patient congratulated on effort, continues to lose successful, steady weight with lifestyle modifications only. Encourage patient to continue with lifestyle modifications, but she is interested in potentially trying weight management medication. Did talk to her oncologist, who approved semaglutide. We will start 0.25 mg today. Educated on proper use, side effects. We will follow-up in 4 weeks. If experiencing undesirable side effects, patient will discontinue medication and continue with lifestyle modifications as she is having great success with that at this time. Patient thankful. 06/02/2023: Weight 231.7, BMI 35.75. Patient congratulated on effort, doing well overall, lack of exercise over the past month because she has been sick, treated with antibiotics for UTI/infection. Goal is to increase resistance training over the next month, as well as portion control, otherwise doing well, continue with semaglutide 0.25 mg 08/01/2023: Weight 225.5, BMI 34.79. Patient graduated an effort, continuing to lose slow, steady weight. Educated to continue with lifestyle modifications. Will continue semaglutide 0.5 mg, but will try to send Wegovy 1 mg through health insurance. 09/29/23: Weight 219.8, BMI 33.91. Patient congratulated on effort, losing slow, steady weight. Taking Wegovy 1 mg x 2 weeks, having some nausea, 2 episodes of vomiting, acid reflux, and lack of appetite. Will prescribe Zofran. Also having some concerns in regards to her bone density slightly declining. Educated on the importance of high-protein, resistance training, will cut Wegovy from 1 mg to 0.5 mg. She is aware of the national shortage, and she may have to switch back over to semaglutide 0.5 mg in office pending availability. 01/04/2024: Weight 218, BMI 33.64. Patient having some success with weight loss, body scan reviewed showing mostly fat loss, minimal muscle loss. Will increase Wegovy from 0.5 mg to 1 mg. Following up with my colleague on 02/08, and then with myself on 03/08. 02/09/24: Weight: 213 lb, BMI 32. Continue Wegovy 1 mg subcu weekly. Body composition scale shows muscle loss. Increase protein and consistent resistance training. Discussed importance of life style in conjuction with medication for effectiveness. Follow up with Pallavi Ramirez PA-C on 03/0804/18/2024: Weight 211, BMI 32.63. Patient's weight plateaued since last visit, but she was sick with pneumonia. Skipped 1 week of Wegovy, getting back on it. Requesting refill of Wegovy 1.0, and Zofran. Pleased with progress overall.Focusing on increasing protein. Resistance training 1 time weekly, walking her dog 2 days weekly. 07/19/2024: Weight 206, BMI 31.78. Patient feels like she has plateau'd on Wegovy 1 mg weekly, though she has not been exercising. Emphasized the importance of high protein diet and resistance training to prevent muscle loss and continue to lose weight. Continue Wegovy 1 mg weekly. Consider increasing to 1.7 mg at next visit. Follow up in 3-4 weeks. 08/18/2024: Weight 199, BMI 30. Patient congratulated on effort. Did have a norovirus last week, so diarrhea/vomiting but this is all resolved. She is very pleased that she officially is less than 200 pounds. Will continue with Wegovy 1 mg, follow-up in 6 weeks. Patient focusing on increasing protein and resistance training. 09/28/24: Weight 203, BMI 31. Will increase Wegovy to 1.7 mg. Discussed lifestyle modifications 11/07/2024: Weight 200.9, BMI 31. Congratulated on effort. She has lost fat mass and visceral adipose tissue while increasing muscle mass since last visit. Continue Wegovy 1.7 mg weekly. Continue lifestyle modifications. Follow-up in 6 weeks. Schedule for mammogram and bone density in 4 weeks.Scheduled for colonoscopy September 2024 #History of breast cancer, in remission. Lymphedema on left side, educated to not take blood pressure on left side. Taking anastrozole 1 mg, BRCA negative.Oncologist states that semaglutide is safe to take with patient history #Restless leg: Taking gabapentin, educated on magnesium glycinate #Hypothyroidism: Taking Synthroid 200 mcg, follows with endocrinology. #Constipation: Educated on conservative treatment such as prune juice, hydration, exercise, as well as MiraLAX as needed etc. Total time spent today was 30 minutes of which greater than 50% was spent on coordinating and counseling Case discussed with collaborating physician Micheal Armstrong who reviewed the assessment and plan. Chart, medications, labs, vital signs reviewed. Dictation was accomplished with the use of [employer] voice recognition software, prone to medical misidentifications and grammatical errors. This is unintentional and the practitioner does try to identify and correct these, but some could still be present. Please do not hesitate to contact practitioner for clarification. All quetsions answered to patients satisfaction. Patient verbalized understanding of diagnosis and treatments explained. To call sooner prior to next visit it any questions/concerns arise. 12/19/2024 Acquired hypothyroidism (ICD-10 - E03.9) Vanessa is a 49-year-old female who presents the office for weight management f/u. 02/11/2023: 252.3, BMI 38.93. Patient extensively educated on lifestyle modifications including high-protein foods, low carbohydrate snacks, healthy fats, sleep hygiene, stress reduction. Patient was provided with educational documentation regarding all of this. Did extensively educate on medications. She is going to talk to her oncologist about some options. In the meantime, we will order hemoglobin A1c, and insulin level. Patient will focus on lifestyle modifications. Looking to lose weight to potentially get cosmetic surgery of her breast secondary to history of breast cancer. 03/16/23: Weight 243.8, BMI 37.62. Patient lost 9 lbs through lifestyle management since last visit. Congratulated patient on effort. Has been following a goal of 17,000 calories, 60 oz of water and 80 grams of protein a day. Starts her mornings off with a walk and exercises at the gym for 45 minutes on both Wednesday and Wednesday. Body composition scan reviewed today show a drop in weight, BMI, fat mass and muscle mass but an increase in visceral adipose tissue and waist circumference. Patient educated on importance of maintaining protein intake and incorporating strength/weight training into weekly routine to prevent further muscle loss. Patient was to discuss with oncologist weight loss medications before initiating but was unable to get an appointment until April 19. Patient instructed to follow with lifestyle management and will follow up after her appointment with oncologist. No medications will be started today. We will get [facility] today. 05/06/2023: Weight 238.1, BMI 36.74. Patient congratulated on effort, continues to lose successful, steady weight with lifestyle modifications only. Encourage patient to continue with lifestyle modifications, but she is interested in potentially trying weight management medication. Did talk to her oncologist, who approved semaglutide. We will start 0.25 mg today. Educated on proper use, side effects. We will follow-up in 4 weeks. If experiencing undesirable side effects, patient will discontinue medication and continue with lifestyle modifications as she is having great success with that at this time. Patient thankful. 06/02/2023: Weight 231.7, BMI 35.75. Patient congratulated on effort, doing well overall, lack of exercise over the past month because she has been sick, treated with antibiotics for UTI/infection. Goal is to increase resistance training over the next month, as well as portion control, otherwise doing well, continue with semaglutide 0.25 mg 08/01/2023: Weight 225.5, BMI 34.79. Patient graduated an effort, continuing to lose slow, steady weight. Educated to continue with lifestyle modifications. Will continue semaglutide 0.5 mg, but will try to send Wegovy 1 mg through health insurance. 09/29/23: Weight 219.8, BMI 33.91. Patient congratulated on effort, losing slow, steady weight. Taking Wegovy 1 mg x 2 weeks, having some nausea, 2 episodes of vomiting, acid reflux, and lack of appetite. Will prescribe Zofran. Also having some concerns in regards to her bone density slightly declining. Educated on the importance of high-protein, resistance training, will cut Wegovy from 1 mg to 0.5 mg. She is aware of the national shortage, and she may have to switch back over to semaglutide 0.5 mg in office pending availability. 01/04/2024: Weight 218, BMI 33.64. Patient having some success with weight loss, body scan reviewed showing mostly fat loss, minimal muscle loss. Will increase Wegovy from 0.5 mg to 1 mg. Following up with my colleague on 02/08, and then with myself on 03/08. 02/09/24: Weight: 213 lb, BMI 32. Continue Wegovy 1 mg subcu weekly. Body composition scale shows muscle loss. Increase protein and consistent resistance training. Discussed importance of life style in conjuction with medication for effectiveness. Follow up with Pallavi Ramirez PA-C on 03/0804/18/2024: Weight 211, BMI 32.63. Patient's weight plateaued since last visit, but she was sick with pneumonia. Skipped 1 week of Wegovy, getting back on it. Requesting refill of Wegovy 1.0, and Zofran. Pleased with progress overall.Focusing on increasing protein. Resistance training 1 time weekly, walking her dog 2 days weekly. 07/19/2024: Weight 206, BMI 31.78. Patient feels like she has plateau'd on Wegovy 1 mg weekly, though she has not been exercising. Emphasized the importance of high protein diet and resistance training to prevent muscle loss and continue to lose weight. Continue Wegovy 1 mg weekly. Consider increasing to 1.7 mg at next visit. Follow up in 3-4 weeks. 08/18/2024: Weight 199, BMI 30. Patient congratulated on effort. Did have a norovirus last week, so diarrhea/vomiting but this is all resolved. She is very pleased that she officially is less than 200 pounds. Will continue with Wegovy 1 mg, follow-up in 6 weeks. Patient focusing on increasing protein and resistance training. 09/28/24: Weight 203, BMI 31. Will increase Wegovy to 1.7 mg. Discussed lifestyle modifications 11/07/2024: Weight 200.9, BMI 31. Congratulated on effort. She has lost fat mass and visceral adipose tissue while increasing muscle mass since last visit. Continue Wegovy 1.7 mg weekly. Continue lifestyle modifications. Follow-up in 6 weeks. 12/15/2024: Weight 194, BMI 30. Continuing to lose slow, steady weight but having nausea, and sometimes vomiting as a side effect of Wegovy 1.7 mg although she was at a plateau taking Wegovy 1 mg. Patient interested in switching to Zepbound. Will submit 2.5 mg of Zepbound to the pharmacy. Discussed proper use, side effects, insurance coverage, and prior authorization process.Scheduled for colonoscopy this Wednesday, therefore is holding off on GLP-1 at this time. #History of breast cancer, in remission. Lymphedema on left side, educated to not take blood pressure on left side. Taking anastrozole 1 mg, BRCA negative.Oncologist states that semaglutide is safe to take with patient history #Restless leg: Taking gabapentin, educated on magnesium glycinate #Hypothyroidism: Taking Synthroid 200 mcg, follows with endocrinology. #Constipation: Educated on conservative treatment such as prune juice, hydration, exercise, as well as MiraLAX as needed etc. Total time spent today was 30 minutes of which greater than 50% was spent on coordinating and counseling Case discussed with collaborating physician Micheal Armstrong who reviewed the assessment and plan. Chart, medications, labs, vital signs reviewed. Dictation was accomplished with the use of [employer] voice recognition software, prone to medical misidentifications and grammatical errors. This is unintentional and the practitioner does try to identify and correct these, but some could still be present. Please do not hesitate to contact practitioner for clarification. All quetsions answered to patients satisfaction. Patient verbalized understanding of diagnosis and treatments explained. To call sooner prior to next visit it any questions/concerns arise. 02/12/2025 Encounter for examination of blood pressure without abnormal findings (ICD-10 - Z01.30) Vanessa is a 49-year-old female who presents the office for weight management f/u. 02/11/2023: 252.3, BMI 38.93. Patient extensively educated on lifestyle modifications including high-protein foods, low carbohydrate snacks, healthy fats, sleep hygiene, stress reduction. Patient was provided with educational documentation regarding all of this. Did extensively educate on medications. She is going to talk to her oncologist about some options. In the meantime, we will order hemoglobin A1c, and insulin level. Patient will focus on lifestyle modifications. Looking to lose weight to potentially get cosmetic surgery of her breast secondary to history of breast cancer. 03/16/23: Weight 243.8, BMI 37.62. Patient lost 9 lbs through lifestyle management since last visit. Congratulated patient on effort. Has been following a goal of 17,000 calories, 60 oz of water and 80 grams of protein a day. Starts her mornings off with a walk and exercises at the gym for 45 minutes on both Wednesday and Wednesday. Body composition scan reviewed today show a drop in weight, BMI, fat mass and muscle mass but an increase in visceral adipose tissue and waist circumference. Patient educated on importance of maintaining protein intake and incorporating strength/weight training into weekly routine to prevent further muscle loss. Patient was to discuss with oncologist weight loss medications before initiating but was unable to get an appointment until April 19. Patient instructed to follow with lifestyle management and will follow up after her appointment with oncologist. No medications will be started today. We will get [facility] today. 05/06/2023: Weight 238.1, BMI 36.74. Patient congratulated on effort, continues to lose successful, steady weight with lifestyle modifications only. Encourage patient to continue with lifestyle modifications, but she is interested in potentially trying weight management medication. Did talk to her oncologist, who approved semaglutide. We will start 0.25 mg today. Educated on proper use, side effects. We will follow-up in 4 weeks. If experiencing undesirable side effects, patient will discontinue medication and continue with lifestyle modifications as she is having great success with that at this time. Patient thankful. 06/02/2023: Weight 231.7, BMI 35.75. Patient congratulated on effort, doing well overall, lack of exercise over the past month because she has been sick, treated with antibiotics for UTI/infection. Goal is to increase resistance training over the next month, as well as portion control, otherwise doing well, continue with semaglutide 0.25 mg 08/01/2023: Weight 225.5, BMI 34.79. Patient graduated an effort, continuing to lose slow, steady weight. Educated to continue with lifestyle modifications. Will continue semaglutide 0.5 mg, but will try to send Wegovy 1 mg through health insurance. 09/29/23: Weight 219.8, BMI 33.91. Patient congratulated on effort, losing slow, steady weight. Taking Wegovy 1 mg x 2 weeks, having some nausea, 2 episodes of vomiting, acid reflux, and lack of appetite. Will prescribe Zofran. Also having some concerns in regards to her bone density slightly declining. Educated on the importance of high-protein, resistance training, will cut Wegovy from 1 mg to 0.5 mg. She is aware of the national shortage, and she may have to switch back over to semaglutide 0.5 mg in office pending availability. 01/04/2024: Weight 218, BMI 33.64. Patient having some success with weight loss, body scan reviewed showing mostly fat loss, minimal muscle loss. Will increase Wegovy from 0.5 mg to 1 mg. Following up with my colleague on 02/08, and then with myself on 03/08. 02/09/24: Weight: 213 lb, BMI 32. Continue Wegovy 1 mg subcu weekly. Body composition scale shows muscle loss. Increase protein and consistent resistance training. Discussed importance of life style in conjuction with medication for effectiveness. Follow up with Pallavi Ramirez PA-C on 03/0804/18/2024: Weight 211, BMI 32.63. Patient's weight plateaued since last visit, but she was sick with pneumonia. Skipped 1 week of Wegovy, getting back on it. Requesting refill of Wegovy 1.0, and Zofran. Pleased with progress overall.Focusing on increasing protein. Resistance training 1 time weekly, walking her dog 2 days weekly. 07/19/2024: Weight 206, BMI 31.78. Patient feels like she has plateau'd on Wegovy 1 mg weekly, though she has not been exercising. Emphasized the importance of high protein diet and resistance training to prevent muscle loss and continue to lose weight. Continue Wegovy 1 mg weekly. Consider increasing to 1.7 mg at next visit. Follow up in 3-4 weeks. 08/18/2024: Weight 199, BMI 30. Patient congratulated on effort. Did have a norovirus last week, so diarrhea/vomiting but this is all resolved. She is very pleased that she officially is less than 200 pounds. Will continue with Wegovy 1 mg, follow-up in 6 weeks. Patient focusing on increasing protein and resistance training. 09/28/24: Weight 203, BMI 31. Will increase Wegovy to 1.7 mg. Discussed lifestyle modifications 11/07/2024: Weight 200.9, BMI 31. Congratulated on effort. She has lost fat mass and visceral adipose tissue while increasing muscle mass since last visit. Continue Wegovy 1.7 mg weekly. Continue lifestyle modifications. Follow-up in 6 weeks. 12/15/2024: Weight 194, BMI 30. Continuing to lose slow, steady weight but having nausea, and sometimes vomiting as a side effect of Wegovy 1.7 mg although she was at a plateau taking Wegovy 1 mg. Patient interested in switching to Zepbound. Will submit 2.5 mg of Zepbound to the pharmacy. Discussed proper use, side effects, insurance coverage, and prior authorization process.Scheduled for colonoscopy this Wednesday, therefore is holding off on GLP-1 at this time. 02/12/2025: Weight 200, BMI 30. Gained weight since last visit but in reviewing body scan, has maintained fat, and gained muscle. Continuing with high-protein. Patient is doing well with muscle gain. Increase Zepbound to 7.5 mg after she finishes her last 2 pens of Zepbound 5 mg. #History of breast cancer, in remission. Lymphedema on left side, educated to not take blood pressure on left side. Taking anastrozole 1 mg, BRCA negative.Oncologist states that semaglutide is safe to take with patient history #Restless leg: Taking gabapentin, educated on magnesium glycinate #Hypothyroidism: Taking Synthroid 200 mcg, follows with endocrinology. #Constipation: Educated on conservative treatment such as prune juice, hydration, exercise, as well as MiraLAX as needed etc. Total time spent today was 30 minutes of which greater than 50% was spent on coordinating and counseling Case discussed with collaborating physician Micheal Armstrong who reviewed the assessment and plan. Chart, medications, labs, vital signs reviewed. Dictation was accomplished with the use of [employer] voice recognition software, prone to medical misidentifications and grammatical errors. This is unintentional and the practitioner does try to identify and correct these, but some could still be present. Please do not hesitate to contact practitioner for clarification. All quetsions answered to patients satisfaction. Patient verbalized understanding of diagnosis and treatments explained. To call sooner prior to next visit it any questions/concerns arise. 02/12/2025 Acquired hypothyroidism (ICD-10 - E03.9) Vanessa is a 49-year-old female who presents the office for weight management f/u. 02/11/2023: 252.3, BMI 38.93. Patient extensively educated on lifestyle modifications including high-protein foods, low carbohydrate snacks, healthy fats, sleep hygiene, stress reduction. Patient was provided with educational documentation regarding all of this. Did extensively educate on medications. She is going to talk to her oncologist about some options. In the meantime, we will order hemoglobin A1c, and insulin level. Patient will focus on lifestyle modifications. Looking to lose weight to potentially get cosmetic surgery of her breast secondary to history of breast cancer. 03/16/23: Weight 243.8, BMI 37.62. Patient lost 9 lbs through lifestyle management since last visit. Congratulated patient on effort. Has been following a goal of 17,000 calories, 60 oz of water and 80 grams of protein a day. Starts her mornings off with a walk and exercises at the gym for 45 minutes on both Wednesday and Wednesday. Body composition scan reviewed today show a drop in weight, BMI, fat mass and muscle mass but an increase in visceral adipose tissue and waist circumference. Patient educated on importance of maintaining protein intake and incorporating strength/weight training into weekly routine to prevent further muscle loss. Patient was to discuss with oncologist weight loss medications before initiating but was unable to get an appointment until April 19. Patient instructed to follow with lifestyle management and will follow up after her appointment with oncologist. No medications will be started today. We will get [facility] today. 05/06/2023: Weight 238.1, BMI 36.74. Patient congratulated on effort, continues to lose successful, steady weight with lifestyle modifications only. Encourage patient to continue with lifestyle modifications, but she is interested in potentially trying weight management medication. Did talk to her oncologist, who approved semaglutide. We will start 0.25 mg today. Educated on proper use, side effects. We will follow-up in 4 weeks. If experiencing undesirable side effects, patient will discontinue medication and continue with lifestyle modifications as she is having great success with that at this time. Patient thankful. 06/02/2023: Weight 231.7, BMI 35.75. Patient congratulated on effort, doing well overall, lack of exercise over the past month because she has been sick, treated with antibiotics for UTI/infection. Goal is to increase resistance training over the next month, as well as portion control, otherwise doing well, continue with semaglutide 0.25 mg 08/01/2023: Weight 225.5, BMI 34.79. Patient graduated an effort, continuing to lose slow, steady weight. Educated to continue with lifestyle modifications. Will continue semaglutide 0.5 mg, but will try to send Wegovy 1 mg through health insurance. 09/29/23: Weight 219.8, BMI 33.91. Patient congratulated on effort, losing slow, steady weight. Taking Wegovy 1 mg x 2 weeks, having some nausea, 2 episodes of vomiting, acid reflux, and lack of appetite. Will prescribe Zofran. Also having some concerns in regards to her bone density slightly declining. Educated on the importance of high-protein, resistance training, will cut Wegovy from 1 mg to 0.5 mg. She is aware of the national shortage, and she may have to switch back over to semaglutide 0.5 mg in office pending availability. 01/04/2024: Weight 218, BMI 33.64. Patient having some success with weight loss, body scan reviewed showing mostly fat loss, minimal muscle loss. Will increase Wegovy from 0.5 mg to 1 mg. Following up with my colleague on 02/08, and then with myself on 03/08. 02/09/24: Weight: 213 lb, BMI 32. Continue Wegovy 1 mg subcu weekly. Body composition scale shows muscle loss. Increase protein and consistent resistance training. Discussed importance of life style in conjuction with medication for effectiveness. Follow up with Pallavi Ramirez PA-C on 03/0804/18/2024: Weight 211, BMI 32.63. Patient's weight plateaued since last visit, but she was sick with pneumonia. Skipped 1 week of Wegovy, getting back on it. Requesting refill of Wegovy 1.0, and Zofran. Pleased with progress overall.Focusing on increasing protein. Resistance training 1 time weekly, walking her dog 2 days weekly. 07/19/2024: Weight 206, BMI 31.78. Patient feels like she has plateau'd on Wegovy 1 mg weekly, though she has not been exercising. Emphasized the importance of high protein diet and resistance training to prevent muscle loss and continue to lose weight. Continue Wegovy 1 mg weekly. Consider increasing to 1.7 mg at next visit. Follow up in 3-4 weeks. 08/18/2024: Weight 199, BMI 30. Patient congratulated on effort. Did have a norovirus last week, so diarrhea/vomiting but this is all resolved. She is very pleased that she officially is less than 200 pounds. Will continue with Wegovy 1 mg, follow-up in 6 weeks. Patient focusing on increasing protein and resistance training. 09/28/24: Weight 203, BMI 31. Will increase Wegovy to 1.7 mg. Discussed lifestyle modifications 11/07/2024: Weight 200.9, BMI 31. Congratulated on effort. She has lost fat mass and visceral adipose tissue while increasing muscle mass since last visit. Continue Wegovy 1.7 mg weekly. Continue lifestyle modifications. Follow-up in 6 weeks. 12/15/2024: Weight 194, BMI 30. Continuing to lose slow, steady weight but having nausea, and sometimes vomiting as a side effect of Wegovy 1.7 mg although she was at a plateau taking Wegovy 1 mg. Patient interested in switching to Zepbound. Will submit 2.5 mg of Zepbound to the pharmacy. Discussed proper use, side effects, insurance coverage, and prior authorization process.Scheduled for colonoscopy this Wednesday, therefore is holding off on GLP-1 at this time. 02/12/2025: Weight 200, BMI 30. Gained weight since last visit but in reviewing body scan, has maintained fat, and gained muscle. Continuing with high-protein. Patient is doing well with muscle gain. Increase Zepbound to 7.5 mg after she finishes her last 2 pens of Zepbound 5 mg. #History of breast cancer, in remission. Lymphedema on left side, educated to not take blood pressure on left side. Taking anastrozole 1 mg, BRCA negative.Oncologist states that semaglutide is safe to take with patient history #Restless leg: Taking gabapentin, educated on magnesium glycinate #Hypothyroidism: Taking Synthroid 200 mcg, follows with endocrinology. #Constipation: Educated on conservative treatment such as prune juice, hydration, exercise, as well as MiraLAX as needed etc. Total time spent today was 30 minutes of which greater than 50% was spent on coordinating and counseling Case discussed with collaborating physician Micheal Armstrong who reviewed the assessment and plan. Chart, medications, labs, vital signs reviewed. Dictation was accomplished with the use of [employer] voice recognition software, prone to medical misidentifications and grammatical errors. This is unintentional and the practitioner does try to identify and correct these, but some could still be present. Please do not hesitate to contact practitioner for clarification. All quetsions answered to patients satisfaction. Patient verbalized understanding of diagnosis and treatments explained. To call sooner prior to next visit it any questions/concerns arise. Plan Of Treatment Pending Test Test Name Order Date HEMOGLOBIN A1c 02/11/2023 INSULIN 02/11/2023 Next Appt Details Provider Name:LILIAN ALBARRAN, 03/27/2025 02:45:00 PM, [address], [place], [id number], Insurance Providers Payer Name Payer Address Payer Phone Subscriber Number Group Number Insured Name Patient Relationship to Insured Coverage Start Date Coverage End Date [facility] [employer] [facility] [address] [place] [address] [phone] [id number] Self - patient is the insured 3 Medications Administered Medication Instructions Date of Administration Dosage Notes MICC B12 INJECTION 03/16/2023 MICC MICC B12 INJECTION 05/06/2023 1 mg Micc 1mg [id number] MICC B12 INJECTION 01/04/2024 1 mg Semaglutide 05/06/2023 0.25 mg Semaglutide 05/12/2023 0.25 mg LLQ SQ Semaglutide 05/19/2023 0.25 mL Semaglutide 05/26/2023 Semaglutide 06/02/2023 0.25 mg Semaglutide 06/09/2023 0.25 mL Semaglutide 06/18/2023 0.25 mL Semaglutide 06/23/2023 0.25 mL LLQ Semaglutide 07/01/2023 Semaglutide 07/21/2023 0.5 mL Semaglutide 07/28/2023 0.5 mL Semaglutide 08/04/2023 0.5 mL Semaglutide 08/11/2023 .5 mg Semaglutide 09/06/2023 .5 mg Medical (General) History Medical History History ICD Code hx breast cancer, triple positive, BRCA negative Hypothyroidism (acquired) E03.9 Lymphedema I89.0 Constipation K59.00 Osteopenia, unspecified location M85.80 Surgical History Surgery Date(Month/Year) lymph node biopsy ovaries 2020 Colonoscopy scheduled December 22, 2024 Hospitalization History Reason Date(Month/Year) for surgery as stated above
== END 2025-03-13 15:17 | disposition home or self-care (01) ==
LOC: HO.HSM 14:47
PROVIDERS: PCP Internal Medicine; Visit Provider Psychiatry & Neurology Neurology
DX: G54.0 Brachial plexus disorders (principal); M54.12 Radiculopathy, cervical region
CPT/HCPCS: 99214